=== PATIENT | male | born 1985 | race Caucasian/White ===

== ENCOUNTER 2022-02-12 01:33 | Emergency (ER) | payer MEDICAID, SELFPAY ==
[2022-02-12 01:44] VITALS: BP 118/79; PULSE 87; RESP 18; TEMP 36; O2SAT 97
--- NOTE | 2022-02-12 02:42 | ED.EAR ---
HPI - Ear Problem General Chief complaint: Unspecified Complaint, Adult Stated complaint: Bug flew in ear Time Seen by Provider: 02/12/22 02:00 Source: patient Mode of arrival: ambulatory Limitations: no limitations History of Present Illness HPI Narrative: Patient stepped outside this evening and an insect flew into his ear. He can feel it moving around. There is minimal pain. He tried to flush it out with some water. Complaint: foreign body Location: left ear Related Data Home Medications Medication Instructions Recorded Confirmed acetaminophen 500 mg tablet 500 mg PO Q4-6H PRN 02/12/22 02/12/22 infliximab 100 mg intravenous 500 mg IV .8 weeks 02/12/22 02/12/22 solution (Remicade) Allergies Allergy/AdvReac Type Severity Reaction Status Date / Time environmental AdvReac Mild itchy eyes Uncoded 02/12/22 01:47 Review of Systems Narrative: Review of systems is as outlined above otherwise noted to be negative. [facility] Medical History (Updated 02/12/22 @ 02:03 by Marshall Vazquez MD) Anal fistula Crohn's disease Social History Smoking Status: Current every day smoker What tobacco products do you use: cigarettes Smoking packs per day: 0.5 Smoking cigarettes per day: 10.0 Years smoked: 0 Smoking pack-years: 0.00 Do you use any of these nicotine containing products: None Second hand tobacco smoke exposure: No How often do you have a drink containing alcohol: monthly or less How many standard drinks containing alcohol do you have on a typical day: 1 or 2 How often do you have six or more drinks on one occasion: Never AUDIT-C Alcohol total score: 1 Non-prescribed substance use: denies use service: No Exam Const: Vital Signs, click to edit/add: Vital Signs - 24 hr 02/12/22 01:44 Temperature 96.8 F L Pulse Rate [Left P ulse Oximeter] 87 Respiratory Rate 18 Blood Pressure [Le ft Upper Arm] 118/79 Pulse Oximetry 97 Documenting provider has reviewed patient's vital signs: yes Common normals: no apparent distress General appearance: cooperative Orientation/consciousness: Yes awake, Yes oriented to person, Yes oriented to place and Yes oriented to time HENMT: Common normals: normocephalic, hearing grossly normal bilaterally, external ears normal, EAC's normal ( Prior to my exam the nurse had drowned the insect and it is not moving), TM's normal bilaterally and external nose normal Head and scalp: normocephalic Face and sinus: normal facial exam Nose: external nose normal General ear: hearing grossly impaired External ear: external ears normal External auditory canal: EAC's normal ( Prior to my exam the nurse had drowned the insect and it is not moving) Tympanic membrane: TM's normal bilaterally Neuro: Sensorium/orientation: awake, oriented to person, oriented to place and oriented to time Course Course Hospital Course: The insect is drowned and removed with an alligator forceps. Patient tolerated this well. No complications. Vital Signs Vital signs: Initial Vital Signs Temperature 96.8 F L 02/12/22 01:44 Temperature Source Temporal Artery Scan 02/12/22 01:44 Pulse Rate 87 02/12/22 01:44 Pulse Rhythm 02/12/22 01:44 Respiratory Rate 18 02/12/22 01:44 Blood Pressure 118/79 02/12/22 01:44 Blood Pressure Mean 92 02/12/22 01:44 Blood Pressure Position Right Lateral 02/12/22 01:44 Pulse Oximetry 97 02/12/22 01:44 Oxygen Delivery Method 02/12/22 01:44 Vital Signs Temperature 96.8 F L 02/12/22 01:44 Pulse Rate 87 02/12/22 01:44 Respiratory Rate 18 02/12/22 01:44 Blood Pressure 118/79 02/12/22 01:44 Pulse Oximetry 97 02/12/22 01:44 Temperature 96.8 F L 02/12/22 01:44 Pulse Rate 87 02/12/22 01:44 Respiratory Rate 18 02/12/22 01:44 Blood Pressure 118/79 02/12/22 01:44 Pulse Oximetry 97 02/12/22 01:44 Discharge Plan Discharge Clinical Impression: Foreign body in left ear Condition: Improved Instructions: Ear Foreign Body (ED) Additional Instructions: follow-up as needed. Activity Level: No Restrictions Discharge Diet: Regular Prescriptions: No Action infliximab [Remicade] 100 mg recon soln 500 mg IV .8 weeks 0RF acetaminophen 500 mg tablet 500 mg PO Q4-6H [id number] Stand Alone Forms: MyHealth Info Instructions Procedures Foreign Body Removal Site: ear Sedation/Analgesia: none Technique: removal with forceps Confirmed by:: direct visualization Complications: none
== END 2022-02-12 04:00 | disposition home or self-care (01) ==
LOC: ED 02:11
PROVIDERS: Emergency Provider Family Medicine
DX: T16.2XXA Foreign body in left ear, initial encounter (principal)
CPT/HCPCS: 10120; 99281; 99283

== ENCOUNTER 2025-07-11 03:05 | Emergency (ER) | payer MEDICAID, SELFPAY ==
--- OUTSIDE RECORDS SUMMARY | 2025-06-22 05:40 | XMS_ITS | Continuity of Care Document ---
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 Role Phone Aleena Murillo Unavailable Unavailable Allergies, Adverse Reactions, Alerts Substance Reaction Status Criticality No Known Allergies Active No Inform ation Medications Medication Instructions Dosage Effective Dates (start - stop) Status Comments TYLENOL 8 HOUR Administer Tylenol 650 mg half hour before infusion - Active tacrolimus 0.03 % topical ointment apply by topical route 2 times every day a thin layer to the affected area(s) ; rub in gently and completely 0.00 - Active Claritin 10 mg tablet Take Claritin 10mg day before and day of infusion - Active Solu-Medrol (PF) 40 mg/mL solution for injection Administer Solu-medrol 40 mg IV pre-infusion - Active Tylenol 325 mg tablet Take Tylenol 650mg PO half hour before infusion - Active Remicade 100 mg intravenous solution Administer Remicade 5mg/kg every eight weeks, infuse by IV route - Active VITAMIN D3 (unknown strength) take 1 tablet by oral route every day Not Available - Active doxycycline hyclate 20 mg tablet take 1 tablet by oral route every day 1 hour before a meal or 2 hours after a meal 20 MG - Active Procedures Procedure Date Inj, methylpred sod succ 5mg Remicade Per 10 Mg Remicade Per 10 Mg Each Add Seq IV Push, Non Chem 25 IV Infusion Up To 1 Hour Routine Serum Collection Offic/outpt E&m Estab Low Remicade Per 10 Mg Remicade Per 10 Mg IV Infusion Up To 1 Hour Each Add Seq IV Push, Non Chem 25 Inj, methylpred sod succ 5mg Remicade Per 10 Mg Remicade Per 10 Mg Inj, methylpred sod succ 5mg Each Add Seq IV Push, Non Chem IV Infusion Up To 1 Hour Routine Serum Collection Remicade Per 10 Mg Remicade Per 10 Mg IV Infusion Up To 1 Hour Each Add Seq IV Push, Non Chem 25 Inj, methylpred sod succ 5mg Remicade Per 10 Mg Remicade Per 10 Mg IV Infusion Up To 1 Hour Inj, methylpred sod succ 5mg Remicade Per 10 Mg Remicade Per 10 Mg IV Infusion Up To 1 Hour Inj, methylpred sod succ 5mg Each Add Seq IV Push, Non Chem Routine Serum Collection Remicade Per 10 Mg Remicade Per 10 Mg IV Infusion Up To 1 Hour Each Add Seq IV Push, Non Chem 24 Inj, methylpred sod succ 5mg Remicade Per 10 Mg Remicade Per 10 Mg IV Infusion Up To 1 Hour Each Add Seq IV Push, Non Chem 24 Inj, methylpred sod succ 5mg Routine Serum Collection Offic/outpt E&m Estab Low-mod 4 Remicade Per 10 Mg IV Infusion Up To 1 Hour Inj, methylpred sod succ 5mg Each Add Seq IV Push, Non Chem 24 Remicade Per 10 Mg Routine Serum Collection Remicade Per 10 Mg IV Infusion Up To 1 Hour Each Add Seq IV Push, Non Chem 24 Remicade Per 10 Mg Inj, methylpred sod succ 5mg Remicade Per 10 Mg Remicade Per 10 Mg IV Infusion Up To 1 Hour Each Add Seq IV Push, Non Chem Inj, methylpred sod succ 5mg Remicade Per 10 Mg Remicade Per 10 Mg Methylpred Na Succinate-40 Mg 4 IV Infusion Up To 1 Hour Each Add Seq IV Push, Non Chem Routine Serum Collection Remicade Per 10 Mg Remicade Per 10 Mg Methylpred Na Succinate-40 Mg 3 Each Add Seq IV Push, Non Chem 23 IV Infusion Up To 1 Hour Offic/outpt E&m Estab Low-mod 3 Remicade Per 10 Mg Remicade Per 10 Mg Methylpred Na Succinate-40 Mg 3 IV Infusion Up To 1 Hour Each Add Seq IV Push, Non Chem 23 Remicade Per 10 Mg Remicade Per 10 Mg IV Infusion Up To 1 Hour Each Add Seq IV Push, Non Chem 23 Methylpred Na Succinate-40 Mg 3 Routine Serum Collection Remicade Per 10 Mg Remicade Per 10 Mg IV Infusion Up To 1 Hour Each Add Seq IV Push, Non Chem Methylpred Na Succinate-40 Mg 3 Remicade Per 10 Mg Remicade Per 10 Mg Methylpred Na Succinate-40 Mg 3 IV Infusion Up To 1 Hour Each Add Seq IV Push, Non Chem Routine Serum Collection Offic/outpt E&m Estab Low-mod 3 Remicade Per 10 Mg Remicade Per 10 Mg Methylpred Na Succinate-40 Mg 3 IV Infusion Up To 1 Hour Each Add Seq IV Push, Non Chem Routine Serum Collection Remicade Per 10 Mg Remicade Per 10 Mg IV Infusion Up To 1 Hour Each Add Seq IV Push, Non Chem Methylpred Na Succinate-40 Mg 3 Routine Serum Collection Remicade Per 10 Mg Remicade Per 10 Mg IV Infusion Up To 1 Hour Methylpred Na Succinate-40 Mg 2 Each Add Seq IV Push, Non Chem IV Infusion Up To 1 Hour Each Add Seq IV Push, Non Chem Methylpred Na Succinate-40 Mg 2 Remicade Per 10 Mg Remicade Per 10 Mg Routine Serum Collection Offic/outpt E&m Estab Low-mod 2 Each Add Seq IV Push, Non Chem IV Infusion Up To 1 Hour Remicade Per 10 Mg Remicade Per 10 Mg Methylpred Na Succinate-40 Mg 2 IV Infusion Up To 1 Hour Each Add Seq IV Push, Non Chem 22 Remicade Per 10 Mg Remicade Per 10 Mg Methylpred Na Succinate-40 Mg 2 Colonoscopy Flex; W/bx 1/mx Level Iv-surg Path Gross/micro 22 IV Infusion Up To 1 Hour Each Add Seq IV Push, Non Chem 22 Remicade Per 10 Mg Remicade Per 10 Mg Methylpred Na Succinate-40 Mg 2 Routine Serum Collection Offic/outpt E&m Estab Mod-hi 2 22 Immuniz Admin; 1/combo Vacc/to 22 Pneumococcal Polysacch Vac-flori 22 IV Infusion Up To 1 Hour Each Add Seq IV Push, Non Chem 22 Methylpred Na Succinate-40 Mg 2 Remicade Per 10 Mg Remicade Per 10 Mg Telephone E&M II 11-20 Min MILLA Each Add Seq IV Push, Non Chem 21 IV Infusion Up To 1 Hour Methylpred Na Succinate-40 Mg 1 Remicade Per 10 Mg Remicade Per 10 Mg IV Infusion Up To 1 Hour Each Add Seq IV Push, Non Chem 21 Remicade Per 10 Mg Remicade Per 10 Mg Methylpred Na Succinate-40 Mg 1 Routine Serum Collection IV Infusion Up To 1 Hour Each Add Seq IV Push, Non Chem 21 Remicade Per 10 Mg Remicade Per 10 Mg Methylpred Na Succinate-40 Mg 1 IV Infusion Up To 1 Hour Each Add Seq IV Push, Non Chem 21 Remicade Per 10 Mg Remicade Per 10 Mg Methylpred Na Succinate-40 Mg 1 Routine Serum Collection IV Infusion Up To 1 Hour Each Add Seq IV Push, Non Chem 21 Methylpred Na Succinate-40 Mg 1 Remicade Per 10 Mg Remicade Per 10 Mg Routine Serum Collection Hepatic Function Panel Bld Ct; Hg/pltlt Ct Auto/compl 21 IV Infusion Up To 1 Hour Each Add Seq IV Push, Non Chem 21 Methylpred Na Succinate-40 Mg 1 Remicade Per 10 Mg Remicade Per 10 Mg IV Infusion Up To 1 Hour Each Add Seq IV Push, Non Chem 21 Methylpred Na Succinate-40 Mg 1 Remicade Per 10 Mg Remicade Per 10 Mg Offic/outpt E&m Estab Low-mod 0 IV Infusion Up To 1 Hour Each Add Seq IV Push, Non Chem 20 Methylpred Na Succinate-40 Mg 0 Remicade Per 10 Mg Remicade Per 10 Mg Routine Serum Collection Bld Ct; Hg/pltlt Ct Auto/compl 20 Hepatic Function Panel IV Infusion Up To 1 Hour Each Add Seq IV Push, Non Chem 20 Methylpred Na Succinate-40 Mg 0 Remicade Per 10 Mg Remicade Per 10 Mg Each Add Seq IV Push, Non Chem 20 IV Infusion Up To 1 Hour Methylpred Na Succinate-40 Mg 0 Remicade Per 10 Mg Remicade Per 10 Mg Established Level 3 or 15-24 min 2019 IV Infusion Up To 1 Hour Each Add Seq IV Push, Non Chem 20 Methylpred Na Succinate-40 Mg 0 Remicade Per 10 Mg Routine Serum Collection Hepatic Function Panel Bld Ct; Hg/pltlt Ct Auto/compl 20 IV Infusion Up To 1 Hour Each Add Seq IV Push, Non Chem 20 Remicade Per 10 Mg Methylpred Na Succinate-40 Mg 0 Each Add Seq IV Push, Non Chem 20 IV Infusion Up To 1 Hour Methylpred Na Succinate-40 Mg 0 Remicade Per 10 Mg IV Infusion Up To 1 Hour Each Add Seq IV Push, Non Chem 19 Remicade Per 10 Mg Methylpred Na Succinate-40 Mg 9 Routine Serum Collection Bld Ct; Hg/pltlt Ct Auto/compl 19 Hepatic Function Panel IV Infusion Up To 1 Hour Each Add Seq IV Push, Non Chem 19 Methylpred Na Succinate-40 Mg 9 Remicade Per 10 Mg IV Infusion Up To 1 Hour Each Add Seq IV Push, Non Chem 19 Methylpred Na Succinate-40 Mg 9 Remicade Per 10 Mg Remicade Per 10 Mg cancelled appt IV Infusion Up To 1 Hour Remicade Per 10 Mg Remicade Per 10 Mg Routine Serum Collection Hepatic Function Panel Bld Ct; Hg/pltlt Ct Auto/compl 19 IV Infusion Up To 1 Hour Each Add Seq IV Push, Non Chem 19 Methylpred Na Succinate-40 Mg 9 Remicade Per 10 Mg Remicade Per 10 Mg Offic/outpt E&m Estab Low-mod 9 IV Infusion Up To 1 Hour Each Add Seq IV Push, Non Chem 19 Remicade Per 10 Mg Methylpred Na Succinate-40 Mg 9 Routine Serum Collection Bld Ct; Hg/pltlt Ct Auto/compl 19 IV Infusion Up To 1 Hour Each Additional Hour Each Add Seq IV Push, Non Chem 19 Methylpred Na Succinate-40 Mg 9 Remicade Per 10 Mg Routine Serum Collection Bld Ct; Hg/pltlt Ct Auto/compl 19 Hepatic Function Panel IV Infusion Up To 1 Hour Each Additional Hour Each Add Seq IV Push, Non Chem 18 Methylpred Na Succinate-40 Mg 8 Remicade Per 10 Mg IV Infusion Up To 1 Hour Each Additional Hour Each Add Seq IV Push, Non Chem 18 Methylpred Na Succinate-40 Mg 8 Remicade Per 10 Mg Remicade Per 10 Mg Offic/outpt E&m Estab Low-mod 8 Routine Serum Collection Cyanocobalamin Vitamin D; 25 Hydroxy Each Add Seq IV Push, Non Chem 18 IV Infusion Up To 1 Hour Each Additional Hour Methylpred Na Succinate-40 Mg 8 Remicade Per 10 Mg Routine Serum Collection Bld Ct; Hg/pltlt Ct Auto/compl 18 Hepatic Function Panel IV Infusion Up To 1 Hour Each Additional Hour Each Add Seq IV Push, Non Chem 18 Methylpred Na Succinate-40 Mg 8 Remicade Per 10 Mg Each Add Seq IV Push, Non Chem 18 IV Infusion Up To 1 Hour Each Additional Hour Methylpred Na Succinate-40 Mg 8 Remicade Per 10 Mg Each Add Seq IV Push, Non Chem 18 IV Infusion Up To 1 Hour Each Additional Hour Methylpred Na Succinate-40 Mg 8 Remicade Per 10 Mg Routine Serum Collection Hepatic Function Panel Bld Ct; Hg/pltlt Ct Auto/compl 18 IV Infusion Up To 1 Hour Each Additional Hour Each Add Seq IV Push, Non Chem 17 Methylpred Na Succinate-40 Mg 7 Remicade Per 10 Mg IV Infusion Up To 1 Hour Each Additional Hour Each Add Seq IV Push, Non Chem 17 Methylpred Na Succinate-40 Mg 7 Remicade Per 10 Mg Offic/outpt E&m Estab Mod-hi 2 17 Routine Serum Collection Immuniz Admin; 1/combo Vacc/to 17 Influenza vaccine-quadrivalent 0.5 ML Se Immuniz Admin; 2/> Sing/comb V 17 Hepatitis A Vaccine Adult Dose 17 Iron Iron Binding Capacity Cyanocobalamin Folic Acid; Serum Ferritin Vitamin D; 25 Hydroxy Bilirubin; Direct Comp Metabolic Panel Bld Ct; Hg/pltlt Ct Auto/compl 17 IV Infusion Up To 1 Hour Each Additional Hour Each Add Seq IV Push, Non Chem 17 Methylpred Na Succinate-40 Mg 7 Remicade Per 10 Mg IV Infusion Up To 1 Hour Each Additional Hour Each Add Seq IV Push, Non Chem 17 Methylpred Na Succinate-40 Mg 7 Remicade Per 10 Mg IV Infusion Up To 1 Hour Each Additional Hour Each Add Seq IV Push, Non Chem 17 Methylpred Na Succinate-40 Mg 7 Remicade Per 10 Mg Remicade Per 10 Mg Routine Serum Collection Hepatic Function Panel Bld Ct; Hg/pltlt Ct Auto/compl 17 Each Add Seq IV Push, Non Chem 17 IV Infusion Up To 1 Hour Each Additional Hour Methylpred Na Succinate-40 Mg 7 Remicade Per 10 Mg IV Infusion Up To 1 Hour Each Additional Hour Each Add Seq IV Push, Non Chem 16 Methylpred Na Succinate-40 Mg 6 Remicade Per 10 Mg Remicade Per 10 Mg Routine Serum Collection Hepatic Function Panel Bld Ct; Hg/pltlt Ct Auto/compl 16 IV Infusion Up To 1 Hour Each Additional Hour Remicade Per 10 Mg IV Infusion Up To 1 Hour Each Additional Hour Remicade Per 10 Mg IV Infusion Up To 1 Hour Each Additional Hour Remicade Per 10 Mg Routine Serum Collection Bld Ct; Hg/pltlt Ct Auto/compl 16 Hepatic Function Panel IV Infusion Up To 1 Hour Each Additional Hour Remicade Per 10 Mg Remicade Per 10 Mg IV Infusion Up To 1 Hour Each Additional Hour Remicade Per 10 Mg Remicade Per 10 Mg Offic/outpt E&m Estab Mod-hi 2 16 Routine Serum Collection Immuniz Admin; 1/combo Vacc/to 16 Influenza vaccine-quadrivalent 16 Immuniz Admin; 2/> Sing/comb V 16 [id number] Vaccine Immuniz Admin; 2/> Sing/comb V 16 Hepatitis A Vaccine Adult Dose 16 Cyanocobalamin IV Infusion Up To 1 Hour Each Additional Hour Remicade Per 10 Mg Remicade Per 10 Mg Routine Serum Collection Bld Ct; Hg/pltlt Ct Auto/compl 15 Hepatic Function Panel IV Infusion Up To 1 Hour Each Additional Hour Remicade Per 10 Mg Remicade Per 10 Mg IV Infusion Up To 1 Hour Each Additional Hour Remicade Per 10 Mg Remicade Per 10 Mg IV Infusion Up To 1 Hour Each Additional Hour Remicade Per 10 Mg Remicade Per 10 Mg Routine Serum Collection Bld Ct; Hg/pltlt Ct Auto/compl 15 Hepatic Function Panel IV Infusion Up To 1 Hour Each Additional Hour Remicade Per 10 Mg Remicade Per 10 Mg IV Infusion Up To 1 Hour Each Additional Hour Remicade Per 10 Mg Offic/outpt E&m Estab Mod-hi 2 15 Routine Serum Collection Hepatitis A Antibody; Igg & Ig 15 Hepatitis B Surface Antibody IV Infusion Up To 1 Hour Each Additional Hour Remicade Per 10 Mg Routine Serum Collection Bld Ct; Hg/pltlt Ct Auto/compl 14 Hepatic Function Panel IV Infusion Up To 1 Hour Each Additional Hour Remicade Per 10 Mg IV Infusion Up To 1 Hour Each Additional Hour Remicade Per 10 Mg Offic/outpt E&m Estab Low-mod 4 Routine Serum Collection Hepatic Function Panel Colonoscopy Flex; W/bx 1/mx Level Iv-surg Path Gross/micro 14 IV Infusion Up To 1 Hour Each Additional Hour Remicade Per 10 Mg Offic/outpt E&m Estab Mod-hi 2 14 Routine Serum Collection Pneumococcal Polysacch Vac-flori [address]; Hg/pltlt Ct Auto/compl 14 Cyanocobalamin Immuniz Admin; 1/combo Vacc/to 14 Remicade Per 10 Mg IV Infusion Up To 1 Hour Each Additional Hour Routine Serum Collection Bld Ct; Hg/pltlt Ct Auto/compl 14 Hepatic Function Panel Remicade Per 10 Mg IV Infusion Up To 1 Hour Each Additional Hour Remicade Per 10 Mg IV Infusion Up To 1 Hour Each Additional Hour Routine Serum Collection IV Infusion Up To 1 Hour Each Additional Hour IV Infusion Up To 1 Hour Each Additional Hour Routine Serum Collection Bld Ct; Hg/pltlt Ct Auto/compl 13 Hepatic Function Panel IV Infusion Up To 1 Hour Each Additional Hour Remicade Per 10 Mg IV Infusion Up To 1 Hour Each Additional Hour Remicade Per 10 Mg IV Infusion Up To 1 Hour Each Additional Hour Remicade Per 10 Mg IV Infusion Up To 1 Hour Each Additional Hour Colonoscopy Flex; W/bx 1/mx Level Iv-surg Path Gross/micro [address] Hg/pltlt Ct Auto/compl 12 Cyanocobalamin Comp Metabolic Panel Offic/outpt E&m Estab Mod-hi 2 12 Immuniz Admin; 1/combo Vacc/to 12 Routine Serum Collection G8447 Influenza Vaccine Routine Serum Collection Bld Ct; Hg/pltlt Ct Auto/compl 12 Hepatic Function Panel Remicade Per 10 Mg IV Infusion Up To 1 Hour Each Additional Hour Remicade Per 10 Mg IV Infusion Up To 1 Hour Each Additional Hour Remicade Per 10 Mg IV Infusion Up To 1 Hour Each Additional Hour Offic/outpt E&m Estab Low-mod 2 G8447 Remicade Per 10 Mg Each Add Seq IV Push, Non Chem 12 Methylpred Na Succinate-40 Mg 2 IV Infusion Up To 1 Hour Each Additional Hour Remicade Per 10 Mg Skin Test; Tuberculosis Intrad 12 Offic/outpt E&m Estab Mod-hi 2 12 Pneumococcal Polysacch Vac-flori 12 Immuniz Admin; 1/combo Vacc/to 12 Routine Serum Collection G8447 Influenza Vaccine Immuniz Admin; 2/> Sing/comb V 12 Routine Serum Collection IV Infusion Up To 1 Hour Each Additional Hour Remicade Per 10 Mg IV Infusion Up To 1 Hour Each Additional Hour Remicade Per 10 Mg IV Infusion Up To 1 Hour Each Additional Hour Remicade Per 10 Mg Offic/outpt E&m Estab Mod-hi 2 09 Routine Serum Collection G8447 IV Infusion Up To 1 Hour Each Additional Hour Remicade Per 10 Mg IV Infusion Up To 1 Hour Each Additional Hour Remicade Per 10 Mg Offic/outpt E&m Estab Mod-hi 2 09 Routine Serum Collection G8447 IV Infusion Up To 1 Hour Each Additional Hour Remicade Per 10 Mg IV Infusion Up To 1 Hour Each Additional Hour Remicade Per 10 Mg IV Infusion Up To 1 Hour Each Additional Hour Remicade Per 10 Mg IV Infusion Up To 1 Hour Each Additional Hour Remicade Per 10 Mg IV Infusion Up To 1 Hour Each Additional Hour Remicade Per 10 Mg Offic/outpt E&m Estab Low-mod 8 IV Infusion Up To 1 Hour Each Additional Hour Remicade Per 10 Mg IV Infusion Up To 1 Hour Each Additional Hour Remicade Per 10 Mg Offic/outpt E&m Estab Low-mod 7 IV Infusion Up To 1 Hour Each Additional Hour Remicade Per 10 Mg IV Infusion Up To 1 Hour Each Additional Hour Remicade Per 10 Mg Offic/outpt E&m Estab Low-mod 7 Routine Serum Collection IV Infusion Up To 1 Hour Each Additional Hour Remicade Per 10 Mg IV Infusion Up To 1 Hour Each Additional Hour Remicade Per 10 Mg Offic/outpt E&m Estab Low-mod 6 Routine Serum Collection IV Infusion Up To 1 Hour Each Additional Hour Remicade Per 10 Mg Offic/outpt E m Estab Low Routine Serum Collection Offic/outpt E m Estab Mod Routine Serum Collection Offic Cons New/estab Mod- Routine Serum Collection Advance Directives Directive Yes / No Effective Date File Name No Information Encounters Encounter Description Practice Location Reason(s) For Visit Diagnoses Date Provider Providers Copied on Encounter [facility] ELYSSA HERNANDEZ [address] [address], [place], [place], [id number], [place] tel:[phone] [facility] No Information 5 Cassie Flood. [address] [facility], [place], [place], [id number], [place]. tel:[phone] Karl Ma MD. tel:[phone] [facility], [address] [address], [place], [id number], [place] tel:[phone] [facility] [place] Crohn's disease of large intestine without complications 5 George Steiner. [address], [id number], [place]. tel:[phone] Referring Provider: Referral Self, USE FOR SELF REFERRALS. [facility], [address] [address], [place], [id number], [place] tel:[phone] [facility] No Information 5 Yolanda Todd. [address], [id number], [place]. tel:[phone] Referring Provider: Referral Self, USE FOR SELF REFERRALS. [facility], [address] [address], [place], [id number], [place] tel:[phone] [facility] [place] Crohn's disease of large intestine without complications 5 Ernie Tamayo. [address], [id number], [place]. tel:[phone] Offic/outpt E&m Estab Low [facility], [address] [address], [place], [id number], [place] tel:[phone] [facility] GI Symptoms or Concerns (chief complaint) Crohn's disease of perianal region with other complication 5 Yolanda Todd. [address], [id number], [place]. tel:[phone] Karl Ma MD. tel:[phone] erring Provider: Referral Self, USE FOR SELF REFERRALS. [facility], [address] [address], [place], [id number], [place] tel:[phone] [facility] [place] Crohn's disease of large intestine without complications 5 Isrrael Olmos. [address] [facility], [facility] [address], [place], [id number], [place]. tel:[phone] Karl Ma MD. tel:[phone] erring Provider: Referral Self, USE FOR SELF REFERRALS. [facility], [address] [address], [place], [id number], [place] tel:[phone] [facility] [place] Crohn's disease of large intestine without complications 5 Ernie Tamayo. [address] [facility], [facility] [address], [place], [id number], [place]. tel:[phone] [facility], [address] [address], [place], [id number], [place] tel:[phone] [facility] [place] Crohn's disease of large intestine without complications 5 Candido Sexton. [address], [id number], [place]. tel:[phone] Karl Ma MD. tel:[phone] erring Provider: Referral Self, USE FOR SELF REFERRALS. [facility], [address] [address], [place], [id number], [place] tel:[phone] [facility] Crohn's disease of large intestine without complications 5 Yolanda Todd. [address] [facility], [facility] [address], [place], [id number], [place]. tel:[phone] Referring Provider: Referral Self, USE FOR SELF REFERRALS. [facility], [address] [address], [place], [id number], [place] tel:[phone] [facility] Crohn's disease of large intestine without complications 5 Yolanda Todd. [address] [facility], [facility] [address], [place], [id number], [place]. tel:[phone] Karl Ma MD. tel:[phone] [facility], [address] [address], [place], [id number], [place] tel:[phone] [facility]fusion [place] Crohn's disease of large intestine without complications 5 Isrrael Olmos. [address] [facility], [address], [id number], [place]. tel:[phone] Ma MD. tel:[phone] erring Provider: Referral Self, USE FOR SELF REFERRALS. [facility], [address] [address], [place], [place], [id number], [place] tel:[phone] [facility] [place] Crohn's disease of large intestine without complications 5 Yolanda Todd. [address] [place] [address], [id number], [place]. tel:[phone] [facility], [address] [address], [place], [id number], [place] tel:[phone] [facility] [place] Crohn's disease of large intestine without complications 5 Bipin Elaine. [address] [place] [address], [id number], [place]. tel:[phone] Ma MD. tel:[phone] erring Provider: Referral Self, USE FOR SELF REFERRALS. [facility], [address] [address], [place], [place], [id number], [place] tel:[phone] [facility] [place] Crohn's disease of large intestine without complications 5 Yolanda Todd. [address] [place] [address], [id number], [place]. tel:[phone] Ma MD. tel:[phone] [facility], [address] [address], [place], [id number], [place] tel:[phone] [facility] [place] Crohn's disease of large intestine without complications 5 Manolo Garcia. [address] [place] [address], [id number], [place]. tel:[phone] Karl Ma MD. tel:[phone] erring Provider: Referral Self, USE FOR SELF REFERRALS. [facility], [address] [address], [place], [id number], [place] tel:[phone] [facility] Crohn's disease of large intestine without complications 5 Yolanda Todd. [address] [place] [address], [id number], [place]. tel:[phone] Referring Provider: Referral Self, USE FOR SELF REFERRALS. [facility], [address] [address], [place], [id number], [place] tel:[phone] [facility] [place] Crohn's disease of large intestine without complications 5 Yolanda Todd. [address] [place] [address], [id number], [place]. tel:[phone] Karl Ma MD. tel:[phone] [facility], [address] [address], [place], [id number], [place] tel:[phone] [facility] Crohn's disease of large intestine without complications 4 Perez Raphael. [address] [place] [address], [id number], [place]. tel:[phone] Karl Ma MD. tel:[phone] erring Provider: Referral Self, USE FOR SELF REFERRALS. [facility], [address] [address], [place], [id number], [place] tel:[phone] [facility] [place] Crohn's disease of large intestine without complications 4 Yolanda Todd. [address] [place] [address], [place], [id number], [place]. tel:[phone] [facility], [address] [address], [place], [id number], [place] tel:[phone] [facility] [place] Crohn's disease of large intestine without complications Apr- 4 Sabra Herndon. [address], [id number], [place]. tel:[phone] Karl Ma MD. tel:[phone] erring Provider: Referral Self, USE FOR SELF REFERRALS. [facility], [address] [address], [place], [id number], [place] tel:[phone] [facility] Crohn's disease of large intestine with other complication Apr- 4 Yolanda Todd. [address] [place] [address], [id number], [place]. tel:[phone] Referring Provider: Referral Self, USE FOR SELF REFERRALS. [facility], [address] [address], [place], [id number], [place] tel:[phone] [facility] [place] Crohn's disease of large intestine without complications Apr- 4 Yolanda Todd. [address] [place] [address], [id number], [place]. tel:[phone] Offic/outpt E&m Estab Low-mod [facility], [address] [address], [place], [id number], [place] tel:[phone] [facility] GI Symptoms or Concerns (chief complaint) Crohn's disease of perianal region with other complication 4 Yolanda Todd. [address] [place] [address], [id number], [place]. tel:[phone] Karl Ma MD. tel:[phone] erring Provider: Referral Self, USE FOR SELF REFERRALS. [facility], [address] [address], [place], [address], [place] tel:[phone] [facility] [place] Crohn's disease of large intestine without complications 4 Alvaro Grayson [address], [id number], [place]. tel:[phone] Ma MD. tel:[phone] erring Provider: Referral Self, USE FOR SELF REFERRALS. [facility], [address] [address], [place], [address], [place] tel:[phone] [facility] Crohn's disease of large intestine without complications 4 Yolanda Todd. 3001 [facility] [address], [place], [address], [place]. tel:[phone] Ma MD. tel:[phone] erring Provider: Referral Self, USE FOR SELF REFERRALS. [facility], [address] [address], [place], [address], [place] tel:[phone] [facility] [place] Crohn's disease of large intestine without complications 4 [facility] Bee. [address], [id number], [place]. tel:[phone] [facility], [address] [address], [place], [address], [place] tel:[phone] [facility] [place] Crohn's disease of large intestine without complications 4 Flori Agrawal. [address], [id number], [place]. tel:[phone] Ma MD. tel:[phone] erring Provider: Referral Self, USE FOR SELF REFERRALS. [facility], [address] [address], [place], [address], [place] tel:[phone] [facility] [place] Crohn's disease of large intestine without complications 4 [facility]. 3001 [facility], [facility] [address], [place], [address], [place]. tel:[phone] [facility], [address] [address], [place], [address], [place] tel:[phone] [facility] [place] Crohn's disease of large intestine without complications 4 Nando Sales. [address], [id number], [place]. tel:[phone] Karl Ma MD. tel:[phone] erring Provider: Referral Self, USE FOR SELF REFERRALS. [facility], [address] [address], [place], [address], [place] tel:[phone] [facility] Crohn's disease of large intestine without complications 4 Jennifer Gamboa. [address], [id number], [place]. tel:[phone] [facility], [address] [address], [place], [address], [place] tel:[phone] [facility] [place] Crohn's disease of large intestine without complications 4 Axel Portillo. [address], [id number], [place]. tel:[phone] Referring Provider: Referral Self, USE FOR SELF REFERRALS. [facility], [address] [address], [place], [address], [place] tel:[phone] [facility] Crohn's disease of large intestine without complications 4 Yolanda Todd. 3001 [facility] [address], [place], [address], [place]. tel:[phone] Karl Ma MD. tel:[phone] erring Provider: Referral Self, USE FOR SELF REFERRALS. [facility], [address] [address], [place], [address], [place] tel:[phone] [facility] Crohn's disease of large intestine without complications 4 Jennifer Gamboa. [address], [address], [place]. tel:[phone] [facility], [address] [address], [place], [address], [place] tel:[phone] [facility] [place] Crohn's disease of large intestine without complications 3 Yolanda Todd. [address] [place] [address], [id number], [place]. tel:[phone] Ma MD. tel:[phone] erring Provider: Referral Self, USE FOR SELF REFERRALS. Offic/outpt E&m Estab Low-mod [facility], [address] [address], [place], [address], [place] tel:[phone] [facility] GI Symptoms or Concerns (chief complaint) Crohn's disease of perianal region with other complication 3 Jennifer Gamboa. [address] [place] [address], [id number], [place]. tel:[phone] Ma MD. tel:[phone] erring Provider: Referral Self, USE FOR SELF REFERRALS. [facility], [address] [address], [place], [address], [place] tel:[phone] [facility] Crohn's disease of large intestine without complications 3 Yolanda Todd. [address] [place] [address], [id number], [place]. tel:[phone] [facility], [address] [address], [place], [address], [place] tel:[phone] [facility] [place] Crohn's disease of large intestine without complications 3 George Steiner. [address] [place] [address], [id number], [place]. tel:[phone] Ma MD. tel:[phone] erring Provider: Referral Self, USE FOR SELF REFERRALS. [facility], [address] [address], [place], [address], [place] tel:[phone] [facility] [place] Crohn's disease of large intestine without complications 3 Yolanda Todd. 3001 [facility], [facility] [address], [place], [address], [place]. tel:[phone] [facility], [address] [address], [place], [address], [place] tel:[phone] [facility] [place] Crohn's disease of large intestine without complications 3 Zaire Light. 3001 [facility], [address], [address], [place]. tel:[phone] Referring Provider: Referral Self, USE FOR SELF REFERRALS. [facility], [address] [address], [place], [address], [place] tel:[phone] [facility] Crohn's disease of large intestine without complications 3 Yolanda Todd. 3001 [facility], [facility] [address], [place], [address], [place]. tel:[phone] Karl Ma MD. tel:[phone] erring Provider: Referral Self, USE FOR SELF REFERRALS. [facility], [address] [address], [place], [address], [place] tel:[phone] [facility] Crohn's disease of large intestine without complications 3 Yolanda Todd. 3001 [facility], [facility] [address], [place], [address], [place]. tel:[phone] [facility], [address] [address], [place], [address], [place] tel:[phone] [facility] [place] Crohn's disease of large intestine without complications 3 Alvaro Grayson 3001 [facility], [facility] [address], [place], [address], [place]. tel:[phone] Karl Ma MD. tel:[phone] erring Provider: Referral Self, USE FOR SELF REFERRALS. [facility], [address] [address], [place], [address], [place] tel:[phone] [facility] Crohn's disease of large intestine without complications Jan- 3 Yolanda Todd. [address] [place] [address], [id number], [place]. tel:[phone] [facility], [address] [address], [place], [address], [place] tel:[phone] Infusion [place] Crohn's disease of large intestine without complications 0 3 Jacky Donaldson. [facility] [address], [id number], [place]. tel:[phone] Karl Ma MD. tel:[phone] erring Provider: Referral Self, USE FOR SELF REFERRALS. [facility], [address] [address], [place], [address], [place] tel:[phone] [facility] Crohn's disease of large intestine with fistula 3 Yolanda Todd. [address], [id number], [place]. tel:[phone] Referring Provider: Referral Self, USE FOR SELF REFERRALS. [facility], [address] [address], [place], [address], [place] tel:[phone] [facility] Perianal Crohn's disease, with fistula 3 Yolanda Todd. [address] [place] [address], [id number], [place]. tel:[phone] Offic/outpt E&m Estab Low-mod [facility], [address] [address], [place], [address], [place] tel:[phone] [facility] GI Symptoms or Concerns (chief complaint) Perianal Crohn's disease, with fistula 3 Yolanda Todd. 3001 [facility], [facility] 500, [place], [place], [address], [place]. tel:[phone] Karl Ma MD. tel:[phone] erring Provider: Referral Self, USE FOR SELF REFERRALS. [facility], [address] [address], [place], [address], [place] tel:[phone] [facility] [place] Crohn's disease of large intestine without complications 3 Axel Portillo. 3001 [facility], [facility] [address], [place], [address], [place]. tel:[phone] Referring Provider: Referral Self, USE FOR SELF REFERRALS. [facility], [address] [address], [place], [address], [place] tel:[phone] [facility] Crohn's disease of large intestine without complications 3 Yolanda Todd. 3001 [facility], [facility] [address], [place], [address], [place]. tel:[phone] Karl Ma MD. tel:[phone] erring Provider: Referral Self, USE FOR SELF REFERRALS. [facility], [address] [address], [place], [address], [place] tel:[phone] [facility] [place] Crohn's disease of large intestine without complications 3 Yolanda Todd. 3001 [facility], [facility] [address], [place], [address], [place]. tel:[phone] [facility], [address] [address], [place], [address], [place] tel:[phone] [facility] [place] Crohn's disease of large intestine without complications 3 Isrrael Olmos. 3001 [facility], [facility] [address], [place], [address], [place]. tel:[phone] Karl Ma MD. tel:[phone] erring Provider: Referral Self, USE FOR SELF REFERRALS. [facility], [address] [address], [place], [address], [place] tel:[phone] [facility] Crohn's disease of large intestine without complications 3 Yolanda Todd. 3001 [facility], [facility] 500, [place], [place], [address], [place]. tel:[phone] [facility], [address] [address], [place], [address], [place] tel:[phone] [facility] Crohn's disease of large intestine without complications 3 Yolanda Todd. 3001 [facility], [address], [id number], [place]. tel:[phone] [facility], [address] [address], [place], [address], [place] tel:[phone] [facility] Crohn's disease of large intestine without complications 2 Yolanda Todd. 3001 [facility], [address], [id number], [place]. tel:[phone] Karl Ma MD. tel:[phone] erring Provider: Referral Self, USE FOR SELF REFERRALS. [facility], [address] [address], [place], [address], [place] tel:[phone] [facility] [place] Crohn's disease of large intestine without complications 2 Shahriar Naranjo. 3001 [facility], [facility] [address], [place], [address], [place]. tel:[phone] Referring Provider: Referral Self, USE FOR SELF REFERRALS. [facility], [address] [address], [place], [address], [place] tel:[phone] [facility] [place] Crohn's disease of large intestine without complications 2 Yolanda Todd. 3001 [facility], [facility] [address], [place], [address], [place]. tel:[phone] [facility], [address] [address], [place], [address], [place] tel:[phone] [facility] Crohn's disease of large intestine without complications Sep-2 0-202 2 Hubert Cee. [address] [place] [address], [place] [address], [place], [place], [address], [place]. tel:[phone] Referring Provider: Jaye Luz, [address] [place] [address] 500, [place], [address] . tel:[phone] [facility], [address] [address], [place], [address], [place] tel:[phone] [facility] [place] Crohn's disease of large intestine without complications Sep-2 0 2 Ever Carlson. [address] [place] [address], [id number], [place]. tel:[phone] Karl Ma MD. tel:[phone] erring Provider: Referral Self, USE FOR SELF REFERRALS. [facility], [address] [address], [place], [address], [place] tel:[phone] [facility] Crohn's disease of large intestine without complications Sep-2 0 2 Yolanda Todd. [address] [place] [address], [place], [place], [address], [place]. tel:[phone] Karl Ma MD. tel:[phone] erring Provider: Referral Self, USE FOR SELF REFERRALS. Offic/outpt E&m Estab Low-mod [facility], [address] [address], [place], [address], [place] tel:[phone] [facility] GI Symptoms or Concerns (chief complaint) Perianal Crohn's disease, with fistula Sep-0 6 2 Yolanda Todd. [address] [place] [address], [place], [place], [address], [place]. tel:[phone] Ma MD. tel:[phone] erring Provider: Harshal Amaya MD, [address], [place], [address]. tel:[phone] [facility], [address] [address], [place], [address], [place] tel:[phone] [facility] [place] Crohn's disease of large intestine without complications 2 Jacky Donaldson. 3001 [facility], [facility] 500, [place], [place], [address], [place]. tel:[phone] 8418Riki Ma MD. tel:[phone] erring Provider: Referral Self, USE FOR SELF REFERRALS. [facility], [address] [address], [place], [place], [address], [place] tel:[phone] [facility] [place] Crohn's disease of large intestine without complications 2 Jacky Donladson. 3001 [facility], [facility] [address], [place], [address], [place]. tel:[phone] 1876Riki Ma MD. tel:[phone] erring Provider: Referral Self, USE FOR SELF REFERRALS. [facility], [address] [address], [place], [address], [place] tel:[phone] [facility] Crohn's disease of large intestine with fistulaExternal hemorrhoidsResi dual hemorrhoidal skin tagsCrohn's disease of large intestine with fistula 2 Yolanda Todd. 3001 [facility], [address], [place], [place], [address], [place]. tel:[phone] 5851Andrez Ma MD. tel:[phone] erring Provider: Harshal Amaya MD, [address], [place], [address]. tel:[phone] [facility], [address] [address], [facility], [address], [place] tel:[phone] [facility] [place] Crohn's disease of large intestine without complications Apr-0 2 Flori Agrawal. [address] [place] [address], [id number], . tel:[phone] 6136Andrez Ma MD. [phone] erring Provider: Referral Self, USE FOR SELF REFERRALS. [facility], [address] [address], [place] [facility], [address], [place] tel:[phone] [facility] Crohn's disease of large intestine without complications Apr-0 2 Yolanda Todd. [address] [place] [address], [address], [place]. tel:[phone] 5577Andrez Ma MD. tel:[phone] erring Provider: Referral Self, USE FOR SELF REFERRALS. [facility], [address] [address], [place], [address], [place] tel:[phone] [facility] No Information Oct-2 2 Yumiko Lau. [address] [place] [address], [id number], [place]. tel:[phone] Ma MD. tel:[phone] Offic/outpt E&m Estab Mod-hi 2 [facility], [address] [address], [place], [address], [place] tel:[phone] [facility] GI Symptoms or Concerns (chief complaint) Crohn's disease of perianal region with fistulaRash Fe-2 2 Yolanda Todd. [address] [place] [address], [id number], [place]. tel:[phone] 7066Andrez Ma MD. tel:[phone] erring Provider: Referral Self, USE FOR SELF REFERRALS. [facility], [address] [address], [place], [address], [place] tel:[phone] [facility] Crohn's disease of large intestine without complications Feb-0 8-202 2 Ever Carlson. [address], [id number], [place]. tel:[phone] Karl Ma MD. tel:[phone] erring Provider: Referral Self, USE FOR SELF REFERRALS. Telephone E&M II 11-20 Min MD MILLA [facility], [address] [address], [place], [address], [place] tel:[phone] [facility] GI Symptoms or Concerns (chief complaint) Crohn's disease of perianal region with fistula 2 Uzielmehdi VYAS Judi. [address] [place] [address], [id number], [place]. tel:[phone] Karl Ma MD. tel:[phone] erring Provider: Referral Self, USE FOR SELF REFERRALS. [facility], [address] [address], [place], [address], [place] tel:[phone] [facility] [place] Crohn's disease of large intestine without complications 1 Jacky Donaldson. [address] [place] [address], [id number], [place]. tel:[phone] 1402 Karl Ma MD. tel:[phone] erring Provider: Harshal Amaya MD, [address], [place], [address]. tel:[phone] [facility], [address] [address], [place], [address], [place] tel:[phone] [facility] [place] Crohn's disease of large intestine without complications 1 Hubert Cee. [address], [id number], [place]. tel:[phone] Karl Ma MD. tel:[phone] [facility], [address] [address], [place], [address], [place] tel:[phone] [facility] [place] Crohn's disease of large intestine without complications 1 Ever Carlson. [address], [id number], . tel:[phone] Karl Ma MD. tel:[phone] erring Provider: Referral Self, USE FOR SELF REFERRALS. [facility], [address] [address], [place], [address], [place] tel:[phone] [facility] Crohn's disease of perianal region with other complication 1 Yolanda Todd. [address] [place] [address], [address], [place]. tel:[phone] Karl Ma MD. tel:[phone] erring Provider: Referral Self, USE FOR SELF REFERRALS. [facility], [address] [address], [facility] [facility] [place], [address], [place] tel:[phone] [facility] No Information 1 Hubert Cee. [address], [id number], [place]. tel:[phone] [facility], [address] [address], [facility] [facility], [address], [place] tel:[phone] [facility] [place] Crohn's disease of large intestine without complications 1 Ashley Hendricks. [address], [id number], [place]. tel:[phone] Karl Ma MD. tel:[phone] erring Provider: Referral Self, USE FOR SELF REFERRALS. [facility], [address] [address], [place], [address], [place] tel:[phone] [facility] [place] Crohn's disease of large intestine without complications 1 Yolanda Todd. [address] [place] [address], [id number], [place]. tel:[phone] Ma MD. tel:[phone] erring Provider: Referral Self, USE FOR SELF REFERRALS. [facility], [address] [address], [place], [address], tel:[phone] [facility] Crohn's disease of large intestine without complications 1 Yolanda Todd. [address] [place] [address], [id number], [place]. tel:[phone] Ma MD. tel:[phone] erring Provider: Referral Self, USE FOR SELF REFERRALS. [facility], [address] [address], [place], [address], tel:[phone] [facility] Crohn's disease of large intestine without complications 1 Nando Sales. [address] [place] [address], [id number], [place]. tel:[phone] Ma MD. tel:[phone] erring Provider: Harshal Amaya MD, [address] , [place], [address]. tel:[phone] [facility], [address] [address], [facility] [place], [address], tel:[phone] [facility] Crohn's disease of large intestine without complications 1 Yolanda Todd. [address] [place] [address], [id number], [place]. tel:[phone] Ma MD. tel:[phone] erring Provider: Referral Self, USE FOR SELF REFERRALS. [facility], [address] [address], [place], [address], tel:[phone] [facility] No Information Nov-2 1 Hubert Cee. [address] [place] [address], [id number], [place]. tel:[phone] 2685Andrez Ma MD. tel:[phone] [facility], [address] [address], [place], [place], [address], tel:[phone] [facility] [place] Crohn's disease of large intestine without complications 1 Nando Sales. [address] [place] [address], [id number], . tel:[phone] Ma MD. tel:[phone] erring Provider: Referral Self, USE FOR SELF REFERRALS. [facility], [address] [address], [place], [place], [address], tel:[phone] [facility] [place] Crohn's disease of large intestine without complications 1 Ever Carlson. [address] [place] [address], [id number], . tel:[phone] Ma MD. tel:[phone] erring Provider: Referral Self, USE FOR SELF REFERRALS. Offic/outpt E&m Estab Low-mod [facility], [address] [address], [place], [place], [address], tel:[phone] [facility] GI Symptoms or Concerns (chief complaint) Crohn's disease of perianal region with other complicationRas h, skin 0 Hubert Cee. [address] [place] [address], [id number], [place]. tel:[phone] Ma MD. tel:[phone] erring Provider: Referral Self, USE FOR SELF REFERRALS. [facility], [address] [address], [place], [place], [address], tel:[phone] [facility] Crohn's disease of large intestine without complications 0 Yolanda Todd. [address] [place] [address], [id number], [place]. tel:[phone] Ma MD. tel:[phone] [facility], [address] [address], [place], [address], [place] tel:[phone] [facility] [place] Crohn's disease of large intestine without complications 0 Ashley Hendricks. [address], [id number], [place]. tel:[phone] Ma MD. [phone] erring Provider: Referral Self, USE FOR SELF REFERRALS. [facility], [address] [address], [place], [address], [place] tel:[phone] [facility] Crohn's disease of large intestine without complications 0 Yolanda Todd. [address] [place] [address], [id number], [place]. tel:[phone] Ma MD. tel:[phone] erring Provider: Referral Self, USE FOR SELF REFERRALS. [facility], [address] [address], [place], [address], [place] tel:[phone] [facility] No Information 0 Yolanda Todd. [address], [id number], [place]. tel:[phone] Ma MD. tel:[phone] [facility], [address] [address], [place], [address], [place] tel:[phone] [facility] [place] Crohn's disease of large intestine without complications 0 Ever Carlson. [facility], [address], [id number], [place]. tel:[phone] Ma MD. tel:[phone] erring Provider: Harshal Amaya MD, [address], [place], [address]. tel:[phone] [facility], [address] [address], [place], [address], [place] tel:[phone] [facility] [place] Crohn's disease of large intestine without complications 0 Emi Aguilar. [address] [place] [address], [id number], . tel:[phone] Ma MD. tel:[phone] erring Provider: Referral Self, USE FOR SELF REFERRALS. Established Level 3 or 15-24 min [facility], [address] [address], [place], [id number], [place] tel:[phone] [facility] GI Symptoms or Concerns (chief complaint) Crohn's disease of perianal region with fistulaPenile cyst 0 Yolanda Todd. [address] [place] [address], [id number], [place]. tel:[phone] Ma MD. tel:[phone] erring Provider: Referral Self, USE FOR SELF REFERRALS. [facility], [address] [address], [place], [id number], [place] tel:[phone] [facility] Crohn's disease of large intestine without complications 0 Ever Carlson. [address] [place] [address], [id number], [place]. tel:[phone] Ma MD. tel:[phone] erring Provider: Referral Self, USE FOR SELF REFERRALS. [facility], [address] [address], [place], [address], [place] tel:[phone] [facility] Crohn's disease of large intestine without complications 0 Yolanda Todd. [address] [place] [address], [id number], [place]. tel:[phone] Ma MD. tel:[phone] erring Provider: Referral Self, USE FOR SELF REFERRALS. [facility], [address] [address], [place], [address], [place] tel:[phone] [facility] [place] Crohn's disease of large intestine without complications Oct-3 0 Axel Portillo. [address] [place] [address], [id number], . tel:[phone] Ma MD. [phone] erring Provider: Referral Self, USE FOR SELF REFERRALS. [facility], [address] [address], [place], [address], [place] tel:[phone] [facility] [place] Crohn's disease of large intestine without complications 0 0 Hubert Cee. [address] [place] [address], [id number], . tel:[phone] Ma MD. [phone] erring Provider: Referral Self, USE FOR SELF REFERRALS. [facility], [address] [address], [place], [address], [place] tel:[phone] [facility] Crohn's disease of perianal region with fistula 9 Yolanda Todd. [address] [place] [address], [id number], [place]. tel:[phone] [facility], [address] [address], [place], [address], [place] tel:[phone] [facility] [place] Crohn's disease of large intestine without complications 9 Nando Sales. [address] [place] [address], [id number], [place]. tel:[phone] Ma MD. [phone] erring Provider: Referral Self, USE FOR SELF REFERRALS. [facility], [address] [address], [place], [address], [place] tel:[phone] [facility] Crohn's disease of large intestine without complications 9 Yolanda Todd. [address], [id number], [place]. tel:[phone] Ma MD. tel:[phone] erring Provider: Referral Self, USE FOR SELF REFERRALS. [facility], [address] [address], [place], [address], [place] tel:[phone] [facility] [place] No Information 9 Yolanda Todd. [address], [id number], [place]. tel:[phone] Ma MD. tel:[phone] [facility], [address] [address], [place], [address], [place] tel:[phone] [facility] [place] Crohn's disease of large intestine without complications 9 Jacky Donaldson. [address], [id number], [place]. tel:[phone] Ma MD. tel:[phone] erring Provider: Referral Self, USE FOR SELF REFERRALS. [facility], [address] [address], [place], [address], [place] tel:[phone] [facility] [place] Crohn's disease of large intestine without complications 9 Nando Sales. [address], [id number], [place]. tel:[phone] Ma MD. tel:[phone] erring Provider: Referral Self, USE FOR SELF REFERRALS. [facility], [address] [address], [place], [address], [place] tel:[phone] [facility] [place] No Information 9 Yolanda Todd. [address], [address], [id number], . tel:[phone] Referring Provider: Referral Self, USE FOR SELF REFERRALS. [facility], [address] [address], [facility], [address], tel:[phone] [facility] [place] Crohn's disease of large intestine without complications Ashley Hendricks. [address], [id number], . tel:[phone] Karl Ma MD. tel:[phone] erring Provider: Referral Self, USE FOR SELF REFERRALS. [facility], [address] [address], [place], [address], tel:[phone] [facility] Crohn's disease of large intestine without complications Yolanda Todd. [address] [place] [address], [id number], [place]. tel:[phone] Karl Ma MD. tel:[phone] erring Provider: Referral Self, USE FOR SELF REFERRALS. [facility], [address] [address], [facility] [place], [address], tel:[phone] [facility] [place] Crohn's disease of large intestine without complications 9 Yolanda Todd. [address] [place] [address], [id number], [place]. tel:[phone] Karl Ma MD. tel:[phone] erring Provider: Referral Self, USE FOR SELF REFERRALS. Offic/outpt E&m Estab Low-mod [facility], [address] [address], [place], [address], tel:[phone] [facility] Symptoms or Concerns (chief complaint) Crohn's disease of perianal region with fistulaSensatio n of plugged ear on left sideElevated blood-pressure reading, w/o diagnosis of htn Yolanda Todd. [address], [id number], [place]. tel:[phone] Karl Ma MD. tel:[phone] erring Provider: Referral Self, USE FOR SELF REFERRALS. [facility], [address] [address], [place], [address], [place] tel:[phone] [facility] [place] Crohn's disease of large intestine without complications 9 Axel Portillo. [address] [facility] [place], [place], [address], [place]. tel:[phone] Ma MD. tel:[phone] erring Provider: Referral Self, USE FOR SELF REFERRALS. [facility], [address] [address], [place], [address], [place] tel:[phone] [facility] Crohn's disease of large intestine without complications 9 Yolanda Todd. [address], [id number], [place]. tel:[phone] 3849Riki Ma MD. tel:[phone] erring Provider: Harshal Amaya MD, [address] [facility] [address] , [place], [address]. tel:[phone] [facility], [address] [address], [place], [address], [place] tel:[phone] [facility] Crohn's disease of large intestine without complications 9 Yolanda Todd. [address] [facility], [facility] [place], [place], [address], [place]. tel:[phone] Ma MD. tel:[phone] [facility], [address] [address], [place], [address], [place] tel:[phone] [facility] [place] Crohn's disease of perianal region with fistula 9 Yolanda Todd. [address] [place] [address], [id number], [place]. tel:[phone] [facility], [address] [address], [place], [address], [place] tel:[phone] [facility] [place] Crohn's disease of large intestine without complications 9 Nando Sales. [address] [place] [address], [id number], [place]. tel:[phone] Ma MD. [phone] erring Provider: Referral Self, USE FOR SELF REFERRALS. [facility], [address] [address], [place], [address], [place] tel:[phone] [place] [facility] Crohn's disease of large intestine with fistula 9 Yolanda Todd. [address] [place] [address], [id number], [place]. tel:[phone] Ma MD. [phone] erring Provider: Referral Self, USE FOR SELF REFERRALS. [facility], [address] [address], [place], [address], [place] tel:[phone] [facility] [place] Crohn's disease of large intestine without complications 8 George Steiner. [address] [place] [address], [id number], [place]. tel:[phone] Ma MD. [phone] erring Provider: Referral Self, USE FOR SELF REFERRALS. 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 [address] [place] [address], [id number], [place]. tel:[phone] Ma MD. [phone] erring Provider: Referral Self, USE FOR SELF REFERRALS. Offic/outpt E&m Estab Low-mod [facility], [address] [address], [place], [id number], [place] tel:[phone] [facility] Symptoms or Concerns (chief complaint) Crohn's disease of perianal region with fistulaPenile cyst Sep-0 8 Yolanda Todd. [address] [place] [address], [id number], [place]. tel:[phone] 4918Andrez Ma MD. tel:[phone] erring Provider: Referral Self, USE FOR SELF REFERRALS. [facility], [address] [address], [place], [id number], [place] tel:[phone] [facility] [place] Crohn's disease of large intestine without complications 8 Zaire Light. [address] [place] [address], [id number], [place]. tel:[phone] Ma MD. tel:[phone] erring Provider: Referral Self, USE FOR SELF REFERRALS. [facility], [address] [address], [place], [address], [place] tel:[phone] [facility] Crohn's disease of large intestine without complications 8 Yolanda Todd. [address] [place] [address], [id number], [place]. tel:[phone] Ma MD. tel:[phone] erring Provider: Referral Self, USE FOR SELF REFERRALS. [facility], [address] [address], [place], [address], [place] tel:[phone] [facility] [place] Crohn's disease of large intestine with fistula 8 Axel Portillo. [address] [place] [address], [id number], . tel:[phone] Ma MD. tel:[phone] erring Provider: Referral Self, USE FOR SELF REFERRALS. 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 [address] [place] [address], [id number], [place]. tel:[phone] Ma MD. [phone] erring Provider: Referral Self, USE FOR SELF REFERRALS. 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 [address] [place] [address], [id number], [place]. tel:[phone] Ma MD. [phone] erring Provider: Referral Self, USE FOR SELF REFERRALS. [facility], [address] [address], [place], [address], [place] tel:[phone] [place] [facility] Crohn's disease of large intestine without complications 8 Yolanda Todd. [address] [place] [address], [id number], [place]. tel:[phone] Ma MD. [phone] erring Provider: Referral Self, USE FOR SELF REFERRALS. [facility], [address] [address], [place], [address], [place] tel:[phone] [facility] [place] Crohn's disease of large intestine without complications 7 Yolanda Todd. [address] [place] [address], [id number], [place]. tel:[phone] Ma MD. [phone] erring Provider: Listed Not. [facility], [address] [address], [place], [id number], [place] tel:[phone] [facility] [place] Crohn's disease of large intestine without complications 7 Zaire Light. [address], [id number], [place]. tel:[phone] Ma MD. [phone] erring Provider: Referral Self, USE FOR SELF REFERRALS. [facility], [address] [address], [place], [id number], [place] tel:[phone] [facility] Crohn's disease of perianal region, with fistula 7 Yolanda Tdod. [address], [id number], [place]. tel:[phone] Ma MD. tel:[phone] Offic/outpt E&m Estab Mod-hi 2 [facility], [address] [address], [place], [id number], [place] tel:[phone] [facility] GI Symptoms or Concerns (chief complaint) Crohn's disease of perianal region, with fistulaLesion of lipElevated blood-pressure reading, w/o diagnosis of htn Yolanda Todd. [address] [place] [address], [id number], [place]. tel:[phone] Ma MD. [phone] erring Provider: Referral Self, USE FOR SELF REFERRALS. [facility], [address] [address], [place], [id number], [place] tel:[phone] [facility] [place] Crohn's disease of large intestine without complications 7 Alvaro Grayson [address] [place] [address], [id number], [place]. tel:[phone] 1033Andrez Ma MD. [phone] erring Provider: Referral Self, USE FOR SELF REFERRALS. [facility], [address] [address], [place], [address], [place] tel:[phone] [facility] [place] Crohn's disease of large intestine without complications May-2 7 Nando Sales. [address] [place] [address], [id number], [place]. tel:[phone] Ma MD. [phone] erring Provider: Referral Self, USE FOR SELF REFERRALS. [facility], [address] [address], [place], [address], [place] tel:[phone] [facility] [place] Crohn's disease of large intestine without complications Apr-0 7 Yolanda Todd. [address] [place] [address], [id number], [place]. tel:[phone] Ma MD. [phone] erring Provider: Referral Self, USE FOR SELF REFERRALS. [facility], [address] [address], [place], [address], [place] tel:[phone] [facility] Crohn's disease of large intestine without complications Apr-0 7 Yolanda Todd. [address] [place] [address], [id number], [place]. tel:[phone] Ma MD. [phone] erring Provider: Referral Self, USE FOR SELF REFERRALS. [facility], [address] [address], [place], [address], [place] tel:[phone] [facility] Crohn's disease of large intestine without complications Mar-2 7 Yolanda Todd. [address] [place] [address], [id number], [place]. tel:[phone] Ma MD. tel:[phone] [facility], [address] [address], [place], [address], [place] tel:[phone] [facility] [place] Crohn's disease of large intestine without complications 7 Jacky Donaldson. [address] [facility], [address], [id number], [place]. tel:[phone] Ma MD. [phone] erring Provider: Referral Self, USE FOR SELF REFERRALS. [facility], [address] [address], [place], [address], [place] tel:[phone] [facility] Crohn's disease of large intestine without complications 7 Yolanda Todd. [address] [place] [address], [id number], [place]. tel:[phone] [facility], [address] [address], [place], [address], [place] tel:[phone] [facility] [place] Crohn's disease of large intestine without complications 6 Hubert Cee. [address] [facility], [facility] [address], [place], [address], [place]. tel:[phone] Ma MD. [phone] erring Provider: Referral Self, USE FOR SELF REFERRALS. [facility], [address] [address], [place], [address], [place] tel:[phone] [facility] Crohn's disease of large intestine without complications 6 Yolanda Todd. [address] [facility] [address], [place], [id number], [place]. tel:[phone] Karl Ma MD. [phone] erring Provider: Referral Self, USE FOR SELF REFERRALS. [facility], [address] [address], [place], [address], [place] tel:[phone] [facility] [place] Crohn's disease of large intestine without complications 6 No Information Karl Ma MD. tel:[phone] erring Provider: Referral Self, USE FOR SELF REFERRALS. [facility], [address] [address], [place], [address], [place] tel:[phone] [place] [facility] Crohn's disease of large intestine without complications 6 Yolanda Todd. [address] [place] [address], [address], [id number], [place]. tel:[phone] aKrl Ma MD. tel:[phone] [facility], [address] [address], [place], [address], [place] tel:[phone] [facility] [place] Crohn's disease of large intestine without complications 6 Jacky Donaldson. [address] [place] [address], [id number], [place]. tel:[phone] 4826Riki Ma MD. [phone] erring Provider: Referral Self, USE FOR SELF REFERRALS. [facility], [address] [address], [place], [address], [place] tel:[phone] [facility] [place] Crohn's disease of large intestine without complications 6 Delbert Winchester. [address] [place] [address], [address], [id number], [place]. tel:[phone] Ma MD. [phone] erring Provider: Harshal Amaya MD, [address] , [place], [address]. tel:[phone] [facility], [address] [address], [place], [address], [place] tel:[phone] [facility] Crohn's disease of large intestine without complications 6 Yolanda Todd. [address] [place] [address], [address], [id number], [place]. tel:[phone] Ma MD. tel:[phone] erring Provider: Harshal Amaya MD, [address], [place], [address]. tel:[phone] [facility], [address] [address], [place], [address], [place] tel:[phone] [facility] [place] Crohn's disease of large intestine without complications Apr-2 5-201 6 Axel Portillo. [address], [id number], [place]. tel:[phone] Ma MD. tel:[phone] erring Provider: Harshal Amaya MD, [address], [place], [address]. tel:[phone] [facility], [address] [address], [facility], [address], [place] tel:[phone] [facility] Crohn's disease of large intestine without complications Apr-2 0-201 6 Yolanda Todd. [address] [facility] [address], [place], [id number], [place]. tel:[phone] Ma MD. tel:[phone] [facility], [address] [address], [place], [address], [place] tel:[phone] [facility] [place] Crohn's disease of large intestine without complications Mar-0 1201 6 Flori Agrawal. [address]001 [facility] [address], [place], [id number], [place]. tel:[phone] Ma MD. [phone] erring Provider: Harshal Amaya MD, [address], [place], [address]. tel:[phone] Offic/outpt E&m Estab Mod-hi 2 [facility], [address] [address], [place], [address], [place] tel:[phone] [facility] GI Symptoms or Concerns (chief complaint) Crohn's disease of perianal region, with fistulaDietary counseling and surveillanceEle vated blood-pressure reading, w/o diagnosis of htn 6 Yolanda Todd. [address] [place] [address], [id number], [place]. tel:[phone] 7629Andrez Ma MD. tel:[phone] erring Provider: Harshal Amaya MD, [address], [place], [address]. tel:[phone] [facility], [address] [address], [place], [address], [place] tel:[phone] [facility] [place] Crohn's disease of large intestine without complications 6 Hubert Cee. [address] [place] [address], [id number], [place]. tel:[phone] Ma MD. tel:[phone] erring Provider: Harshal Amaya MD, [address], [place], [address]. tel:[phone] [facility], [address] [address], [place], [address], [place] tel:[phone] [place] [facility] Crohn's disease of perianal region without complication 5 Yolanda Todd. [address] [place] [address], [id number], [place]. tel:[phone] Ma MD. tel:[phone] erring Provider: Harshal Amaya MD, [address], [place], [address]. tel:[phone] [facility], [address] [address], [place], [address], [place] tel:[phone] [facility] [place] Crohn's disease of large intestine without complications 5 Flori Agrawal. [address] [place] [address], [id number], [place]. tel:[phone] Ma MD. tel:[phone] erring Provider: Harshal Amaya MD, [address], [place], [address]. tel:[phone] [facility], [address] [address], [place], [address], [place] tel:[phone] [facility] Crohn's disease of perianal region without complication 5 Yolanda [place]. [address] [facility] [address], [place], [id number], [place]. tel:[phone] Ma MD. tel:[phone] [facility], [address] [address], [place], [address], [place] tel:[phone] [facility] Crohn's disease of perianal region without complication 0 5 Trish Ignacio. [address], [id number], [place]. tel:[phone] 1988Andrez Ma MD. tel:[phone] [facility], [address] [address], [place], [address], [place] tel:[phone] [facility] [place] Crohn's Colitis 5 Theresa Ptaton. [address]001 [facility] [address], [place], [address], [place]. tel:[phone] 2585Andrez Ma MD. tel:[phone] erring Provider: Harshal Amaya MD, [address], [place], [address]. tel:[phone] [facility], [address] [address], [place], [address], [place] tel:[phone] [facility] [place] [facility] Nos 5 Nando Sales. [address] [facility] [address], [place], [address], [place]. tel:[phone] Karl Ma MD. tel:[phone] erring Provider: Harshal Amaya MD, [address], [place], [address]. tel:[phone] [facility], [address] [address], [place], [address], [place] tel:[phone] [facility] No Information 5 Carlos Alberto Kruger. [address] [address], [place], [place], [address], [place]. tel:[phone] Karl Ma MD. tel:[phone] erring Provider: Harshal Amaya MD, [address], [place], [address]. tel:[phone] [facility], [address] [address], [place], [address], [place] tel:[phone] [facility] [place] [facility] Nos 5 Hubert Cee. [address] [address], [place], [place], [address], [place]. tel:[phone] Karl Ma MD. tel:[phone] erring Provider: Harshal Amaya MD, [address], [place], [address]. tel:[phone] [facility], [address] [address], [place], [address], [place] tel:[phone] [facility] Crohn's Ileitis 5 Fina Barreto. [address] [address], [place], [place], [address], [place]. tel:[phone] [facility], [address] [address], [place], [address], [place] tel:[phone] [facility] Crohn's Ileitis Nov- 5 Yolanda [place]. [address], [address], [id number], [place]. tel:[phone] 1913Riki Ma MD. tel:[phone] [facility], [address] [address], [place], [place], [address], [place] tel:[phone] [facility] [place] [facility] Nos 5 Flori Agrawal. [address] [place] [address], [id number], [place]. tel:[phone] 4088Riki Ma MD. [phone] erring Provider: Harshal Amaya MD, [address], [place], [address]. tel:[phone] [facility], [address] [address], [place], [place], [address], [place] tel:[phone] [facility] No Information 5 Yolanda [place]. [address] [place] [address], [id number], [place]. tel:[phone] Ma MD. tel:[phone] Offic/outpt E&m Estab Mod-hi 2 [facility], [address] [address], [place], [place], [address], [place] tel:[phone] [facility] GI Symptoms or Concerns (chief complaint) Crohn's disease of perianal regionAnal painDietary Surveil/sales counselor Elev Bl Pres W/o HypertnCrohn's disease of large intestine without complicationsOt her specified diseases of anus and rectumElevated blood-pressure reading, without diagnosis of hypertensionDie tary counseling and surveillance 5 Yolanda Todd. [address] [place] [address], [id number], [place]. tel:[phone] Ma MD. [phone] erring Provider: Referral Self, USE FOR SELF REFERRALS. [facility], [address] [address], [place], [id number], [place] tel:[phone] [facility] [place] [facility] Nos 5 Yolanda Todd. [address] [place] [address], [id number], [place]. tel:[phone] Ma MD. tel:[phone] erring Provider: Harshal Amaya MD, [address], [place], [address]. tel:[phone] [facility], [address] [address], [place], [id number], [place] tel:[phone] [facility] Crohn's Colitis 4 Yolanda Todd. [address] [place] [address], [id number], [place]. tel:[phone] Ma MD. tel:[phone] erring Provider: Harshal Amaya MD, [address], [place], [address]. tel:[phone] [facility], [address] [address], [place], [id number], [place] tel:[phone] [facility] [place] [facility] Nos 4 Nando Sales. [address] [place] [address], [id number], [place]. tel:[phone] Ma MD. tel:[phone] erring Provider: Harshal Amaya MD, [address], [place], [address]. tel:[phone] [facility], [address] [address], [place], [id number], [place] tel:[phone] [facility] [place] [facility] Nos 4 Yolanda Todd. [address] [place] [address], [id number], [place]. tel:[phone] Ma MD. tel:[phone] erring Provider: Referral Self, USE FOR SELF REFERRALS. Offic/outpt E&m Estab Low-mod [facility], [address] [address], [place], [id number], [place] tel:[phone] [facility] GI Symptoms or Concerns (chief complaint) Perianal Crohn diseaseDietary Surveil/sales counselor Elev Bl Pres W/o Hypertn 4 Yolanda Todd. [address] [place] [address], [address], [id number], [place]. tel:[phone] Karl Ma MD. tel:[phone] erring Provider: Referral Self, USE FOR SELF REFERRALS. [facility], [address] [address], [place], [place], [id number], tel:[phone] [facility] Perianal Crohn diseaseRegional Enteritis Nos 4 Yolanda Todd. [address] [place] [address], [id number], [place]. tel:[phone] Referring Provider: Harshal Amaya MD, [address], [place], [address]. tel:[phone] [facility] [place], [address] [address], [place], [place], [id number], tel:[phone] [facility] [facility] Nos 4 No Information Karl Ma MD. tel:[phone] erring Provider: Referral Self, USE FOR SELF REFERRALS. Offic/outpt E&m Estab Mod-hi 2 [facility], [address] [address], [place], [address], [place] tel:[phone] [facility] GI Symptoms or Concerns (chief complaint) GI Symptoms or Concerns (chief complaint) Regional Enteritis NosPain in the abdomenRectal bleedingDietary Surveil/sales counselor Elev Bl Pres W/o Hypertn 4 Yolanda Todd. [address] [place] [address], [id number], [place]. tel:[phone] Karl Ma MD. tel:[phone] erring Provider: Referral Self, USE FOR SELF REFERRALS. [facility], [address] [address], [place], [address], [place] tel:[phone] [facility] [place] [facility] Nos 4 Carlos Alberto Kruger. [address] [place] [address], [id number], [place]. tel:[phone] Referring Provider: Harshal Amaya MD, [address], [place], [address]. tel:[phone] [facility], [address] [address], [place], [address], [place] tel:[phone] [facility] Enteritis Nos 4 Cassie Flood. [address] [place] [address], [id number], [place]. tel:[phone] Referring Provider: Referral Self, USE FOR SELF REFERRALS. [facility], [address] [address], [place], [address], [place] tel:[phone] [facility] [place] [facility] Nos 4 No Information Referring Provider: Harshal Amaya MD, [address], [place], [address]. tel:[phone] [facility], [address] [address], [place], [address], [place] tel:[phone] [facility] [place] [facility] Nos 4 Yolanda Todd. [address] [place] [address], [id number], [place]. tel:[phone] Referring Provider: Referral Self, USE FOR SELF REFERRALS. [facility], [address] [address], [place], [id number], [place] tel:[phone] [place] [facility] Enteritis Nos Efrain-0 7-201 4 No Information Referring Provider: Referral Self, USE FOR SELF REFERRALS. [facility], [address] [address], [place], [id number], [place] tel:[phone] [facility] [facility] Nos Nov-0 8- 3 Trish Ignacio. [address] [facility], [facility] [address], [place], [place], [id number], [place]. tel:[phone] Referring Provider: Referral Self, USE FOR SELF REFERRALS. [facility], [address] [address], [place], [id number], [place] tel:[phone] [facility] [place] [facility] Nos Sep-0 3 3 Hubert Cee. [address] [facility], [facility] [address], [place], [place], [id number], [place]. tel:[phone] Referring Provider: Referral Self, USE FOR SELF REFERRALS. [facility], [address] [address], [place], [id number], [place] tel:[phone] [facility] Crohn's Ileitis Apr-0 3-201 3 No Information Referring Provider: Harshal Amaya MD, [address], [place], [address]. tel:[phone] [facility], [address] [address], [place], [id number], [place] tel:[phone] [facility] Nos 2 3 No Information Referring Provider: Referral Self, USE FOR SELF REFERRALS. [facility], [address] [address], [place], [id number], [place] tel:[phone] [facility] Nos 3-201 3 No Information Referring Provider: Harshal Amaya MD, [address], [place], [address]. tel:[phone] [facility], [address] [address], [place], [id number], [place] tel:[phone] [facility] [place] [facility]'s Ileitis 2-201 2 No Information Referring Provider: Harshal Amaya MD, [address], [place], [address]. tel:[phone] [facility], [address] [address], [place], [id number], [place] tel:[phone] [facility] Crohn's Ileitis 7 2 Alvaro Grayson [address] [facility], [address], [id number], [place]. tel:[phone] Referring Provider: Harshal Amaya MD, [address], [place], [address]. tel:[phone] [facility], [address] [address], [place], [id number], [place] tel:[phone] [facility] Regional Enteritis NosRegional Enteritis Nos 2 No Information Referring Provider: Harshal Amaya MD, [address], [place], [address]. tel:[phone] Offic/outpt E&m Estab Mod-hi 2 [facility], [address] [address], [place], [id number], [place] tel:[phone] [facility] Crohns (chief complaint) Crohn's IleitisCrohn's Ileitis 2 Cassie Flood. [address] [facility], [facility] [address], [place], [id number], [place]. tel:[phone] Referring Provider: Harshal Amaya MD, [address], [place], [address]. tel:[phone] [facility], [address] [address], [place], [address], [place] tel:[phone] [facility] Crohn's Small/large Intestine 2 Cassie Flood. [address] [facility], [facility] [address], [place], [id number], [place]. tel:[phone] Referring Provider: Listed Not. [facility], [address] [address], [place], [address], [place] tel:[phone] [facility] [place] Crohn's Ileitis 2 Hubert Cee. [address] [facility], [place] [address], [place], [place], [id number], [place]. tel:[phone] Referring Provider: Harshal Amaya MD, [address], [place], [address]. tel:[phone] [facility], [address] [address], [place], [id number], [place] tel:[phone] [facility] [place] [facility]'s Small/large Intestine 2 Trish Ignacio. [address], [id number], [place]. tel:[phone] Referring Provider: Harshal Amaya MD, [address], [place], [address]. tel:[phone] [facility], [address] [address], [place], [address], [place] tel:[phone] [facility] [place] Cro[facility]'s Small/large Intestine Oct- 2 Dominick Graham. [address] [place] [address], [address], [id number], [place]. tel:[phone] Referring Provider: Harshal Amaya MD, [address], [place], [address]. tel:[phone] Offic/outpt E&m Estab Low-mod [facility], [address] [address], [place], [place], [id number], [place] tel:[phone] [facility] Crohns (chief complaint) Crohn's Small/large IntestineCrohn' s Small/large Intestine Fe 2 Cassie Flood. [address] [facility], [address], [id number], [place]. tel:[phone] Referring Provider: Harshal Amaya MD, [address], [place], [address]. tel:[phone] [facility], [address] [address], [place], [id number], [place] tel:[phone] [facility] [place] Crohn's Small/large Intestine 2 Jacky Donaldson. [address] [facility], [address], [place], [place], [id number], [place]. tel:[phone] Referring Provider: Harshal Amaya MD, [address], [place], [address]. tel:[phone] Offic/outpt E&m Estab Mod-hi 2 [facility], [address] [address], [place], [id number], [place] tel:[phone] [facility] Crohns (chief complaint) Crohn's Ileitis 2 No Information Referring Provider: Karl Ma MD F, [address], [place], [address]. tel:[phone] [facility], [address] [address], [place], [id number], [place] tel:[phone] [facility] [place] Crohn's Small/large Intestine 9 No Information Referring Provider: Harshal Amaya MD, [address], [place], [address]. tel:[phone] [facility], [address] [address], [place], [id number], [place] tel:[phone] [facility] [place] Cro[facility]'s Small/large Intestine 2200 9 No Information Referring Provider: Harshal Amaya MD, [address], [place], [address]. tel:[phone] [facility], [address] [address], [place], [id number], [place] tel:[phone] [facility] [place] [facility] Small/large Intestine Jair-2 1-200 9 No Information Referring Provider: Harshal Amaya MD, [address], [place], [address]. tel:[phone] Offic/outpt E&m Estab Mod-hi 2 [facility], [address] [address], [place], [id number], [place] tel:[phone] [facility] Crohn's Small/large Intestine 200 9 No Information Referring Provider: Hrashal Amaya MD, [address], [place], [address]. tel:[phone] [facility], [address] [address], [place], [id number], [place] tel:[phone] [facility] [place] Crohn's Ileitis 9 No Information Referring Provider: Harshal Amaya MD, [address], [place], [address]. tel:[phone] [facility], [address] [address], [place], [id number], [place] tel:[phone] [facility] [place] Crohn's Ileitis 9 No Information Referring Provider: Harshal Amaya MD, [address], [place], [address]. tel:[phone] Offic/outpt E&m Estab Mod-hi 2 [facility], [address] [address], [place], [id number], [place] tel:[phone] [facility] Crohns (chief complaint) Crohn's Small/large IntestineCrohn' s Small/large Intestine 9 Cassie Flood. [address] [facility], [facility] [address], [place], [place], [id number], [place]. tel:[phone] Referring Provider: Aleena Infante, [address] [facility] [address], [place], [address] . tel:[phone] [facility], [address] [address], [place], [id number], [place] tel:[phone] [facility] [place] [facility]hn's Small/large Intestine Dec- 6-200 8 No Information Referring Provider: Harshal Amaya MD, [address], [place], [address]. tel:[phone] [facility], [address] [address], [place], [id number], [place] tel:[phone] [facility] [place] Cro[facility]'s Small/large Intestine Oct-0 7-200 8 No Information Referring Provider: Harshal Amaya MD, [address], [place], [address]. tel:[phone] [facility], [address] [address], [place], [address], [place] tel:[phone] [facility] [place] Crohn's Small/large Intestine Armando- 6200 8 No Information Referring Provider: Harshal Amaya MD, [address], [place], [address]. tel:[phone] [facility], [address] [address], [place], [id number], [place] tel:[phone] [facility] [place] Crohn's Small/large Intestine Nov-2 1200 8 No Information Referring Provider: Harshal Amaya MD, [address], [place], [address]. tel:[phone] [facility], [address] [address], [place], [address], [place] tel:[phone] [facility] [place] Crohn's Small/large Intestine Fe- 9-200 8 No Information Referring Provider: Harshal Amaya MD, [address], [place], [address]. tel:[phone] Offic/outpt E&m Estab Low-mod [facility], [address] [address], [place], [address], [place] tel:[phone] [facility] Crohn's Small/large Intestine Feb- 5-200 8 Cassie Flood. [address] [facility], [facility] [address], [place], [place], [id number], [place]. tel:[phone] Referring Provider: Listed Not. [facility], [address] [address], [place], [id number], [place] tel:[phone] [facility] [place] Crohn's Colitis 3200 7 No Information Referring Provider: Harshal Amaya MD, [address], [place], [address]. tel:[phone] [facility], [address] [address], [place], [address], [place] tel:[phone] [facility] [place] Crohn's Colitis 8200 7 No Information Referring Provider: Harshal Amaya MD, [address], [place], [address]. tel:[phone] Offic/outpt E&m Estab Low-mod [facility], [address] [address], [place], [id number], [place] tel:[phone] [facility] Crohn's Colitis 7 Cassie Flood. [address] [place] [address], [facility] [address], [place], [place], [id number], [place]. tel:[phone] Referring Provider: Aleena Infante, [address] [facility] [address], [place], [address] . tel:[phone] [facility], [address] [address], [place], [address], [place] tel:[phone] [facility] [place] Crohn's Small/large Intestine 9200 7 No Information Referring Provider: Harshal Amaya MD, [address], [place], [address]. tel:[phone] [facility], [address] [address], [place], [id number], [place] tel:[phone] [facility] [place] Crohn's Small/large Intestine 3200 7 Naty Griffin. [address] [facility], [address], [place], [place], [id number], [place]. tel:[phone] Referring Provider: Harshal Amaya MD, [address], [place], [address]. tel:[phone] Offic/outpt E&m Estab Low-mod [facility], [address] [address], [place], [address], [place] tel:[phone] [facility] Crohn's Small/large Intestine Nov- 1200 7 Cassie Flood. [address] [facility], [facility] [address], [place], [place], [id number], [place]. tel:[phone] Referring Provider: Aleena Infante, [address] [facility] [address], [place], [address] . tel:[phone] [facility], [address] [address], [place], [address], [place] tel:[phone] [facility] [place] Crohn's Colitis 7 Cassie Flood. [address] [facility], [facility] [address], [place], [place], [address], [place]. tel:[phone] Referring Provider: Harshal Amaya MD, [address], [place], [address]. tel:[phone] [facility], [address] [address], [place], [address], [place] tel:[phone] [facility] Crohn's Colitis 5200 6 No Information Referring Provider: Harshal Amaya MD, [address], [place], [address]. tel:[phone] Offic/outpt E&m Estab Low-mod [facility], [address] [address], [place], [id number], [place] tel:[phone] [facility] Crohn's Colitis 0200 6 Cassie Flood. [address] [facility], [address], [place], [place], [id number], [place]. tel:[phone] Referring Provider: Harshal Amaya MD, [address], [place], [address]. tel:[phone] [facility], [address] [address], [place], [id number], [place] tel:[phone] [facility] [place] Crohn's Iletis Feb-2 6-200 6 No Information Offic/outpt E m Estab Low [facility], [address] [address], [place], [address], [place] tel:[phone] [facility] Crohn's ileitis 9-200 6 Cassie Flood. [address] [facility], [address], [place], [place], [id number], [place]. tel:[phone] Offic/outpt E m Estab Mod [facility], [address] [address], [place], [address], [place] tel:[phone] [facility] Crohn's ileitis 0-200 6 No Information Offic Cons New/estab Mod- [facility], [address] [address], [facility] [place], [address], [place] tel:[phone] [facility] Crohn's ileitis 5-200 6 No Information Referring Provider: Karl Ma MD F, [address], [place], [address]. tel:[phone] Family History Family Member Type Diagnosis Age At Onset Brother Problem (finding) Alive and well Mother Problem (finding) Cancer, brain Father Problem (finding) Alive and well Sister Problem (finding) Alive and well Immunizations Vaccine Date Status Comments SARS-COV-2 (COVID-19) vaccin e, mRNA, spike protein, LNP, preservative free, 30 mcg/0.3mL dose, tash-sucrose formulation administered Note: [facility] bi-direct ional interface ; Source: Other Registry Pneumovax administered Note: [facility] bi-d irectional interface ; Source: Other Registry Pneumo (2 yrs or older)(PPV) administered Source: New Immunization Record SARS-COV-2 (COVID-19) vaccin e, mRNA, spike protein, LNP, preservative free, 30 mcg/0.3mL dose administered Note: [facility] bi-direct ional interface ; Source: Other Registry SARS-COV-2 (COVID-19) vaccin e, mRNA, spike protein, LNP, preservative free, 30 mcg/0.3mL dose administered Note: [facility] bi-direct ional interface ; Source: Other Registry Afluria Qd administered Note: [facility] bi-directional interface ; Source: Other Registry Afluria Qd administered Note: [facility] bi-directional interface ; Source: Other Registry Havrix administered Note: [facility] bi-d irectional interface ; Source: Other Registry Fluzone Quad 6mo or older administered Note: [facility] bi-direct ional interface ; Source: Other Registry Hep A (adult) administered Source: New Im munization Record Influenza, injectable, quadrivalent, preservative free, 3 yrs or older administered Source: New Immuniz ation Record Havrix administered Note: [facility] bi-d irectional interface ; Source: Other Registry Hep A (adult) administered Source: New Im munization Record Influenza virus vaccine, injectable, quadrivalent, split virus, preservative free, 3 years or older Fluarix Quad [id number] administered Source: New Immuniza tion Record Pneumococcal conjugate PCV 13 administere d Source: New Immunization Record Pneumo (2 yrs or older)(PPV) administered Source: New Immunization Record Flu (split) (3 yrs or older) administered Note: Invalid documented admin date was //2012. ; Source: Other Provider Hep A (adult) pending Source: New Im munization Record Payers Payer name Insurance type Covered green party ID Authoriza timelia(s) Ucbharath HANDY CI [id number] U[employer] [place] CI [id number] [employer] CR MA CI [id number] Social History Type Description Quantity Date Captured Comments Alcohol Use Details Unknown Caffeine Use Details Unknown Tobacco Use Status No Information Smoking Status No Information Sex Male Chief Complaint And Reason For Visit No Information Reason For Referral Reason For Referral No Information Plan Of Treatment Date Type Action Status Goal Hep A Vaccine (2nd) due Goal Colonoscopy. Due on 023 due Goal Hep A Vaccine (1st) due Goal Prevnar 20. Due on due Goal Tdap. Due on due Goal DEXA Bone Density Study. Due on due Goal Dermatology - Skin Screening . Due on due Goal Hep B Vaccine (1st) due Goal Smoking status. Due on due Goal Influenza. Due on due Goal Hep B Vaccine (2nd) due Goal Vitamin D, 25-Hydroxy. Due o n due Goal Dermatology - Skin Screening . Due on due Goal Hep A Vaccine (1st) due Goal Tdap. Due on due Goal Smoking status. Due on due Goal Hep B Vaccine (1st) due Goal Hep A Vaccine (2nd) due Goal Influenza. Due on due Goal DEXA Bone Density Study. Due on due Goal Prevnar 20. Due on due Goal Vitamin D, 25-Hydroxy. Due o n due Goal Colonoscopy. Due on due Goal Hep B Vaccine (2nd) due Goal Hep A Vaccine (1st) due Goal Smoking status. Due on due Goal Hep B Vaccine (1st) due Goal Prevnar 20. Due on due Goal Hep A Vaccine (2nd) due Goal Hep B Vaccine (2nd) due Goal DEXA Bone Density Study. Due on due Goal Tdap. Due on due Goal Colonoscopy. Due on due Goal Dermatology - Skin Screening . Due on due Goal Vitamin D, 25-Hydroxy. Due o n due Goal Influenza. Due on due Goal Colonoscopy. Due on due Goal Vitamin D, 25-Hydroxy. Due o n due Goal Hep A Vaccine (1st) due Goal Prevnar 20. Due on due Goal Hep B Vaccine (2nd) due Goal Dermatology - Skin Screening . Due on due Goal DEXA Bone Density Study. Due on due Goal Hep A Vaccine (2nd) due Goal Tdap. Due on due Goal Hep B Vaccine (1st) due Goal Smoking status. Due on due Goal Influenza. Due on due Goal Colonoscopy. Due on due Goal Smoking status. Due on due Goal Hep A Vaccine (1st) due Goal Tdap. Due on due Goal DEXA Bone Density Study. Due on due Goal Prevnar 20. Due on due Goal Hep A Vaccine (2nd) due Goal Hep B Vaccine (1st) due Goal Dermatology - Skin Screening . Due on due Goal Hep B Vaccine (2nd) due Goal Vitamin D, 25-Hydroxy. Due o n due Goal Influenza. Due on due Goal Colonoscopy. Due on due Goal Smoking status. Due on due Goal DEXA Bone Density Study. Due on due Goal Hep B Vaccine (2nd) due Goal Influenza. Due on due Goal Hep A Vaccine (1st) due Goal Tdap. Due on due Goal Prevnar 20. Due on due Goal Hep A Vaccine (2nd) due Goal Hep B Vaccine (1st) due Goal Vitamin D, 25-Hydroxy. Due o n due Goal Dermatology - Skin Screening . Due on due Goal Colonoscopy. Due on due Goal Vitamin D, 25-Hydroxy. Due o n due Goal Tdap. Due on due Goal Hep B Vaccine (2nd) due Goal DEXA Bone Density Study. Due on due Goal Hep A Vaccine (2nd) due Goal Hep B Vaccine (1st) due Goal Prevnar 20. Due on due Goal Influenza. Due on due Goal Hep A Vaccine (1st) due Goal Smoking status. Due on due Goal Dermatology - Skin Screening . Due on due Goal Colonoscopy. Due on due Goal Dermatology - Skin Screening . Due on due Goal Hep A Vaccine (2nd) due Goal Prevnar 20. Due on due Goal DEXA Bone Density Study. Due on due Goal Tdap. Due on due Goal Hep B Vaccine (2nd) due Goal Hep B Vaccine (1st) due Goal Hep A Vaccine (1st) due Goal Influenza. Due on due Goal Smoking status. Due on due Goal Vitamin D, 25-Hydroxy. Due o n due Goal Prevnar 20. Due on due Goal Hep B Vaccine (2nd) due Goal DEXA Bone Density Study. Due on due Goal Dermatology - Skin Screening . Due on due Goal Hep B Vaccine (1st) due Goal Hep A Vaccine (2nd) due Goal Influenza. Due on due Goal Smoking status. Due on due Goal Colonoscopy. Due on due Goal Vitamin D, 25-Hydroxy. Due o n due Goal Hep A Vaccine (1st) due Goal Tdap. Due on due Goal Hep A Vaccine (2nd) due Goal Hep B Vaccine (1st) due Goal Dermatology - Skin Screening . Due on due Goal Influenza. Due on due Goal Tdap. Due on due Goal Prevnar 20. Due on due Goal DEXA Bone Density Study. Due on due Goal Hep B Vaccine (2nd) due Goal Colonoscopy. Due on due Goal Smoking status. Due on due Goal Hep A Vaccine (1st) due Goal Vitamin D, 25-Hydroxy. Due o n due Goal Hep B Vaccine (1st) due Goal Hep B Vaccine (2nd) due Goal Colonoscopy. Due on due Goal Smoking status. Due on due Goal Vitamin D, 25-Hydroxy. Due o n due Goal Hep A Vaccine (1st) due Goal DEXA Bone Density Study. Due on due Goal Hep A Vaccine (2nd) due Goal Prevnar 20. Due on due Goal Tdap. Due on due Goal Influenza. Due on due Goal Dermatology - Skin Screening . Due on due Goal Hep B Vaccine (2nd) due Goal Smoking status. Due on due Goal Colonoscopy. Due on due Goal Tdap. Due on due Goal Hep A Vaccine (1st) due Goal Dermatology - Skin Screening . Due on due Goal Hep A Vaccine (2nd) due Goal Prevnar 20. Due on due Goal Hep B Vaccine (1st) due Goal Vitamin D, 25-Hydroxy. Due o n due Goal Influenza. Due on due Goal DEXA Bone Density Study. Due on due Goal Dermatology - Skin Screening . Due on due Goal Vitamin D, 25-Hydroxy. Due o n due Goal Colonoscopy. Due on due Goal Tdap. Due on due Goal Prevnar 20. Due on due Goal Influenza. Due on due Goal Hep A Vaccine (1st) due Goal DEXA Bone Density Study. Due on due Goal Hep B Vaccine (1st) due Goal Hep B Vaccine (2nd) due Goal Hep A Vaccine (2nd) due Goal Smoking status. Due on due Goal DEXA Bone Density Study. Due on due Goal Smoking status. Due on due Goal Vitamin D, 25-Hydroxy. Due o n due Goal Tdap. Due on due Goal Dermatology - Skin Screening . Due on due Goal Hep B Vaccine (1st) due Goal Hep A Vaccine (2nd) due Goal Hep B Vaccine (2nd) due Goal Influenza. Due on due Goal Prevnar 20. Due on due Goal Hep A Vaccine (1st) due Goal Colonoscopy. Due on due Goal Hep B Vaccine (1st) due Goal Hep B Vaccine (2nd) due Goal Colonoscopy. Due on due Goal Smoking status. Due on due Goal Vitamin D, 25-Hydroxy. Due o n due Goal DEXA Bone Density Study. Due on due Goal Tdap. Due on due Goal Hep A Vaccine (1st) due Goal Dermatology - Skin Screening . Due on due Goal Prevnar 20. Due on due Goal Hep A Vaccine (2nd) due Goal Influenza. Due on due Goal Tdap. Due on due Goal Hep B Vaccine (2nd) due Goal Hep B Vaccine (1st) due Goal Dermatology - Skin Screening . Due on due Goal Hep A Vaccine (2nd) due Goal Colonoscopy. Due on due Goal DEXA Bone Density Study. Due on due Goal Influenza. Due on due Goal Prevnar 20. Due on due Goal Vitamin D, 25-Hydroxy. Due o n due Goal Hep A Vaccine (1st) due Goal Smoking status. Due on due Goal Vitamin D, 25-Hydroxy. Due o n due Goal Prevnar 20. Due on due Goal Hep A Vaccine (2nd) due Goal Influenza. Due on due Goal Tdap. Due on due Goal DEXA Bone Density Study. Due on due Goal Dermatology - Skin Screening . Due on due Goal Smoking status. Due on due Goal Hep B Vaccine (1st) due Goal Hep A Vaccine (1st) due Goal Colonoscopy. Due on 023 due Goal Hep B Vaccine (2nd) due Goal Colonoscopy. Due on 023 due Goal Hep B Vaccine (2nd) due Goal Smoking status. Due on due Goal Tdap. Due on due Goal Vitamin D, 25-Hydroxy. Due o n due Goal Hep A Vaccine (2nd) due Goal Hep A Vaccine (1st) due Goal Hep B Vaccine (1st) due Goal DEXA Bone Density Study. Due on due Goal Dermatology - Skin Screening . Due on due Goal Influenza. Due on due Goal Prevnar 20. Due on due Goal Tdap. Due on due Goal Hep B Vaccine (2nd) due Goal Dermatology - Skin Screening . Due on due Goal Influenza. Due on due Goal Colonoscopy. Due on due Goal Prevnar 20. Due on due Goal DEXA Bone Density Study. Due on due Goal Smoking status. Due on due Goal Hep B Vaccine (1st) due Goal Hep A Vaccine (1st) due Goal Hep A Vaccine (2nd) due Goal DEXA Bone Density Study. Due on due Goal Vitamin D, 25-Hydroxy. Due o n due Goal Dermatology - Skin Screening . Due on due Goal Influenza. Due on due Goal Tdap. Due on due Goal Smoking status. Due on due Goal Hep B Vaccine (2nd) due Goal Colonoscopy. Due on due Goal Prevnar 20. Due on due Goal Hep A Vaccine (2nd) due Goal Hep A Vaccine (1st) due Goal Hep B Vaccine (1st) due Goal Smoking status. Due on due Goal DEXA Bone Density Study. Due on due Goal Hep B Vaccine (1st) due Goal Prevnar 20. Due on due Goal Hep B Vaccine (2nd) due Goal Influenza. Due on due Goal Colonoscopy. Due on due Goal Hep A Vaccine (2nd) due Goal Tdap. Due on due Goal Dermatology - Skin Screening . Due on due Goal Hep A Vaccine (1st) due Goal Colonoscopy. Due on due Goal Dermatology - Skin Screening . Due on due Goal Hep B Vaccine (2nd) due Goal Tdap. Due on due Goal Vitamin D, 25-Hydroxy. Due o n due Goal Hep A Vaccine (1st) due Goal Prevnar 20. Due on due Goal Influenza. Due on due Goal DEXA Bone Density Study. Due on due Goal Hep A Vaccine (2nd) due Goal Hep B Vaccine (1st) due Goal Smoking status. Due on due Goal Hep A Vaccine (2nd) due Goal Colonoscopy. Due on due Goal Smoking status. Due on due Goal Hep A Vaccine (1st) due Goal Prevnar 20. Due on due Goal Hep B Vaccine (1st) due Goal Hep B Vaccine (2nd) due Goal Dermatology - Skin Screening . Due on due Goal Vitamin D, 25-Hydroxy. Due o n due Goal DEXA Bone Density Study. Due on due Goal Influenza. Due on due Goal Tdap. Due on due Goal Prevnar 20. Due on 24 due Goal Colonoscopy. Due on 023 due Goal Hep A Vaccine (1st) due Goal Hep B Vaccine (1st) due Goal Smoking status. Due on due Goal Hep B Vaccine (2nd) due Goal Vitamin D, 25-Hydroxy. Due o n due Goal Tdap. Due on due Goal DEXA Bone Density Study. Due on due Goal Hep A Vaccine (2nd) due Goal Dermatology - Skin Screening . Due on due Goal Influenza. Due on due Goal Lifestyle education regardin g diet completed Goal Lifestyle education regardin g diet completed Goal Lifestyle education regardin g diet completed Goal Lifestyle education regardin g diet completed Referral Ordered: referred to Urology stable penile cyst on imaging ordered Referral Ordered: referred to Dermatology annual skin check while on remicade ordered Referral Ordered: referred to Otolaryngology left ear plugged up ordered Referral Ordered: referred to Urology chronic penile cyst on imaging ordered Referral Ordered: MRI Pelvis WITHOUT And WITH Contrast Appointment date/timeframe: 06/08/2017 ordered Referral Ordered: referred to Dermatology lip lesion and skin check for moles, etc ordered Referral Ordered: referred to Colon and Rectal Surgery eval of perianal crohns disease ordered Referral Ordered: MRI Enterography WITHOUT And WITH Contrast Appointment date/timeframe: 09/25/2015 ordered Referral Ordered: referred to Colon and Rectal Surgery h/o crohn's disease, eval perianal area ordered Referral Ordered: Administer Remicade 5mg/kg every eight weeks, infuse by IV route ordered Referral Ordered: follow-up visit with PA/[employer]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[employer] PROFESSOR 6 Months Appointment date/timeframe: 6 Months ordered Referral Ordered: referred to Colon and Rectal Surgery perianal pain, crohn's disease ordered Referral Ordered: follow-up visit with Peyton Guerrero MD 6 Months Appointment date/timeframe: 6 Months ordered Referral Ordered: referred to Colon and Rectal Surgery for eval of perianal disease ordered Referral Ordered: Bone Denity, DEXA Scan Appointment date/timeframe: -today ordered Unknown Immunization Hep A (adult) ordered History Of Present Illness Encounter Date Complaint History Of Prese nt Illness GI Symptoms or Concerns Patient is a 39-year-old male who had in-person visit today for followup of perianal Crohn's disease with fistula initially diagnosed in 2003. Patient was last seen in GI clinic in March 2024. He has never had any small bowel or large intestine inflammation. A colonoscopy in December 2021 and did not reveal any inflammation in the ileum or the colon, and random colon biopsies were normal. The patient reports he has overall been doing well. He denies any perianal pain or swelling. He denies any significant GI symptoms at this time. He is on Remicade 5 mg/kg IV every 8 weeks with premedications. He follows with a chief airport guide on a regular basis. He has had multiple abdominal imaging exams that have never shown any active bowel inflammation.I reviewed his labs from February 2025 including a CBC and LFTs and QuantiFERON that were normal/negative. GI Symptoms or Concerns The artemio ent is a 38-year-old male who had in-person visit today for followup of perianal Crohn's disease with fistula initially diagnosed in 2003. He has never had any small bowel or large intestine inflammation. His last colonoscopy was in December 2021 and did not reveal any inflammation in the ileum or the colon, and random colon biopsies were normal. The patient reports he has overall been doing well. He denies any perianal pain or swelling. He denies any diarrhea or abdominal pain or rectal bleeding or any other GI symptoms. He is on Remicade 5 mg/kg IV every 8 weeks with premedications. He follows with a chief airport guide on a regular basis. I reviewed his CBC and LFTs from March 17 and these were within acceptable limits. He has had multiple abdominal imaging exams that have never shown any active bowel inflammation. GI Symptoms or Concerns This is a 37-year-old male with perianal Crohn's disease with fistula initially diagnosed in 2003 presenting in follow-up. The patient was last seen in October of 2022. Patient is currently managed on Remicade 5 milligrams/kilogram every 8 weeks with premedications. He is doing quite well on the medicine and denies any recent flares. A flare for him would be development of a perirectal abscess with pain and drainage. He estimates this last occurred in early 2022 when his Remicade was delayed due to COVID infection. He notes there was a perianal abscess and an abrupt tapering and draining on its own. He did have follow up with Colorectal surgery who determined no treatment was needed at that time. The patient has never had any small bowel or large intestine inflammation. Last colonoscopy was December of 2021 and did not show any inflammation in the ileum nor in the colon. Random colon biopsies were unremarkable. The patient does follow with a chief airport guide. He notes aline GI Symptoms or Concerns The artemio ent is a 36-year-old male who had in-person visit today for followup of perianal Crohn's disease with fistula initially diagnosed in 2003. He has never had any small bowel or large intestine inflammation. His last colonoscopy was in December 2021 and did not reveal any inflammation in the ileum or the colon, and random colon biopsies were normal. The patient reports he has overall been doing well. He reports he had to delay his Remicade infusion by a week or two due to COVID about a month or month and half ago. He reports around that time, he developed what he thought was an enlarging perianal abscess. He reports this ended up rupturing and draining on its own. He still went to Colon and Rectal Surgery afterwards and they examined his perianal area and determined that no further treatment was needed. He reports he has felt well since then. He denies any diarrhea or abdominal pain or rectal bleeding or any other GI symptoms. He is on Remicade 5 mg/kg IV every 8 weeks with p GI Symptoms or Concerns The artemio ent is a 36-year-old male who had in-person visit today for followup of perianal Crohn's disease with fistula diagnosed initially in 2003. He has had no mucosal Crohn's disease previously. He had a recent colonoscopy on December 25 that did not reveal any evidence of small bowel or colonic Crohn's disease and colon biopsies were negative. He did have some external hemorrhoids. He had an MR enterography in March 2020 that did not reveal any small bowel or colonic Crohn's disease and stable perianal disease. We reviewed his CBC and LFTs from November 19 that were normal. The patient reports he is doing well and denies any GI symptoms. He was seen by Dermatology recently for a scaly rash on his face and is prescribed lotion that resolves the rash completely. He also had a full skin check that did not reveal any suspicious lesions. GI Symptoms or Concerns The artemio mora is a 35-year-old male who had an in-person visit today for followup of perianal Crohn's disease with fistula diagnosed in 2003. The patient has not had any mucosal evidence of Crohn's disease. His last colonoscopy was in 2013 that was normal. His last MR enterography was in March 2020 and did not show any evidence of active bowel inflammation, but just showed a chronic perianal fistula. The patient reports he is overall doing well. He occasionally has some discharge from the perianal area, but this does not occur very often. He does report that he has had problems with a rash previously on his elbows and now on his the side of his face bilaterally. He is seeing a chief airport guide, will be following up with him again next month. They told him I think he has acne. He is using clindamycin cream as needed. The patient denies other GI symptoms at this time. GI Symptoms or Concerns Bethany orlando is a pleasant 35-year-old male who is evaluated today via telephone visit for routine follow-up of Crohn's disease. He consents to a telephone visit and opiates is participating. Patient was last seen by 10 minutes in June 2020. He has perianal Crohn's disease that was diagnosed in 2003, with some focal ileitis in 2004. He has been on Remicade 5 mg/kg every 8 weeks with premeds and overall has been doing very well. He has had a persistent perianal fistula with linear enhancement along the left gluteal fold which has been present for number of years. Today patient reports no symptoms or concerns. There is no abdominal pain, diarrhea, rectal bleeding, or unintended weight loss. Patient is having 1-2 bowel movements daily. There are occasional minor flares of rectal symptoms, which he describes as discomfort and diarrhea, but this is very infrequent. Most recent labs from May 2021 including CBC and LFTs were normal. Last colonoscopy was in GI Symptoms or Concerns The artemio mora is a very pleasant young gentleman whom we have followed [facility] for Crohn's disease of the perianal area. The patient was here for his Remicade appointment and mentioned that he thought he had a concerning lump near his rectum and wanted further evaluation in clinic.The patient was diagnosed with perianal Crohn's disease in 2003 and some focal ileitis in 2004, and he has been on Remicade 5 mg/kg every 8 weeks with pre-meds and overall, doing very well. He has had a persistent perianal fistula with linear enhancement along the left gluteal fold, has been present for a number of years.He presents today reporting that he has had rectal burning, itching and a new lump on his rectum with some clear drainage and he is quite concerned about a possible recurrence of his fistula or a new finding. He has not had any fever or chills. He denies any pus or bloody drainage. He describes a burning all around his rectum. He denies any abdominal pain or GI Symptoms or Concerns The artemio mora is a 34-year-old male who had a telephone visit performed today for followup of Crohn's disease. The patient was last seen in GI Clinic in November 2018. He was diagnosed with perianal Crohn's disease in 2003. He had some nonspecific focal active ileitis in 2004. He has been on Remicade 5 mg/kg IV every 8 weeks with premeds and overall doing well. The patient denies any significant GI symptoms at this time. Denies any abdominal pain or rectal bleeding or diarrhea or rectal urgency or any perianal pain or swelling or discharge. The patient's last MR enterography was in April 2018. At his last GI clinic visit, we ordered a dermatology appointment for an annual skin check as well as a urology appointment to follow up on a stable penile cyst, but these have not yet been done. The patient also was referred to ENT for some intermittent right ear plugging, but reports that this is overall improving, does not occur very often. GI Symptoms or Concerns Patient is a 33-year-old male, who is here for followup of perianal Crohn's disease diagnosed in 2003. Patient was last seen in GI Clinic in April of 2018. He also has history of nonspecific focal active ileitis in 2004. He has been on Remicade with pre-meds and doing quite well. He denies any GI symptoms at this time. He reports 1 to 2 formed bowel movements per day and denies any abdominal pain, diarrhea, rectal bleeding, or other GI symptoms. He does report that he has had some cold symptoms and has laid his Remicade by a couple of weeks. He does report that he still has some left ear plugging, but otherwise is feeling better. He was seen in urgent care for these symptoms and was given a decongestant. He has not yet seen a chief airport guide for skin check. He did follow up with Colon and Rectal Surgery regarding an MRI of the pelvis, which showed distention of his left perianal fistula tract. After evaluation by the colorectal surgeon, Dr. Sumner, the patient was told to GI Symptoms or Concerns The symp toms began 14 years ago. The symptoms are reported as being mild. The symptoms occur randomly. Aggravating factors include nothing. Relieving factors include remicade. He states the symptoms are chronic and are stable. Patient is a 32-year-old male who is here for followup of Crohn's disease. Patient was diagnosed with perianal Crohn's disease in 2003. He did have some nonspecific focal active ileitis on a colonoscopy in 2004. His ileum has appeared normal on subsequent colonoscopies. He has been on Remicade with premedications and reports he is overall doing quite well. He reports his seton was removed by the colorectal surgeon approximately 7 months ago. He reports he has 1 to 2 formed bowel movements per day and denies any rectal bleeding or abdominal pain. Reports that the prior lesion on his upper lip has completely resolved and he never saw the chief airport guide. He had an MRI of the pelvis as well as an MR enterography in May 2017. No bowel inflammation was se GI Symptoms or Concerns The symp toms began 13 years ago. The symptoms are reported as being mild. The symptoms occur randomly. The location is perianal area. Aggravating factors include nothing. Relieving factors include remicade. He states the symptoms are chronic and are controlled. The patient is a 31-year-old male who is here for followup of perianal Crohn's disease. The patient was last seen in GI Clinic in September 2015. He was diagnosed with perianal Crohn's disease in 2003. He has been on Remicade and has overall been doing well. He reports occasional vague perianal discomfort that lasts a day and then resolves on its own. This has not occurred in a while. The patient reports he typically has one to two formed bowel movements per day and denies any abdominal pain or rectal bleeding or weight loss or any other GI symptoms. He had an MR enterography in September 2015 and it did not reveal any evidence of active bowel inflammation. I advised the patient to followup with a colorectal surgeon in GI Symptoms or Concerns The symp toms began 12 years ago. The symptoms are reported as being mild. The symptoms occur randomly. The location is perianal area. Aggravating factors include nothing. Relieving factors include remicade. He states the symptoms are chronic and are stable. Patient is a 29-year-old male who is here for followup of perianal Crohn's disease diagnosed in 2003. Patient was last seen in GI clinic in October 2014. At that time, patient was having some perianal pain. Pelvic MRI at that time did not reveal any evidence of abscess. Patient felt better and did not follow up with colorectal surgery as recommended at that time. Patient reports he overall has been feeling quite well. He reports some occasional mild perianal irritation with certain foods, but overall reports he has been doing well. He denies any significant diarrhea or abdominal pain or rectal bleeding or weight loss. Patient has continued to take his Remicade. The patient denies any other GI symptoms at this time. GI Symptoms or Concerns The symp toms began 11 years ago. The symptoms are reported as being mild. The symptoms occur randomly. The location is perianal area. Aggravating factors include nothing. Relieving factors include remicade. He states the symptoms are chronic and are stable. The patient is a 28-year-old male who is here for followup of perianal Crohn's disease. The patient was last seen in GI clinic on 05/05/2014. The patient was diagnosed with perianal Crohn disease in 2003. He has been on Remicade and has overall been doing quite well. The patient reports that approximately two weeks ago he developed some increased perianal pain around the seton site. He reports this pain lasted for approximately two or three days and has since resolved. He reports he feels back to baseline at this time. He denies any diarrhea or abdominal pain or rectal bleeding or weight loss or nausea or vomiting. The patient has not yet seen Colorectal Surgery for a checkup of his perianal area despite my recommendation GI Symptoms or Concerns The symp toms began 10 years ago. The symptoms are reported as being mild. The symptoms occur randomly. He states the symptoms are chronic and are controlled. The patient is a 28-year-old male with history of perianal Crohn's disease who is here for followup. The patient was last seen in the GI Clinic on February 07, 2014. He was diagnosed with perianal Crohn's disease in 2003. A colonoscopy in 2004 revealed some mild nonspecific ileitis. The patient had a recent colonoscopy on March 28 that revealed some perianal Crohn's disease, but otherwise normal appearing terminal ileum and colon with negative biopsies. The patient was having some perineal symptoms at his last office visit, but these seemed to have improved. He denies any perianal pain or drainage. The patient does report that he had some URI symptoms and fever over the past 7 to 10 days and has delayed his Remicade infusion until next week. He reports he is already feeling better. The patient denies any significant GI sym GI Symptoms or Concerns The symp toms began 1 week ago. The symptoms are reported as being mild. The symptoms occur randomly. The location is perianal area. He states the symptoms are chronic. GI Symptoms or Concerns The artemio ent is a 28-year-old male, who is here for followup of perianal Crohn's disease. The patient was last seen in the GI clinic in April 2012. The patient was diagnosed with perianal fistulas starting in May 2004. He had a colonoscopy in 2004 that revealed some nonspecific ileitis on biopsies. He is also had several exams under anesthesia for abscess drainage and his chronic fistulas. The patient had been treating with Imuran in 2005 which he stopped after a few months and was also started on Remicade in 2005 as well, but stopped the Remicade in 2008. He was eventually restarted on Remicade in September 2011 and has been on this medication ever since. He is premedicated prior to his Remicade infusions. His last colonoscopy was in May 2012 and revealed a seton in place but was otherwise normal with normal colon biopsies. The patient has not been seen by any GI physician since April 2012. He reports he has been troubling significantly for his job. The patient Functional Status Date Functional Assessmen t No Information Instructions Date Instruction Additional Infor luisito -Vitamin D level, vi tamin B12 level at next Remicade infusion-Continue Remicade 5 mg/kg IV every 8 weeks with premeds-Calcium and vitamin D-Avoid NSAIDs-Patient will schedule Shingrix vaccinations soon-Repeat colonoscopy with TI evaluation at age 44-Dermatology visits every 1-2 years for skin checks while on wvayjpjl-Aslsum-vo in 1 year Related to Crohn's disease of perianal region with other complication -Draw vitamin B12 an d vitamin D at May 12 remicade infusion-Continue Remicade 5 mg/kg IV every 8 weeks with premeds-Calcium and vitamin D-Avoid NSAIDs-Patient will schedule Shingrix vaccinations soon-Repeat colonoscopy with TI evaluation at age 44-Dermatology visits every 1-2 years for skin checks while on [id number]-[id number]-od in 1 year Related to Crohn's disease of perianal region with other complication Infliximab IV per [facility] protocol Infliximab IV per [facility]erated protocol -Draw quantiferon at 12/23/22 remicade infusion-Continue Remicade 5 mg/kg IV every 8 weeks with premeds-Calcium and vitamin D-Avoid NSAIDs-Repeat colonoscopy with TI evaluation at age 44-Dermatology visits every 1-2 years for skin checks while on sopjjjxc-Lkdvwv-af in 6 months Related to Perianal Crohn's disease, with fistula Infliximab IV per ac celerated protocol -Continue Remicade 5 mg/kg IV every 8 weeks with premeds-Calcium and vitamin D-Avoid NSAIDs-I advised new COVID-19 booster soon-Repeat colonoscopy with TI evaluation at age 44-Dermatology visits every 1-2 years for skin checks while on hqfwmord-Jldrye-bt in 6 months Related to Perianal Crohn's disease, with fistula Hemorrhoids (External) Related t o Crohn's disease of large intestine with fistula -Dermatology appoint ment next month as scheduled for further evaluation and treatment of scaly rash on face Related to Rash -Continue Remicade 5 mg/kg IV every 8 weeks with premeds-Calcium and vitamin D-Avoid NSAIDs-Pneumovax booster today-I advised COVID-19 booster soon-Colonoscopy with TI evaluation and random colon biopsies to check for any evidence of active Crohn's qfdaqgw-Wyeesv-gn in 6 months 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 Infliximab IV per [facility] protocol Infliximab IV per [facility]erated protocol -Continue Remicade 5 mg/kg IV every 8 weeks with premeds-MR enterography to reassess Crohn's disease activity-Calcium and vitamin D-Avoid NSAIDs-Dermatology appointment for yearly skin check while on remicade-Patient will follow-up with his urologist regarding chronic stable penile zomf-Yakssl-fr in 6 months 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 -Continue Remicade w ith premeds-Calcium and vitamin D-Avoid NSAIDs-Dermatology appointment for yearly skin check while on remicade-Patient will follow-up with his urologist regarding chronic stable penile feqz-Eqsxei-aq in 6 months 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 -ENT appointment for evaluation of left ear feeling plugged up Related to Sensation of plugged ear on left side Infliximab IV per celerated protocol -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 Related to Penile cyst -Labs as ordered-Con tinue Remicade with premeds-MRI pelvis to reassess perianal disease after seton removal-Calcium and vitamin D-Avoid DBMTEu-Xnevko-cw in 6 months 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 -Labs as ordered-Con tinue Remicade with premeds-MRE to reassess for any bowel inflammation and MRI pelvis to reassess perianal disease-Colorectal surgery appointment to reassess perianal disease-Flu shot, hepatitis A #2 today-Calcium and vitamin D-Avoid NSAIDs-Dermatology consult for further evaluation of small lesion on upper lip and for annual skin check while on hypizsff-Sjzqrz-me in 6 months Related to Crohn's disease of perianal region, with fistula Remicade IV per protocol. -Labs as ordered-Con tinue Remicade with premeds-MRE to reassess for any bowel inflammation-Colorectal surgery appointment to reassess perianal disease-Fu, prevnar, hepatitis A vaccines-Calcium and vitamin D-Avoid TCZLNf-Ugskyr-wk in 6 months Related to Crohn's disease of perianal region, with fistula Lifestyle education regarding di et Related to Dietary counseling and surveillance -Labs as ordered-Con tinue Remicade-MRI of pelvis-Colorectal surgery appt for evaluation of perianal area-Avoid NSAIDs-Calcium and vitamin D-Follow-up in 6 months Related to Crohn's disease of perianal region Lifestyle education regarding di et Related to Dietary surveillance and counseling MRI Pelvis WITH Contrast Related to Crohn's Colitis MRI Pelvis WITH Contrast -LFTs as per protoco l labs-Continue Remicade -CORS appt for follow-up of perianal disease-Calcium and vitamin D-Avoid NSAIDs-Bone density scan-Flu vaccine when hrpiptmrl-Zassjy-gj in 6 months Related to Perianal Crohn disease Lifestyle education regarding di et Related to Dietary surveillance and counseling Bone Denity, DEXA Scan Colon Cancer Prevention Related to Perianal Crohn disease -Labs as ordered-Con tinue Remicade for now-Colonoscopy with TI and colon biopsies-CORS appt for some induration and tenderness on perianal exam-Pneumovax vaccine-Calcium and vitamin D-Avoid NSAIDs-Bone density amln-Fihign-rm in 3 months Related to Rectal bleeding Lifestyle education regarding di et Related to Dietary surveillance and counseling Colonoscopy Assessments Type Assessment Date No Information Patient Care Teams Name Effective Dates (start - stop) Status Members No Information
--- OUTSIDE RECORDS SUMMARY | 2025-06-22 05:40 | XMS_ITS | Continuity of Care Document ---
Author Organization [facility] Address [address] [address] [place] [address] Phone Care Team Providers Care Director News Name Role Phone Aleena Murillo Unavailable Unavailable [...] 16 Immuniz Admin; 2/> Sing/comb V 16 [id number] Vaccine Immuniz Admin; 2/> Sing/comb V 16 [...] Encounter [facility] ELYSSA HERNANDEZ [address] [address], [place], [address], [place] tel:[phone] [facility] No Information 5 Cassie Flood. [address] [facility], [address], [place], [place], [address], [place]. tel:[phone] Karl Ma MD. tel:[phone] [facility], [address] [address], [place], [id number], [place] tel:[phone] Infusion Chuck Crohn's disease of large intestine without complications 5 George Steiner. [address], [id number], [place]. tel:[phone] Referring Provider: Referral Self, USE FOR SELF REFERRALS. [facility], [address] [address], [place], [address], [place] tel:[phone] [facility] No Information 5 Yolanda Todd. [address], [id number], [place]. tel:[phone] Referring Provider: Referral Self, USE FOR SELF REFERRALS. [facility], [address] [address], [place], [address], [place] tel:[phone] Infusion Chuck Crohn's disease of large intestine without complications 5 Ernie Tamayo. [address], [id number], [place]. tel:[phone] Offic/outpt E&m Estab Low [facility], [address] [address], [place], [address], [place] tel:[phone] [facility] GI Symptoms or Concerns (chief complaint) Crohn's disease of perianal region with other complication 5 Yolanda Todd. [address], [id number], [place]. tel:[phone] Karl Ma MD. tel:[phone] erring Provider: Referral Self, USE FOR SELF REFERRALS. [facility], [address] [address], [place], [address], [place] tel:[phone] Infusion Rosamond Crohn's disease of large intestine without complications 5 Isrrael Olmos. [address] [facility] [place], [place], [address], [place]. tel:[phone] Karl Ma MD. tel:[phone] erring Provider: Referral Self, USE FOR SELF REFERRALS. [facility], [address] [address], [place], [address], [place] tel:[phone] Infusion Rosamond Crohn's disease of large intestine without complications 5 Ernie Tamayo. [address] [facility], [facility] [address], [place], [address], [place]. tel:[phone] [facility], [address] [address], [place], [address], [place] tel:[phone] Infusion Rosamond Crohn's disease of large intestine without complications 5 Candido Sexton. [address], [id number], [place]. tel:[phone] Karl Ma MD. tel:[phone] erring Provider: Referral Self, USE FOR SELF REFERRALS. [facility], [address] [address], [place], [address], [place] tel:[phone] [facility] Crohn's disease of large intestine without complications 5 Yolanda Todd. [address] [facility] [address], [place], [address], [place]. tel:[phone] Referring Provider: Referral Self, USE FOR SELF REFERRALS. [facility], [address] [address], [place], [address], [place] tel:[phone] [facility] Crohn's disease of large intestine without complications 5 Yolanda Todd. [address] [facility] [address], [place], [address], [place]. tel:[phone] Karl Ma MD. tel:[phone] [facility], [address] [address], [place], [address], [place] tel:[phone] Infusion Rosamond Crohn's disease of large intestine without complications 5 Isrrael Olmos. [address] [facility], [address], [id number], [place]. tel:[phone] Ma MD. tel:[phone] erring Provider: Referral Self, USE FOR SELF REFERRALS. [facility], [address] [address], [place], [address], [place] tel:[phone] Infusion Rosamond Crohn's disease of large intestine without complications 5 Yolanda Todd. [address] [place] [address], [id number], [place]. tel:[phone] [facility], [address] [address], [place], [address], [place] tel:[phone] Infusion Rosamond Crohn's disease of large intestine without complications 5 Bipin Elaine. [address] [place] [address], [id number], [place]. tel:[phone] Ma MD. tel:[phone] erring Provider: Referral Self, USE FOR SELF REFERRALS. [facility], [address] [address], [place], [address], [place] tel:[phone] Infusion Rosamond Crohn's disease of large intestine without complications 5 Yolanda Todd. [address] [place] [address], [id number], [place]. tel:[phone] Ma MD. tel:[phone] [facility], [address] [address], [place], [address], [place] tel:[phone] Infusion Rosamond Crohn's disease of large intestine without complications 5 Manolo Garcia. [address] [place] [address], [id number], [place]. tel:[phone] Karl Ma MD. tel:[phone] erring Provider: Referral Self, USE FOR SELF REFERRALS. [facility], [address] [address], [place], [address], [place] tel:[phone] [facility] Crohn's disease of large intestine without complications 5 Yolanda Todd. [address] [place] [address], [id number], [place]. tel:[phone] Referring Provider: Referral Self, USE FOR SELF REFERRALS. [facility], [address] [address], [place], [address], [place] tel:[phone] Infusion Rosamond Crohn's disease of large intestine without complications 5 Yolanda Todd. [address] [place] [address], [id number], [place]. tel:[phone] Karl Ma MD. tel:[phone] [facility], [address] [address], [place], [address], [place] tel:[phone] [facility] Crohn's disease of large intestine without complications 4 Perez Raphael. [address] [place] [address], [id number], [place]. tel:[phone] Karl Ma MD. tel:[phone] erring Provider: Referral Self, USE FOR SELF REFERRALS. [facility], [address] [address], [place], [address], [place] tel:[phone] Infusion Rosamond Crohn's disease of large intestine without complications 4 Yolanda Todd. [address] [place] [address], [place], [address], [place]. tel:[phone] [facility], [address] [address], [place], [address], [place] tel:[phone] Infusion Rosamond Crohn's disease of large intestine without complications Apr- 4 Sabra Herndon. [address], [id number], [place]. tel:[phone] Karl Ma MD. tel:[phone] erring Provider: Referral Self, USE FOR SELF REFERRALS. [facility], [address] [address], [place], [address], [place] tel:[phone] [facility] Crohn's disease of large intestine with other complication Apr- 4 Yolanda Todd. [address] [place] [address], [id number], [place]. tel:[phone] Referring Provider: Referral Self, USE FOR SELF REFERRALS. [facility], [address] [address], [place], [address], [place] tel:[phone] Infusion Rosamond Crohn's disease of large intestine without complications Apr- 4 Yolanda Todd. [address] [place] [address], [id number], [place]. tel:[phone] Offic/outpt E&m Estab Low-mod [facility], [address] [address], [place], [address], [place] tel:[phone] [facility] GI Symptoms or Concerns (chief complaint) Crohn's disease of perianal region with other complication 4 Yolanda Todd. [address] [place] [address], [id number], [place]. tel:[phone] Karl Ma MD. tel:[phone] erring Provider: Referral Self, USE FOR SELF REFERRALS. [facility], [address] [address], [place], [address], [place] tel:[phone] Infusion Bent Crohn's disease of large intestine without complications 4 Alvaro Grayson [address], [id number], [place]. tel:[phone] Ma MD. tel:[phone] erring Provider: Referral Self, USE FOR SELF REFERRALS. [facility], [address] [address], [place], [address], [place] tel:[phone] [facility] Crohn's disease of large intestine without complications 4 Yolanda Todd. [address] [facility] [place], [place], [address], [place]. tel:[phone] Ma MD. tel:[phone] erring Provider: Referral Self, USE FOR SELF REFERRALS. [facility], [address] [address], [place], [address], [place] tel:[phone] Infusion Bent Crohn's disease of large intestine without complications 4 OMorchoe PAC Bee. [address], [id number], [place]. tel:[phone] [facility], [address] [address], [place], [address], [place] tel:[phone] Infusion Chuck Crohn's disease of large intestine without complications 4 Flori Agrawal. [address], [id number], [place]. tel:[phone] Ma MD. tel:[phone] erring Provider: Referral Self, USE FOR SELF REFERRALS. [facility], [address] [address], [place], [address], [place] tel:[phone] Infusion Chuck Crohn's disease of large intestine without complications 4 OMorchoe PAC Bee. [address] [facility] [address], [place], [address], [place]. tel:[phone] [facility], [address] [address], [place], [address], [place] tel:[phone] Infusion Chuck Crohn's disease of large intestine without complications 4 Nando Sales. [address], [id number], [place]. tel:[phone] Karl Ma MD. tel:[phone] erring Provider: Referral Self, USE FOR SELF REFERRALS. [facility], [address] [address], [place], [address], [place] tel:[phone] [facility] Crohn's disease of large intestine without complications 4 Jennifer Gamboa. [address], [id number], [place]. tel:[phone] [facility], [address] [address], [place], [address], [place] tel:[phone] Infusion Bent Crohn's disease of large intestine without complications 4 Axel Portillo. [address], [id number], [place]. tel:[phone] Referring Provider: Referral Self, USE FOR SELF REFERRALS. [facility], [address] [address], [place], [address], [place] tel:[phone] [facility] Crohn's disease of large intestine without complications 4 Yolanda Todd. [address] [facility] [place], [place], [address], [place]. tel:[phone] Karl Ma MD. tel:[phone] erring Provider: Referral Self, USE FOR SELF REFERRALS. [facility], [address] [address], [place], [address], [place] tel:[phone] [facility] Crohn's disease of large intestine without complications 4 Jennifer Gamboa. [address], [id number], [place]. tel:[phone] [facility], [address] [address], [place], [id number], [place] tel:[phone] Infusion Chuck Crohn's disease of large intestine without complications 3 Yolanda Todd. [address] [place] [address], [id number], [place]. tel:[phone] Ma MD. tel:[phone] erring Provider: Referral Self, USE FOR SELF REFERRALS. Offic/outpt E&m Estab Low-mod [facility], [address] [address], [place], [address], [place] tel:[phone] [facility] GI Symptoms or Concerns (chief complaint) Crohn's disease of perianal region with other complication 3 Jennifer Gamboa. [address] [place] [address], [id number], [place]. tel:[phone] Ma MD. tel:[phone] erring Provider: Referral Self, USE FOR SELF REFERRALS. [facility], [address] [address], [place], [address], [place] tel:[phone] [facility] Crohn's disease of large intestine without complications 3 Yolanda Todd. [address] [place] [address], [id number], [place]. tel:[phone] [facility], [address] [address], [place], [address], [place] tel:[phone] Infusion Bent Crohn's disease of large intestine without complications 3 George Steiner. [address] [place] [address], [id number], [place]. tel:[phone] Ma MD. tel:[phone] erring Provider: Referral Self, USE FOR SELF REFERRALS. [facility], [address] [address], [place], [address], [place] tel:[phone] Infusion Chuck Crohn's disease of large intestine without complications 3 Yolanda Todd. [address] [facility] [address], [place], [address], [place]. tel:[phone] [facility], [address] [address], [place], [address], [place] tel:[phone] Infusion Bent Crohn's disease of large intestine without complications 3 Zaire Light. [address] [facility], [address], [id number], [place]. tel:[phone] Referring Provider: Referral Self, USE FOR SELF REFERRALS. [facility], [address] [address], [place], [address], [place] tel:[phone] [facility] Crohn's disease of large intestine without complications 3 Yolanda Todd. [address] [facility] [address], [place], [address], [place]. tel:[phone] Karl Ma MD. tel:[phone] erring Provider: Referral Self, USE FOR SELF REFERRALS. [facility], [address] [address], [place], [address], [place] tel:[phone] [facility] Crohn's disease of large intestine without complications 3 Yolanda Todd. [address] [facility] [address], [place], [address], [place]. tel:[phone] [facility], [address] [address], [place], [address], [place] tel:[phone] Infusion Chuck Crohn's disease of large intestine without complications 3 Alvaro Grayson [address] [facility] [address], [place], [address], [place]. tel:[phone] Karl Ma MD. tel:[phone] erring Provider: Referral Self, USE FOR SELF REFERRALS. [facility], [address] [address], [place], [address], [place] tel:[phone] [facility] Crohn's disease of large intestine without complications Jan- 3 Yolanda Todd. [address] [place] [address], [id number], [place]. tel:[phone] [facility], [address] [address], [place], [id number], [place] tel:[phone] Infusion Chuck Crohn's disease of large intestine without complications 0 3 Jacky Donaldson. [facility] [address], [id number], [place]. tel:[phone] Karl Ma MD. tel:[phone] erring Provider: Referral Self, USE FOR SELF REFERRALS. 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 [address], [id number], [place]. tel:[phone] Referring Provider: Referral Self, USE FOR SELF REFERRALS. [facility], [address] [address], [place], [address], [place] tel:[phone] [facility] Perianal Crohn's disease, with fistula 3 Yolanda Todd. [address] [place] [address], [id number], [place]. tel:[phone] Offic/outpt E&m Estab Low-mod [facility], [address] [address], [place], [address], [place] tel:[phone] [facility] GI Symptoms or Concerns (chief complaint) Perianal Crohn's disease, with fistula 3 Yolanda Todd. [address] [facility], [facility] [address], [place], [place], [address], [place]. tel:[phone] Karl Ma MD. tel:[phone] erring Provider: Referral Self, USE FOR SELF REFERRALS. [facility], [address] [address], [place], [address], [place] tel:[phone] Infusion Chuck Crohn's disease of large intestine without complications 3 Axel Portillo. [address] [facility] [address], [place], [address], [place]. tel:[phone] Referring Provider: Referral Self, USE FOR SELF REFERRALS. [facility], [address] [address], [place], [address], [place] tel:[phone] [facility] Crohn's disease of large intestine without complications 3 Yolanda Todd. [address] [facility] [address], [place], [address], [place]. tel:[phone] Karl Ma MD. tel:[phone] erring Provider: Referral Self, USE FOR SELF REFERRALS. [facility], [address] [address], [place], [address], [place] tel:[phone] Infusion Bent Crohn's disease of large intestine without complications 3 Yolanda Todd. [address] [facility] [address], [place], [address], [place]. tel:[phone] [facility], [address] [address], [place], [address], [place] tel:[phone] Infusion [facility] Crohn's disease of large intestine without complications 3 Irsrael Olmos. [address] [facility] [address], [place], [address], [place]. tel:[phone] Karl Ma MD. tel:[phone] erring Provider: Referral Self, USE FOR SELF REFERRALS. [facility], [address] [address], [place], [address], [place] tel:[phone] [facility] Crohn's disease of large intestine without complications 3 Yolanda Todd. [address] [facility], [facility] [address], [place], [place], [address], [place]. tel:[phone] [facility], [address] [address], [place], [address], [place] tel:[phone] [facility] Crohn's disease of large intestine without complications 3 Yolanda Todd. [address] [facility], [address], [id number], [place]. tel:[phone] [facility], [address] [address], [place], [address], [place] tel:[phone] [facility] Crohn's disease of large intestine without complications 2 Yolanda Todd. [address] [facility], [address], [id number], [place]. tel:[phone] Karl Ma MD. tel:[phone] erring Provider: Referral Self, USE FOR SELF REFERRALS. [facility], [address] [address], [place], [address], [place] tel:[phone] Infusion [facility] Crohn's disease of large intestine without complications 2 Shahriar Naranjo. [address] [facility] [address], [place], [address], [place]. tel:[phone] Referring Provider: Referral Self, USE FOR SELF REFERRALS. [facility], [address] [address], [place], [address], [place] tel:[phone] Infusion [facility] Crohn's disease of large intestine without complications 2 Yolanda Todd. [address] [facility] [address], [place], [address], [place]. tel:[phone] [facility], [address] [address], [place], [address], [place] tel:[phone] [facility] Crohn's disease of large intestine without complications Sep-2 0-202 2 Hubert Cee. [address] [place] [address], [place] [address], [place], [place], [address], [place]. tel:[phone] Referring Provider: Jaye Luz, [address] [place] [address], [facility] [place], [address] . tel:[phone] [facility], [address] [address], [place], [address], [place] tel:[phone] Infusion [facility] Crohn's disease of large intestine without complications Sep-2 0 2 Ever Carlson. [address] [place] [address], [id number], [place]. tel:[phone] Karl Ma MD. tel:[phone] erring Provider: Referral Self, USE FOR SELF REFERRALS. [facility], [address] [address], [place], [id number], [place] tel:[phone] [facility] Crohn's disease of large intestine without complications Sep-2 0 2 Yolanda Todd. [address] [place] [address], [place], [place], [address], [place]. tel:[phone] Karl Ma MD. tel:[phone] erring Provider: Referral Self, USE FOR SELF REFERRALS. Offic/outpt E&m Estab Low-mod [facility], [address] [address], [place], [address], [place] tel:[phone] [facility] GI Symptoms or Concerns (chief complaint) Perianal Crohn's disease, with fistula Sep-0 6 2 Yolanda Todd. [address] [place] [address], [place], [place], [address], [place]. tel:[phone] Ma MD. tel:[phone] erring Provider: Harshal Amaya MD, [address], [place], [address]. tel:[phone] [facility], [address] [address], [place], [address], [place] tel:[phone] Infusion [facility] Crohn's disease of large intestine without complications 2 Jacky Donaldson. [address] [facility] [address], [place], [place], [address], [place]. tel:[phone] 1359Riki Ma MD. tel:[phone] erring Provider: Referral Self, USE FOR SELF REFERRALS. [facility], [address] [address], [place], [address], [place] tel:[phone] Infusion Chuck Crohn's disease of large intestine without complications 2 Jacky Donaldson. [address] [facility] [address], [place], [address], [place]. tel:[phone] Ma MD. tel:[phone] erring Provider: Referral Self, USE FOR SELF REFERRALS. [facility], [address] [address], [place], [address], [place] tel:[phone] [facility] Crohn's disease of large intestine with fistulaExternal hemorrhoidsResi dual hemorrhoidal skin tagsCrohn's disease of large intestine with fistula 2 Yolanda Todd. [address] [facility], [address], [place], [place], [address], [place]. tel:[phone] 0584Andrez Ma MD. tel:[phone] erring Provider: Harshal Amaya MD, [address], [place], [address]. tel:[phone] [facility], [address] [address], [facility], [address], [place] tel:[phone] Infusion [facility] Crohn's disease of large intestine without complications Apr-0 2 Flori Agrawal. [address] [place] [address], [id number], . tel:[phone] 4918Andrez Ma MD. [phone] erring Provider: Referral Self, USE FOR SELF REFERRALS. [facility], [address] [address], [facility] [place], [address], [place] tel:[phone] [facility] Crohn's disease of large intestine without complications Apr-0 2 Yolanda Todd. [address] [place] [address], [id number], [place]. tel:[phone] 2219Andrez Ma MD. tel:[phone] erring Provider: Referral Self, USE FOR SELF REFERRALS. [facility], [address] [address], [place], [address], [place] tel:[phone] [facility] No Information Oct-2 2 Yumiko Lau. [address] [place] [address], [id number], [place]. tel:[phone] 7199Andrez Ma MD. tel:[phone] Offic/outpt E&m Estab Mod-hi 2 [facility], [address] [address], [place], [address], [place] tel:[phone] [facility] GI Symptoms or Concerns (chief complaint) Crohn's disease of perianal region with fistulaRash Fe-2 2 Yolanda Todd. [address] [place] [address], [id number], [place]. tel:[phone] 8714Andrez Ma MD. tel:[phone] erring Provider: Referral Self, USE FOR SELF REFERRALS. [facility], [address] [address], [place], [address], [place] tel:[phone] Infusion Bent Crohn's disease of large intestine without complications Feb-0 8-202 2 Ever Carlson. [address], [id number], [place]. tel:[phone] Karl Ma MD. tel:[phone] erring Provider: Referral Self, USE FOR SELF REFERRALS. Telephone E&M II 11-20 Min MD MILLA [facility], [address] [address], [place], [place], [id number], [place] tel:[phone] [facility] Symptoms or Concerns (chief complaint) Crohn's disease of perianal region with fistula 2 Uzielmehdi VYAS Judi. [address] [place] [address], [id number], [place]. tel:[phone] Karl Ma MD. tel:[phone] erring Provider: Referral Self, USE FOR SELF REFERRALS. [facility], [address] [address], [place], [address], [place] tel:[phone] Infusion [facility] Crohn's disease of large intestine without complications 1 Jacky Donaldson. [address] [place] [address], [id number], [place]. tel:[phone] Karl Ma MD. tel:[phone] erring Provider: Harshal Amaya MD, [address], [place], [address]. tel:[phone] [facility], [address] [address], [place], [address], [place] tel:[phone] Infusion [place] Crohn's disease of large intestine without complications 1 Hubert Cee. [address], [id number], [place]. tel:[phone] Karl Ma MD. tel:[phone] [facility], [address] [address], [place], [address], [place] tel:[phone] Infusion [place] Crohn's disease of large intestine without complications 1 Ever Carlson. [address], [id number], . tel:[phone] Karl Ma MD. tel:[phone] erring Provider: Referral Self, USE FOR SELF REFERRALS. [facility], [address] [address], [place], [address], [place] tel:[phone] [facility] Crohn's disease of perianal region with other complication 1 Yolanda Todd. [address] [place] [address], [id number], [place]. tel:[phone] Karl Ma MD. tel:[phone] erring Provider: Referral Self, USE FOR SELF REFERRALS. [facility], [address] [address], [facility], [address], [place] tel:[phone] [facility] No Information 1 Hubert Cee. [address], [id number], [place]. tel:[phone] [facility], [address] [address], [facility] [place], [address], [place] tel:[phone] Infusion [facility] Crohn's disease of large intestine without complications 1 Ashley Hendricks. [address], [id number], [place]. tel:[phone] Karl Ma MD. tel:[phone] erring Provider: Referral Self, USE FOR SELF REFERRALS. [facility], [address] [address], [place], [address], [place] tel:[phone] Infusion [facility] Crohn's disease of large intestine without complications 1 Yolanda Todd. [address] [place] [address], [id number], [place]. tel:[phone] Ma MD. tel:[phone] erring Provider: Referral Self, USE FOR SELF REFERRALS. [facility], [address] [address], [place], [id number], tel:[phone] [facility] Crohn's disease of large intestine without complications 1 Yolanda Todd. [address] [place] [address], [id number], [place]. tel:[phone] Ma MD. tel:[phone] erring Provider: Referral Self, USE FOR SELF REFERRALS. [facility], [address] [address], [place], [address], tel:[phone] Infusion [place] Crohn's disease of large intestine without complications 1 Nando Sales. [address] [place] [address], [id number], [place]. tel:[phone] Ma MD. tel:[phone] erring Provider: Harshal Amaya MD, [address] , [place], [address]. tel:[phone] [facility], [address] [address], [facility] [place], [id number], tel:[phone] [facility] Crohn's disease of large intestine without complications 1 Yolanda Todd. [address] [place] [address], [id number], [place]. tel:[phone] 1958Andrez Ma MD. tel:[phone] erring Provider: Referral Self, USE FOR SELF REFERRALS. [facility], [address] [address], [facility] [place], [address], tel:[phone] [facility] No Information Nov-2 1 Hubert Cee. [address] [place] [address], [id number], [place]. tel:[phone] Ma MD. tel:[phone] [facility], [address] [address], [place], [place], [address], tel:[phone] Infusion [facility] Crohn's disease of large intestine without complications 1 Nando Sales. [address] [place] [address], [id number], . tel:[phone] Ma MD. tel:[phone] erring Provider: Referral Self, USE FOR SELF REFERRALS. [facility], [address] [address], [place], [place], [id number], tel:[phone] Infusion [place] Crohn's disease of large intestine without complications 1 Ever Carlson. [address] [place] [address], [id number], . tel:[phone] Ma MD. tel:[phone] erring Provider: Referral Self, USE FOR SELF REFERRALS. Offic/outpt E&m Estab Low-mod [facility], [address] [address], [place], [place], [id number], tel:[phone] [facility] GI Symptoms or Concerns (chief complaint) Crohn's disease of perianal region with other complicationRas h, skin 0 Hubert Cee. [address] [place] [address], [id number], [place]. tel:[phone] Ma MD. tel:[phone] erring Provider: Referral Self, USE FOR SELF REFERRALS. [facility], [address] [address], [place], [place], [address], tel:[phone] [facility] Crohn's disease of large intestine without complications 0 Yolanda Todd. [address] [place] [address], [id number], [place]. tel:[phone] Ma MD. tel:[phone] [facility], [address] [address], [place], [address], [place] tel:[phone] Infusion [place] Crohn's disease of large intestine without complications 0 Ashley Hendricks. [address], [id number], [place]. tel:[phone] Ma MD. [phone] erring Provider: Referral Self, USE FOR SELF REFERRALS. [facility], [address] [address], [place], [address], [place] tel:[phone] [facility] Crohn's disease of large intestine without complications 0 Yolanda Todd. [address] [place] [address], [id number], [place]. tel:[phone] Ma MD. tel:[phone] erring Provider: Referral Self, USE FOR SELF REFERRALS. [facility], [address] [address], [place], [address], [place] tel:[phone] [facility] No Information 0 Yolanda Todd. [address], [id number], [place]. tel:[phone] Ma MD. tel:[phone] [facility], [address] [address], [place], [address], [place] tel:[phone] Infusion [facility] Crohn's disease of large intestine without complications 0 Ever Carlson. [facility], [address], [id number], [place]. tel:[phone] Ma MD. tel:[phone] erring Provider: Harshal Amaya MD, [address], [place], [address]. tel:[phone] [facility], [address] [address], [place], [id number], [place] tel:[phone] Infusion [place] Crohn's disease of large intestine without complications 0 Emi Aguilar. [address] [place] [address], [id number], . tel:[phone] Ma MD. tel:[phone] erring Provider: Referral Self, USE FOR SELF REFERRALS. Established Level 3 or 15-24 min [facility], [address] [address], [place], [id number], [place] tel:[phone] [facility] GI Symptoms or Concerns (chief complaint) Crohn's disease of perianal region with fistulaPenile cyst 0 Yolanda Todd. [address] [place] [address], [id number], [place]. tel:[phone] Ma MD. tel:[phone] erring Provider: Referral Self, USE FOR SELF REFERRALS. [facility], [address] [address], [place], [address], [place] tel:[phone] [facility] Crohn's disease of large intestine without complications 0 Ever Carlson. [address] [place] [address], [id number], [place]. tel:[phone] Ma MD. tel:[phone] erring Provider: Referral Self, USE FOR SELF REFERRALS. [facility], [address] [address], [place], [address], [place] tel:[phone] [facility] Crohn's disease of large intestine without complications 0 Yolanda Todd. [address] [place] [address], [id number], [place]. tel:[phone] Ma MD. tel:[phone] erring Provider: Referral Self, USE FOR SELF REFERRALS. [facility], [address] [address], [place], [address], [place] tel:[phone] Infusion [facility] Crohn's disease of large intestine without complications Oct-3 0 Axel Portillo. [address] [place] [address], [id number], . tel:[phone] aM MD. [phone] erring Provider: Referral Self, USE FOR SELF REFERRALS. [facility], [address] [address], [place], [address], [place] tel:[phone] Infusion [facility] Crohn's disease of large intestine without complications 0 0 Hubert Cee. [address] [place] [address], [id number], . tel:[phone] Ma MD. [phone] erring Provider: Referral Self, USE FOR SELF REFERRALS. 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 [address] [place] [address], [id number], [place]. tel:[phone] [facility], [address] [address], [place], [address], [place] tel:[phone] Infusion [facility] Crohn's disease of large intestine without complications 9 Nando Sales. [address] [place] [address], [id number], [place]. tel:[phone] Ma MD. [phone] erring Provider: Referral Self, USE FOR SELF REFERRALS. [facility], [address] [address], [place], [address], [place] tel:[phone] [facility] Crohn's disease of large intestine without complications 9 Yolanda Todd. [address], [id number], [place]. tel:[phone] Ma MD. tel:[phone] erring Provider: Referral Self, USE FOR SELF REFERRALS. [facility], [address] [address], [place], [address], [place] tel:[phone] Infusion [facility] No Information 9 Yolanda Todd. [address], [id number], [place]. tel:[phone] Ma MD. tel:[phone] [facility], [address] [address], [place], [address], [place] tel:[phone] Infusion [place] Crohn's disease of large intestine without complications 9 Jacky Donaldson. [address], [id number], [place]. tel:[phone] Ma MD. tel:[phone] erring Provider: Referral Self, USE FOR SELF REFERRALS. [facility], [address] [address], [place], [address], [place] tel:[phone] Infusion [facility] Crohn's disease of large intestine without complications 9 Nando Sales. [address], [id number], [place]. tel:[phone] Ma MD. tel:[phone] erring Provider: Referral Self, USE FOR SELF REFERRALS. [facility], [address] [address], [place], [address], [place] tel:[phone] Infusion [facility] No Information 9 Yolanda Todd. [address], [address], [id number], . tel:[phone] Referring Provider: Referral Self, USE FOR SELF REFERRALS. [facility], [address] [address], [facility] [place], [address], tel:[phone] Infusion [facility] Crohn's disease of large intestine without complications Ashley Hendricks. [address], [id number], . tel:[phone] Karl Ma MD. tel:[phone] erring Provider: Referral Self, USE FOR SELF REFERRALS. [facility], [address] [address], [place], [address], tel:[phone] [facility] Crohn's disease of large intestine without complications Yolanda Todd. [address] [place] [address], [id number], [place]. tel:[phone] Karl Ma MD. tel:[phone] erring Provider: Referral Self, USE FOR SELF REFERRALS. [facility], [address] [address], [facility] [place], [address], tel:[phone] Infusion [facility] Crohn's disease of large intestine without complications 9 Yolanda Todd. [address] [place] [address], [id number], [place]. tel:[phone] Karl Ma MD. tel:[phone] erring Provider: Referral Self, USE FOR SELF REFERRALS. Offic/outpt E&m Estab Low-mod [facility], [address] [address], [place], [address], tel:[phone] [facility] GI Symptoms or Concerns (chief complaint) Crohn's disease of perianal region with fistulaSensatio n of plugged ear on left sideElevated blood-pressure reading, w/o diagnosis of htn Yolanda Todd. [address], [id number], [place]. tel:[phone] Karl Ma MD. tel:[phone] erring Provider: Referral Self, USE FOR SELF REFERRALS. [facility], [address] [address], [place], [address], [place] tel:[phone] Infusion [facility] Crohn's disease of large intestine without complications 9 Axel Portillo. 3001 [facility] [place], [address], [place]. tel:[phone] 0066Riki Ma MD. tel:[phone] erring Provider: Referral Self, USE FOR SELF REFERRALS. [facility], [address] [address], [place], [address], [place] tel:[phone] [facility] Crohn's disease of large intestine without complications 9 Yolanda Todd. [address], [id number], [place]. tel:[phone] Ma MD. tel:[phone] erring Provider: Harshal Amaya MD, [address] [facility] [address] , [place], [address]. tel:[phone] [facility], [address] [address], [place], [address], [place] tel:[phone] [facility] Crohn's disease of large intestine without complications 9 Yolanda Todd. 3001 [facility] [place], [place], [id number], [place]. tel:[phone] 1848Andrez Ma MD. 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 [address] [place] [address], [id number], [place]. tel:[phone] [facility], [address] [address], [place], [address], [place] tel:[phone] Infusion [facility] Crohn's disease of large intestine without complications 9 Nando Sales. [address] [place] [address], [id number], [place]. tel:[phone] Ma MD. [phone] erring Provider: Referral Self, USE FOR SELF REFERRALS. 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 [address] [place] [address], [id number], [place]. tel:[phone] Ma MD. [phone] erring Provider: Referral Self, USE FOR SELF REFERRALS. [facility], [address] [address], [place], [address], [place] tel:[phone] Infusion [place] Crohn's disease of large intestine without complications 8 George Steiner. [address] [place] [address], [id number], [place]. tel:[phone] Ma MD. [phone] erring Provider: Referral Self, USE FOR SELF REFERRALS. 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 [address] [place] [address], [id number], [place]. tel:[phone] Ma MD. [phone] erring Provider: Referral Self, USE FOR SELF REFERRALS. Offic/outpt E&m Estab Low-mod [facility], [address] [address], [place], [id number], [place] tel:[phone] [facility] GI Symptoms or Concerns (chief complaint) Crohn's disease of perianal region with fistulaPenile cyst Sep-0 8 Yolanda Todd. [address] [place] [address], [id number], [place]. tel:[phone] Ma MD. tel:[phone] erring Provider: Referral Self, USE FOR SELF REFERRALS. [facility], [address] [address], [place], [id number], [place] tel:[phone] Infusion [facility] Crohn's disease of large intestine without complications 8 Zaire Light. [address] [place] [address], [id number], [place]. tel:[phone] Ma MD. tel:[phone] erring Provider: Referral Self, USE FOR SELF REFERRALS. [facility], [address] [address], [place], [address], [place] tel:[phone] [facility] Crohn's disease of large intestine without complications 8 Yolanda Todd. [address] [place] [address], [id number], [place]. tel:[phone] Ma MD. tel:[phone] erring Provider: Referral Self, USE FOR SELF REFERRALS. 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 [address] [place] [address], [id number], . tel:[phone] Ma MD. tel:[phone] erring Provider: Referral Self, USE FOR SELF REFERRALS. 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 [address] [place] [address], [id number], [place]. tel:[phone] Ma MD. [phone] erring Provider: Referral Self, USE FOR SELF REFERRALS. 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 [address] [place] [address], [id number], [place]. tel:[phone] 1906Andrez Ma MD. [phone] erring Provider: Referral Self, USE FOR SELF REFERRALS. [facility], [address] [address], [place], [address], [place] tel:[phone] [facility] Crohn's disease of large intestine without complications 8 Yolanda Tdod. [address] [place] [address], [id number], [place]. tel:[phone] Ma MD. [phone] erring Provider: Referral Self, USE FOR SELF REFERRALS. [facility], [address] [address], [place], [address], [place] tel:[phone] Infusion [facility] Crohn's disease of large intestine without complications 7 Yolanda Todd. [address] [place] [address], [id number], [place]. tel:[phone] Ma MD. [phone] erring Provider: Listed Not. [facility], [address] [address], [place], [id number], [place] tel:[phone] Infusion [place] Crohn's disease of large intestine without complications 7 Zaire Light. [address], [id number], [place]. tel:[phone] Ma MD. [phone] erring Provider: Referral Self, USE FOR SELF REFERRALS. [facility], [address] [address], [place], [id number], [place] tel:[phone] [facility] Crohn's disease of perianal region, with fistula 7 Yolanda Todd. [address], [id number], [place]. tel:[phone] Ma MD. tel:[phone] Offic/outpt E&m Estab Mod-hi 2 [facility], [address] [address], [place], [id number], [place] tel:[phone] [facility] GI Symptoms or Concerns (chief complaint) Crohn's disease of perianal region, with fistulaLesion of lipElevated blood-pressure reading, w/o diagnosis of htn Yolanda Todd. [address] [place] [address], [id number], [place]. tel:[phone] Ma MD. [phone] erring Provider: Referral Self, USE FOR SELF REFERRALS. [facility], [address] [address], [place], [id number], [place] tel:[phone] Infusion [place] Crohn's disease of large intestine without complications 7 Alvaro Grayson [address] [place] [address], [id number], [place]. tel:[phone] Ma MD. [phone] erring Provider: Referral Self, USE FOR SELF REFERRALS. [facility], [address] [address], [place], [address], [place] tel:[phone] Infusion [facility] Crohn's disease of large intestine without complications May-2 7 Nando Sales. [address] [place] [address], [id number], [place]. tel:[phone] Ma MD. [phone] erring Provider: Referral Self, USE FOR SELF REFERRALS. [facility], [address] [address], [place], [address], [place] tel:[phone] Infusion [place] Crohn's disease of large intestine without complications Apr-0 7 Yolanda Todd. [address] [place] [address], [id number], [place]. tel:[phone] Ma MD. [phone] erring Provider: Referral Self, USE FOR SELF REFERRALS. [facility], [address] [address], [place], [address], [place] tel:[phone] [facility] Crohn's disease of large intestine without complications Apr-0 7 Yolanda Todd. [address] [place] [address], [id number], [place]. tel:[phone] Ma MD. [phone] erring Provider: Referral Self, USE FOR SELF REFERRALS. [facility], [address] [address], [place], [address], [place] tel:[phone] [facility] Crohn's disease of large intestine without complications Mar-2 7 Yolanda Todd. [address] [place] [address], [id number], [place]. tel:[phone] Ma MD. tel:[phone] [facility], [address] [address], [place], [address], [place] tel:[phone] Infusion [facility] Crohn's disease of large intestine without complications 7 Jacky Donaldson. [address] [facility], [address], [id number], [place]. tel:[phone] Ma MD. [phone] erring Provider: Referral Self, USE FOR SELF REFERRALS. [facility], [address] [address], [place], [address], [place] tel:[phone] [facility] Crohn's disease of large intestine without complications 7 Yolanda Todd. [address] [place] [address], [id number], [place]. tel:[phone] [facility], [address] [address], [place], [address], [place] tel:[phone] Infusion [facility] Crohn's disease of large intestine without complications 6 Hubert Cee. [address] [facility] [address], [place], [id number], [place]. tel:[phone] Ma MD. [phone] erring Provider: Referral Self, USE FOR SELF REFERRALS. [facility], [address] [address], [place], [address], [place] tel:[phone] [facility] Crohn's disease of large intestine without complications 6 Yolanda Todd. [address]001 [facility] [place], [id number], [place]. tel:[phone] Karl Ma MD. [phone] erring Provider: Referral Self, USE FOR SELF REFERRALS. [facility], [address] [address], [place], [address], [place] tel:[phone] Infusion [place] Crohn's disease of large intestine without complications 6 No Information Karl Ma MD. tel:[phone] erring Provider: Referral Self, USE FOR SELF REFERRALS. [facility], [address] [address], [place], [address], [place] tel:[phone] [facility] Crohn's disease of large intestine without complications 6 Yolanda Todd. [address] [place] [address], [address], [id number], [place]. tel:[phone] Karl Ma MD. tel:[phone] [facility], [address] [address], [place], [place], [id number], [place] tel:[phone] In[facility] Crohn's disease of large intestine without complications 6 Jacky Donaldson. [address] [place] [address], [id number], [place]. tel:[phone] Ma MD. [phone] erring Provider: Referral Self, USE FOR SELF REFERRALS. [facility], [address] [address], [place], [id number], [place] tel:[phone] In[facility] Crohn's disease of large intestine without complications 6 Delbert Winchester. [address] [place] [address], 62 [address], [id number], [place]. tel:[phone] Ma MD. [phone] erring Provider: Harshal Amaya MD, [address] , [place], [address]. tel:[phone] [facility], [address] [address], [place], [address], [place] tel:[phone] [facility] Crohn's disease of large intestine without complications 6 Yolanda Todd. [address] [place] [address], [address], [id number], [place]. tel:[phone] Ma MD. tel:[phone] erring Provider: Harshal Amaya MD, [address], [place], [address]. tel:[phone] [facility], [address] [address], [place], [id number], [place] tel:[phone] Infusion [place] Crohn's disease of large intestine without complications Apr-2 5-201 6 Axel Portillo. [address], [id number], [place]. tel:[phone] Ma MD. tel:[phone] erring Provider: Harshal Amaya MD, [address], [place], [address]. tel:[phone] [facility], [address] [address], [facility] [address], [place] tel:[phone] [facility] Crohn's disease of large intestine without complications Apr-2 0-201 6 Yolanda Todd. [address] [facility] [place], [place], [id number], [place]. tel:[phone] Ma MD. tel:[phone] [facility], [address] [address], [place], [address], [place] tel:[phone] Infusion [place] Crohn's disease of large intestine without complications Mar-0 1201 6 Flori Agrawal. [address]001 [facility] [place], [place], [address], [place]. tel:[phone] Ma MD. [phone] erring Provider: Harshal Amaya MD, [address], [place], [address]. tel:[phone] Offic/outpt E&m Estab Mod-hi 2 [facility], [address] [address], [place], [address], [place] tel:[phone] [facility] GI Symptoms or Concerns (chief complaint) Crohn's disease of perianal region, with fistulaDietary counseling and surveillanceEle vated blood-pressure reading, w/o diagnosis of htn 6 Yolanda Todd. [address] [place] [address], [id number], [place]. tel:[phone] Ma MD. tel:[phone] erring Provider: Harshal Amaya MD, [address], [place], [address]. tel:[phone] [facility], [address] [address], [place], [address], [place] tel:[phone] Infusion [place] Crohn's disease of large intestine without complications 6 Hubert Cee. [address] [place] [address], [id number], [place]. tel:[phone] Ma MD. tel:[phone] erring Provider: Harshal Amaya MD, [address], [place], [address]. tel:[phone] [facility], [address] [address], [place], [address], [place] tel:[phone] [place] [facility] Crohn's disease of perianal region without complication 5 Yolanda Todd. [address] [place] [address], [id number], [place]. tel:[phone] Ma MD. tel:[phone] erring Provider: Harshal Amaya MD, [address], [place], [address]. tel:[phone] [facility], [address] [address], [place], [address], [place] tel:[phone] Infusion [place] Crohn's disease of large intestine without complications 5 Flori Agrawal. [address] [place] [address], [id number], [place]. tel:[phone] Ma MD. tel:[phone] erring Provider: Harshal Amaya MD, [address], [place], [address]. tel:[phone] [facility], [address] [address], [place], [address], [place] tel:[phone] [facility] Crohn's disease of perianal region without complication 5 Yolanda Todd. [address] [facility] [address], [place], [address], [place]. tel:[phone] Ma MD. tel:[phone] [facility], [address] [address], [place], [address], [place] tel:[phone] [facility] Crohn's disease of perianal region without complication 0 5 Trish Ignacio. [address], [id number], [place]. tel:[phone] Ma MD. tel:[phone] [facility], [address] [address], [place], [address], [place] tel:[phone] Infusion [place] Crohn's Colitis 5 Theresa Patton. [address]001 [facility] [address], [place], [address], [place]. tel:[phone] Ma MD. tel:[phone] erring Provider: Harshal Amaya MD, [address], [place], [address]. tel:[phone] [facility], [address] [address], [place], [address], [place] tel:[phone] Infusion [place] Regional Enteritis Nos 5 Nando Sales. [address]001 [facility] [address], [place], [address], [place]. tel:[phone] Karl Ma MD. tel:[phone] erring Provider: Harshal Amaya MD, [address], [place], [address]. tel:[phone] [facility], [address] [address], [place], [address], [place] tel:[phone] [facility] No Information 5 Carlos Alberto Kruger. [address] [address], [place], [place], [address], [place]. tel:[phone] Karl Ma MD. tel:[phone] erring Provider: Harshal Amaya MD, [address], [place], [address]. tel:[phone] [facility], [address] [address], [place], [address], [place] tel:[phone] Infusion [place] [facility] Enteritis Nos 5 Hubert Cee. [address] [address], [place], [place], [address], [place]. tel:[phone] Karl Ma MD. tel:[phone] erring Provider: Harshal Amaya MD, [address], [place], [address]. tel:[phone] [facility], [address] [address], [place], [address], [place] tel:[phone] [facility] Crohn's Ileitis 5 Fina Barreto. [address] [address], [place], [place], [address], [place]. tel:[phone] [facility], [address] [address], [place], [address], [place] tel:[phone] [facility] Crohn's Ileitis Nov- 5 Yolanda Todd. [address], [address], [id number], [place]. tel:[phone] Ma MD. tel:[phone] [facility], [address] [address], [place], [place], [address], [place] tel:[phone] Infusion [place] [facility] Enteritis Nos 5 Flori Agrawal. [address] [place] [address], [id number], [place]. tel:[phone] Ma MD. [phone] erring Provider: Harshal Amaya MD, [address], [place], [address]. tel:[phone] [facility], [address] [address], [place], [place], [address], [place] tel:[phone] [facility] No Information 5 Yolanda Todd. [address] [place] [address], [id number], [place]. tel:[phone] Ma MD. tel:[phone] Offic/outpt E&m Estab Mod-hi 2 [facility], [address] [address], [place], [place], [address], [place] tel:[phone] [facility] GI Symptoms or Concerns (chief complaint) Crohn's disease of perianal regionAnal painDietary Surveil/child welfare counselor Elev Bl Pres W/o HypertnCrohn's disease of large intestine without complicationsOt her specified diseases of anus and rectumElevated blood-pressure reading, without diagnosis of hypertensionDie tary counseling and surveillance 5 Yolanda Todd. [address] [place] [address], [id number], [place]. tel:[phone] Ma MD. [phone] erring Provider: Referral Self, USE FOR SELF REFERRALS. [facility], [address] [address], [place], [address], [place] tel:[phone] Infusion [place] [facility] Enteritis Nos 5 Yolanda Todd. [address] [place] [address], [id number], [place]. tel:[phone] Ma MD. tel:[phone] erring Provider: Harshal Amaya MD, [address], [place], [address]. tel:[phone] [facility], [address] [address], [place], [address], [place] tel:[phone] [facility] Crohn's Colitis 4 Yolanda Todd. [address] [place] [address], [id number], [place]. tel:[phone] Ma MD. tel:[phone] erring Provider: Harshal Amaya MD, [address], [place], [address]. tel:[phone] [facility], [address] [address], [place], [address], [place] tel:[phone] Infusion [place] [facility] Enteritis Nos 4 Nando Sales. [address] [place] [address], [id number], [place]. tel:[phone] Ma MD. tel:[phone] erring Provider: Harshal Amaya MD, [address], [place], [address]. tel:[phone] [facility], [address] [address], [place], [address], [place] tel:[phone] Infusion [place] [facility] Enteritis Nos 4 Yolanda Todd. [address] [place] [address], [id number], [place]. tel:[phone] Ma MD. tel:[phone] erring Provider: Referral Self, USE FOR SELF REFERRALS. Offic/outpt E&m Estab Low-mod [facility], [address] [address], [place], [address], [place] tel:[phone] [facility] GI Symptoms or Concerns (chief complaint) Perianal Crohn diseaseDietary Surveil/child welfare counselor Elev Bl Pres W/o Hypertn 4 Yolanda Todd. [address] [place] [address], [address], [id number], [place]. tel:[phone] Karl Ma MD. tel:[phone] erring Provider: Referral Self, USE FOR SELF REFERRALS. [facility], [address] [address], [place], [place], [address], tel:[phone] [facility] Perianal Crohn diseaseRegional Enteritis Nos 4 Yolanda Todd. [address] [place] [address], [id number], [place]. tel:[phone] Referring Provider: Harshal Amaya MD, [address], [place], [address]. tel:[phone] [facility] [place], [address] [address], [place], [place], [address], tel:[phone] [facility]fusion [place] [facility] Enteritis Nos 4 No Information Karl Ma MD. tel:[phone] erring Provider: Referral Self, USE FOR SELF REFERRALS. Offic/outpt E&m Estab Mod-hi 2 [facility], [address] [address], [facility] [place], [address], [place] tel:[phone] [facility] GI Symptoms or Concerns (chief complaint) GI Symptoms or Concerns (chief complaint) Regional Enteritis NosPain in the abdomenRectal bleedingDietary Surveil/child welfare counselor Elev Bl Pres W/o Hypertn 4 Yolanda Todd. [address] [place] [address], [id number], [place]. tel:[phone] Karl aM MD. tel:[phone] erring Provider: Referral Self, USE FOR SELF REFERRALS. [facility], [address] [address], [place], [address], [place] tel:[phone] Infusion [place] [facility] Enteritis Nos 4 Carlos Alberto Kruger. [address] [place] [address], [id number], [place]. tel:[phone] Referring Provider: Harshal Amaya MD, [address], [place], [address]. tel:[phone] [facility], [address] [address], [place], [address], [place] tel:[phone] [facility] Regional Enteritis Nos 4 Cassie Flood. [address] [place] [address], [id number], [place]. tel:[phone] Referring Provider: Referral Self, USE FOR SELF REFERRALS. [facility], [address] [address], [place], [address], [place] tel:[phone] Infusion [place] [facility] Enteritis Nos 4 No Information Referring Provider: Harshal Amaya MD, [address], [place], [address]. tel:[phone] [facility], [address] [address], [place], [address], [place] tel:[phone] Infusion [place] [facility] Enteritis Nos 4 Yolanda Todd. [address] [place] [address], [id number], [place]. tel:[phone] Referring Provider: Referral Self, USE FOR SELF REFERRALS. [facility], [address] [address], [place], [address], [place] tel:[phone] [facility] Regional Enteritis Nos Efrain-0 7-201 4 No Information Referring Provider: Referral Self, USE FOR SELF REFERRALS. [facility], [address] [address], [place], [id number], [place] tel:[phone] [facility] Enteritis Nos Nov-0 8- 3 Trish Ignacio. [address] [facility], [place], [place], [address], [place]. tel:[phone] Referring Provider: Referral Self, USE FOR SELF REFERRALS. [facility], [address] [address], [place], [address], [place] tel:[phone] Infusion [place] [facility] Enteritis Nos Sep-0 3 3 Hubert Cee. [address] [facility], [facility], [place], [place], [address], [place]. tel:[phone] Referring Provider: Referral Self, USE FOR SELF REFERRALS. [facility], [address] [address], [place], [id number], [place] tel:[phone] [facility] Crohn's Ileitis Apr-0 3-201 3 No Information Referring Provider: Harshal Amaya MD, [address], [place], [address]. tel:[phone] [facility], [address] [address], [place], [id number], [place] tel:[phone] Infusion [place] Regional Enteritis Nos 2 3 No Information Referring Provider: Referral Self, USE FOR SELF REFERRALS. [facility], [address] [address], [place], [address], [place] tel:[phone] Infusion [place] Regional Enteritis Nos 3-201 3 No Information Referring Provider: Harshal Amaya MD, [address], [place], [address]. tel:[phone] [facility], [address] [address], [place], [address], [place] tel:[phone] Infusion [place] Crohn's Ileitis 2-201 2 No Information Referring Provider: Harshal Amaya MD, [address], [place], [address]. tel:[phone] [facility], [address] [address], [place], [id number], [place] tel:[phone] [facility] Crohn's Ileitis 7 2 Alvaro Grayson [address] [facility], [address], [id number], [place]. tel:[phone] Referring Provider: Harshal Amaya MD, [address], [place], [address]. tel:[phone] [facility], [address] [address], [place], [address], [place] tel:[phone] [facility] Regional Enteritis NosRegional Enteritis Nos 2 No Information Referring Provider: Harshal Amaya MD, [address], [place], [address]. tel:[phone] Offic/outpt E&m Estab Mod-hi 2 [facility], [address] [address], [place], [id number], [place] tel:[phone] [facility] Crohns (chief complaint) Crohn's IleitisCrohn's Ileitis 2 Cassie Flood. [address] [facility], [facility] [address], [place], [address], [place]. tel:[phone] Referring Provider: Harshal Amaya MD, [address], [place], [address]. tel:[phone] [facility], [address] [address], [place], [address], [place] tel:[phone] [facility] Crohn's Small/large Intestine 2 Cassie Flood. [address] [facility], [facility] [address], [place], [address], [place]. tel:[phone] Referring Provider: Listed Not. [facility], [address] [address], [place], [address], [place] tel:[phone] Infusion [place] Crohn's Ileitis 2 Hubert Cee. [address] [facility], [address] [address], [place], [place], [address], [place]. tel:[phone] Referring Provider: Harshal Amaya MD, [address], [place], [address]. tel:[phone] [facility], [address] [address], [place], [address], [place] tel:[phone] Infusion [place] Crohn's Small/large Intestine 2 Trish Ignacio. [address], [id number], [place]. tel:[phone] Referring Provider: Harshal Amaya MD, [address], [place], [address]. tel:[phone] [facility], [address] [address], [place], [address], [place] tel:[phone] Infusion [place] Crohn's Small/large Intestine Oct- 2 Dominick Graham. [address] [place] [address], [address], [id number], [place]. tel:[phone] Referring Provider: Harshal Amaya MD, [address], [place], [address]. tel:[phone] Offic/outpt E&m Estab Low-mod [facility], [address] [address], [place], [address], [place] tel:[phone] [facility] Crohns (chief complaint) Crohn's Small/large IntestineCrohn' s Small/large Intestine Fe 2 Cassie Flood. [address] [facility], [address], [id number], [place]. tel:[phone] Referring Provider: Harshal Amaya MD, [address], [place], [address]. tel:[phone] [facility], [address] [address], [place], [id number], [place] tel:[phone] Infusion [place] Crohn's Small/large Intestine 2 Jacky Donaldson. [address] [facility], [address], [place], [place], [address], [place]. tel:[phone] Referring Provider: Harshal Amaya MD, [address], [place], [address]. tel:[phone] Offic/outpt E&m Estab Mod-hi 2 [facility], [address] [address], [place], [address], [place] tel:[phone] [facility] Crohns (chief complaint) Crohn's Ileitis 2 No Information Referring Provider: Karl Ma MD F, [address], [place], [address]. tel:[phone] [facility], [address] [address], [place], [address], [place] tel:[phone] Infusion [place] Crohn's Small/large Intestine 9 No Information Referring Provider: Harshal Amaya MD, [address], [place], [address]. tel:[phone] [facility], [address] [address], [place], [id number], [place] tel:[phone] [facility] [place] Crohn's Small/large Intestine 2200 9 No Information Referring Provider: Harshal Amaya MD, [address], [place], [address]. tel:[phone] [facility], [address] [address], [place], [id number], [place] tel:[phone] Infusion [place] Crohn's Small/large Intestine Jair-2 1-200 9 No Information Referring Provider: Harshal Amaya MD, [address], [place], [address]. tel:[phone] Offic/outpt E&m Estab Mod-hi 2 [facility], [address] [address], [place], [id number], [place] tel:[phone] [facility] Crohn's Small/large Intestine 200 9 No Information Referring Provider: Harshal Amaya MD, [address], [place], [address]. tel:[phone] [facility], [address] [address], [place], [address], [place] tel:[phone] Infusion [place] Crohn's Ileitis 9 No Information Referring Provider: Harshal Amaya MD, [address], [place], [address]. tel:[phone] [facility], [address] [address], [place], [address], [place] tel:[phone] [facility]fusion [place] Crohn's Ileitis 9 No Information Referring Provider: Harshal Amaya MD, [address], [place], [address]. tel:[phone] Offic/outpt E&m Estab Mod-hi 2 [facility], [address] [address], [place], [address], [place] tel:[phone] [facility] Crohns (chief complaint) Crohn's Small/large IntestineCrohn' s Small/large Intestine 9 Cassie Flood. [address] [facility], [facility], [place], [place], [address], [place]. tel:[phone] Referring Provider: Aleena Infante, [address] [facility] [address], [place], [address] . tel:[phone] [facility], [address] [address], [place], [address], [place] tel:[phone] Infusion [place] Crohn's Small/large Intestine Dec- 6-200 8 No Information Referring Provider: Harshal Amaya MD, [address], [place], [address]. tel:[phone] [facility], [address] [address], [place], [address], [place] tel:[phone] Infusion [place] Crohn's Small/large Intestine Oct-0 7-200 8 No Information Referring Provider: Harshal Amaya MD, [address], [place], [address]. tel:[phone] [facility], [address] [address], [place], [address], [place] tel:[phone] Infusion [place] Crohn's Small/large Intestine Armando- 6200 8 No Information Referring Provider: Harshal Amaya MD, [address], [place], [address]. tel:[phone] [facility], [address] [address], [place], [address], [place] tel:[phone] Infusion [place] Crohn's Small/large Intestine Nov-2 1200 8 No Information Referring Provider: Harshal Amaya MD, [address], [place], [address]. tel:[phone] [facility], [address] [address], [place], [address], [place] tel:[phone] Infusion [place] Crohn's Small/large Intestine Fe- 9-200 8 No Information Referring Provider: Harshal Amaya MD, [address], [place], [address]. tel:[phone] Offic/outpt E&m Estab Low-mod [facility], [address] [address], [place], [address], [place] tel:[phone] [facility] Crohn's Small/large Intestine Feb- 5-200 8 Cassie Flood. [address] [facility], [facility] [address], [place], [place], [address], [place]. tel:[phone] Referring Provider: Listed Not. [facility], [address] [address], [place], [address], [place] tel:[phone] Infusion [place] Crohn's Colitis 3200 7 No Information Referring Provider: Harshal Amaya MD, [address], [place], [address]. tel:[phone] [facility], [address] [address], [place], [address], [place] tel:[phone] Infusion [place] Crohn's Colitis 8200 7 No Information Referring Provider: Harshal Amaya MD, [address], [place], [address]. tel:[phone] Offic/outpt E&m Estab Low-mod [facility], [address] [address], [place], [address], [place] tel:[phone] [facility] Crohn's Colitis 7 Cassie Flood. [address] [place] [address], [facility], [place], [place], [id number], [place]. tel:[phone] Referring Provider: Aleena Infante, [address] [facility] [address], [place], [address] . tel:[phone] [facility], [address] [address], [place], [address], [place] tel:[phone] Infusion [place] Crohn's Small/large Intestine 9200 7 No Information Referring Provider: Harshal Amaya MD, [address], [place], [address]. tel:[phone] [facility], [address] [address], [place], [address], [place] tel:[phone] Infusion [place] Crohn's Small/large Intestine 3200 7 Naty Griffin. [address] [facility], [address], [place], [place], [id number], [place]. tel:[phone] Referring Provider: Harshal mAaya MD, [address], [place], [address]. tel:[phone] Offic/outpt E&m Estab Low-mod [facility], [address] [address], [place], [id number], [place] tel:[phone] [facility] Crohn's Small/large Intestine Nov- 1200 7 Cassie Flood. [address] [facility], [facility] [address], [place], [place], [id number], [place]. tel:[phone] Referring Provider: Aleena Infante, [address] [facility] [address], [place], [address] . tel:[phone] [facility], [address] [address], [place], [id number], [place] tel:[phone] [facility] [place] Crohn's Colitis 7 Cassie Flood. [address] [facility], [facility] [address], [place], [place], [id number], [place]. tel:[phone] Referring Provider: Harshal Amaya MD, [address], [place], [address]. tel:[phone] [facility], [address] [address], [place], [id number], [place] tel:[phone] [facility] Crohn's Colitis 5200 6 No Information Referring Provider: Harshal Amaya MD, [address], [place], [address]. tel:[phone] Offic/outpt E&m Estab Low-mod [facility], [address] [address], [place], [id number], [place] tel:[phone] [facility] Crohn's Colitis 0200 6 [place] Flood. [address] [facility], [address], [place], [place], [id number], [place]. tel:[phone] Referring Provider: Harshal Amaya MD, [address], [place], [address]. tel:[phone] [facility], [address] [address], [place], [id number], [place] tel:[phone] [facility] [place] Crohn's Iletis Feb-2 6-200 6 No Information Offic/outpt E m Estab Low [facility], [address] [address], [facility] [place], [id number], [place] tel:[phone] [facility] Crohn's ileitis 9-200 6 Cassie Flood. [address] [facility] [address], [address], [place], [place], [id number], [place]. tel:[phone] Offic/outpt E m Estab Mod [facility], [address] [address], [facility] [place], [id number], [place] tel:[phone] [facility] Crohn's ileitis 0-200 6 No Information Offic Cons New/estab Mod- [facility], [address] [address], [facility] [place] [id number], [place] tel:[phone] [facility] Crohn's ileitis 5-200 6 No Information Referring Provider: Karl Ma MD F, [address], [place], [address]. tel:[phone] Family History Family Member Type Diagnosis Age [...] free, 3 years or older Fluarix Quad [id number] administered Source: New Immuniza tion Record Pneumococcal [...] party ID Authoriza timelia(s) Ucbharath HANDY CI [id number] Ucare MA CI [id number] [employer] CR ROZINA CI [id number] Social History Type Description Quantity Date Captured Comments Alcohol Use Details Unknown Caffeine Use Details Unknown Tobacco Use Status No Information Smoking Status No Information Sex Male Chief Complaint And Reason For Visit No Information Reason For Referral Reason For Referral No Information Plan Of Treatment Date Type Action Status Goal Vitamin D, 25-Hydroxy. Due o n due Goal Hep B Vaccine (2nd) due [...] due Goal Influenza. Due on due Goal Vitamin D, 25-Hydroxy. [...] Goal Hep B Vaccine (1st) due Goal Tdap. Due on due Goal Hep A Vaccine (2nd) due Goal DEXA Bone Density Study. Due on due Goal Dermatology - Skin Screening . Due on due Goal Hep B Vaccine (2nd) due Goal Prevnar 20. Due on due Goal Hep A Vaccine (1st) due Goal Vitamin D, 25-Hydroxy. Due o n due Goal Colonoscopy. Due on due Goal Influenza. Due on due Goal Vitamin D, 25-Hydroxy. Due o n due Goal Hep B Vaccine (2nd) due [...] on due Goal Prevnar 20. Due on 25 due Goal Hep B Vaccine (1st) due Goal Hep A Vaccine (2nd) due Goal DEXA Bone Density Study. Due on due Goal Hep B Vaccine (2nd) due Goal Tdap. Due on due Goal Vitamin D, 25-Hydroxy. Due o n due Goal Colonoscopy. Due on due Goal Vitamin D, 25-Hydroxy. Due o n due Goal Smoking status. Due on due [...] Goal Hep B Vaccine (2nd) due Goal Prevnar 20. Due [...] D, 25-Hydroxy. Due o n due Goal Smoking status. Due on due Goal Colonoscopy. Due on 023 due Goal Hep B Vaccine (2nd) due Goal Hep B Vaccine (1st) due Goal DEXA Bone Density Study. Due on due Goal Influenza. Due on due Goal Vitamin D, 25-Hydroxy. [...] Goal Colonoscopy. Due on 023 due Goal Influenza. Due on due Goal Hep A Vaccine (2nd) due Goal Prevnar 20. Due on due Goal Dermatology - Skin Screening . Due on due Goal Hep A Vaccine (1st) due Goal Tdap. Due on due Goal DEXA Bone Density Study. Due on due Goal Vitamin D, 25-Hydroxy. Due o n due Goal Smoking status. Due on due Goal Colonoscopy. Due on 023 due Goal Hep B Vaccine (2nd) due Goal Hep B Vaccine (1st) due Goal DEXA Bone Density Study. Due on due Goal Influenza. Due on due Goal Prevnar 20. Due on 24 due Goal Vitamin D, 25-Hydroxy. Due o n due Goal Hep A Vaccine (1st) due Goal Smoking status. Due on due Goal Colonoscopy. Due on 023 due Goal Hep A Vaccine (2nd) due [...] Goal Hep A Vaccine (2nd) due Goal Vitamin D, 25-Hydroxy. [...] Goal Prevnar 20. Due on due Goal Colonoscopy. Due on due Goal Influenza. Due on due Goal Dermatology - Skin Screening . Due on due Goal Hep B Vaccine (2nd) due Goal Tdap. Due on due Goal Vitamin D, 25-Hydroxy. Due o n due Goal Dermatology - Skin Screening . Due on due Goal Tdap. Due on due Goal Hep A Vaccine (1st) due Goal Hep B Vaccine (1st) due Goal Hep A Vaccine (2nd) due Goal Prevnar 20. Due on due Goal Colonoscopy. Due on 023 due Goal Hep B Vaccine (2nd) due Goal Smoking status. Due on due Goal Influenza. Due on due Goal DEXA Bone Density Study. Due on due Goal Hep A Vaccine (1st) due Goal Dermatology - Skin Screening . Due on due Goal Tdap. Due on due Goal Hep A Vaccine (2nd) due Goal Colonoscopy. Due on due Goal Influenza. Due on due Goal Hep B Vaccine (2nd) due Goal Prevnar 20. Due [...] due Goal Colonoscopy. Due on due Goal Influenza. Due on due Goal Dermatology - Skin Screening . Due on due Goal Hep A Vaccine (2nd) due Goal DEXA Bone Density Study. Due on due Goal Tdap. Due on due Goal Vitamin D, 25-Hydroxy. Due o n due Goal Hep B Vaccine (2nd) due Goal Smoking status. Due on due Goal Hep B Vaccine (1st) due Goal Hep A Vaccine (1st) due Goal Colonoscopy. Due on due Goal Prevnar 20. 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 He follows with a gauntlet pairer on a regular basis. He has had [...] weeks with premedications. He follows with a gauntlet pairer on a regular basis. I reviewed his [...] unremarkable. The patient does follow with a gauntlet pairer. He notes aline GI Symptoms or Concerns [...] his face bilaterally. He is seeing a gauntlet pairer, will be following up with him again [...] decongestant. He has not yet seen a gauntlet pairer for skin check. He did follow up [...] completely resolved and he never saw the gauntlet pairer. He had an MRI of the pelvis [...] 1-2 years for skin checks while on xizhfifn-Nbpzqs-cv in 1 year Related to Crohn's disease of perianal region with other complication -Draw vitamin B12 an d vitamin D at May 12 remicade infusion-Continue Remicade 5 mg/kg IV every 8 weeks with premeds-Calcium and vitamin D-Avoid NSAIDs-Patient will schedule Shingrix vaccinations soon-Repeat colonoscopy with TI evaluation at age 44-Dermatology visits every 1-2 years for skin checks while on pnrypyva-Densgo-qp in 1 year Related to Crohn's disease of perianal region with other complication Infliximab IV per celerated protocol Infliximab IV per celerated protocol -Draw quantiferon at 12/23/22 remicade infusion-Continue Remicade 5 mg/kg IV every 8 weeks with premeds-Calcium and vitamin D-Avoid NSAIDs-Repeat colonoscopy with TI evaluation at age 44-Dermatology visits every 1-2 years for skin checks while on sswpfsga-Mhaljc-kt in 6 months Related to Perianal Crohn's disease, with fistula Infliximab IV per ac celerated protocol -Continue Remicade 5 mg/kg IV every 8 weeks with premeds-Calcium and vitamin D-Avoid NSAIDs-I advised new COVID-19 booster soon-Repeat colonoscopy with TI evaluation at age 44-Dermatology visits every 1-2 years for skin checks while on nepmpefo-Hxbhsx-di in 6 months Related to Perianal Crohn's [...] check for any evidence of active Crohn's hsjtfwn-Nxjhts-jd in 6 months 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 Infliximab IV per celerated protocol Infliximab IV per celerated protocol -Continue Remicade 5 mg/kg IV every 8 weeks with premeds-MR enterography to reassess Crohn's disease activity-Calcium and vitamin D-Avoid NSAIDs-Dermatology appointment for yearly skin check while on remicade-Patient will follow-up with his urologist regarding chronic stable penile knif-Cilntc-vn in 6 months 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 -Labs as ordered-Con tinue Remicade with premeds-MRE to reassess for any bowel inflammation-Colorectal surgery appointment to reassess perianal disease-Fu, prevnar, hepatitis A vaccines-Calcium and vitamin D-Avoid CRXOTw-Cwnpqt-ba in 6 months Related to Crohn's disease [...] vitamin D-Avoid NSAIDs-Bone density scan-Flu vaccine when eoheojauq-Rznbxd-hs in 6 months Related to Perianal Crohn disease Lifestyle education regarding di et Related to Dietary surveillance and counseling Bone Denity, DEXA Scan Colon Cancer Prevention Related to Perianal Crohn disease -Labs as ordered-Con tinue Remicade for now-Colonoscopy with TI and colon biopsies-CORS appt for some induration and tenderness on perianal exam-Pneumovax vaccine-Calcium and vitamin D-Avoid NSAIDs-Bone density lwke-Vdbdeh-xl in 3 months Related to Rectal bleeding Lifestyle education regarding di et Related to Dietary surveillance and counseling Colonoscopy Assessments Type Assessment Date No Information Patient Care Teams Name Effective Dates (start - stop) Status Members No Information
--- NOTE | 2025-07-11 03:08 | ED.GENADULT ---
HPI - General Adult General Date Seen: 07/11/25 Chief complaint: Urogenital Problems, Male Stated complaint: difficulty urinating Time Seen by Provider: 07/11/25 03:07 History of Present Illness HPI narrative: 39 yo M with a history of Crohn's disease, tobacco use, who presents to the ER today with abdominal pain, flank pain, penile pain. He does note that he has had a few episodes of twinges of sharp pain that seem to affect the tip of his penis. These for started a couple of days ago. They actually happened while he was at dinner with his girlfriend. This sharp twinges of pain in his penis are not associated with urination. He is not noticing any symptoms such as dysuria, hematuria, or urinary frequency. He has been in a stable relationship with his girlfriend for 6 years and does not have any specific concern for STI. Tonight, he had an abrupt change in symptoms at about 1 or 2:00 a.m. in the morning where he had fairly abrupt onset of more significant severe pain in his left flank and also in the left lower quadrant of his abdomen. He was quite intense. It also radiates to his penis (but not his testicle). Had an intense wave of nausea on the way to the hospital but did not vomit. No fever. Normal bowel movements. He does note that after arriving here he had an urge to defecate then only passed some gas and a small amount of mucus. But movements are generally normal for him and is Crohn's well controlled on Remicade. No history of kidney stones. He does have a history of a anal fistula that required surgery several years ago. No history of colovesical fistulas. Related Data Home Medications ?Medication ?Instructions ?Recorded ?Confirmed acetaminophen 500 mg tablet 500 mg PO Q4-6H PRN 02/12/22 07/11/25 infliximab 100 mg intravenous 500 mg IV .8 weeks 02/12/22 07/11/25 solution (Remicade) hydrocortisone 2.5 % topical cream 1 applic topical 12/01/22 12/01/22 Allergies Allergy/AdvReac Type Severity Reaction Status Date / Time environmental AdvReac Mild itchy eyes Uncoded 12/01/22 14:17 [facility] Medical History (Updated 07/11/25 @ 04:42 by Catalino Clayton MD) Anal fistula ?K60.3 - Anal fistula (ICD-10) Crohn's disease ?K50.90 - Crohn's disease, unspecified, without complications (ICD-10) Social History Smoking Status: Current every day smoker What tobacco products do you use: cigarettes Smoking packs per day: 0.5 Smoking cigarettes per day: 10.0 Years smoked: 0 Smoking pack-years: 0.00 Do you use any of these nicotine containing products: None Second hand tobacco smoke exposure: No How often do you have a drink containing alcohol: monthly or less How many standard drinks containing alcohol do you have on a typical day: 1 or 2 How often do you have six or more drinks on one occasion: Never AUDIT-C Alcohol total score: 1 Non-prescribed substance use: denies use service: No Exam Narrative: Exam Narrative: Constitutional: Appears well-developed and well-nourished. Alert. Uncomfortable, but despite that is trying to be Conversant. Non toxic. HENT: Head: Atraumatic. Nose: Nose normal. Mouth/Throat: Oral mucosa is clear and moist. no trismus. Pharynx normal. Tonsils symmetric. No tonsillar enlargement, erythema, or exudate. Eyes: Conjunctivae normal. EOM normal. Pupils equal, round, and reactive to light. No scleral icterus. Neck: Normal range of motion. Neck supple. No tracheal deviation present. Cardiovascular: Normal rate, regular rhythm. No gallop. No friction rub. No murmur heard. Symmetric radial artery pulses Pulmonary/Chest: Effort normal. No stridor. No respiratory distress. No wheezes. No rales. No rhonchi . No tenderness. Abdominal: Soft. Bowel sounds normal. No distension. No mass. No tenderness. No rebound. No guarding. Musculoskeletal: RUE: Normal range of motion. No tenderness. No deformity LUE: Normal range of motion. No tenderness. No deformity RLE: Normal range of motion. No edema. No tenderness. No deformity LLE: Normal range of motion. No edema. No tenderness. No deformity : Normal testicles and scrotum. No inguinal masses. Normal penile shaft. Glans of penis normal. Circumcised. No rash or lesions. Lymph: No cervical adenopathy. Neurological: Alert and oriented to person, place, and time. Normal strength. CN II-VII intact. No sensory deficit. GCS eye subscore is 4. GCS verbal subscore is 5. GCS motor subscore is 6. Normal coordination Skin: Skin is warm and dry. No rash noted. No pallor. Normal capillary refill. Psychiatric: Normal mood. Normal affect. Const: Vital Signs, click to edit/add: Vital Signs - 24 hr 07/11/25 03:17 Temperature 97.3 F L Pulse Rate [Right Pulse Oximeter] 88 Respiratory Rate 24 Blood Pressure [Ri ght Upper Arm] 113/69 Pulse Oximetry 100 Oxygen Delivery Me thod Room Air Course Course ED Course: Recheck-brother at bedside. Discussed test results with patient and brother. Patient says he is feeling much better at this point not having any pain at all. Vital Signs Vital signs: Initial Vital Signs Temperature 97.3 F L 07/11/25 03:17 Temperature Source Temporal Artery Scan 07/11/25 03:17 Pulse Rate 88 07/11/25 03:17 Pulse Rhythm Regular 07/11/25 03:17 Respiratory Rate 24 07/11/25 03:17 Blood Pressure 113/69 07/11/25 03:17 Blood Pressure Mean 83 07/11/25 03:17 Blood Pressure Position Sitting 07/11/25 03:17 Pulse Oximetry 100 07/11/25 03:17 Oxygen Delivery Method Room Air 07/11/25 03:17 Vital Signs Temperature 97.3 F L 07/11/25 03:17 Pulse Rate 88 07/11/25 03:17 Respiratory Rate 24 07/11/25 03:17 Blood Pressure 113/69 07/11/25 03:17 Pulse Oximetry 100 07/11/25 03:17 Oxygen Delivery Method Room Air 07/11/25 03:17 Temperature 97.3 F L 07/11/25 03:17 Pulse Rate 88 07/11/25 03:17 Respiratory Rate 24 07/11/25 03:17 Blood Pressure 113/69 07/11/25 03:17 Pulse Oximetry 100 07/11/25 03:17 Oxygen Delivery Method Room Air 07/11/25 03:17 Medications Administered Medications: Generic Name Dose Route Start Last Admin Trade Name Freq PRN Reason Stop Dose Admin Hydromorphone HCl 0.5 mg 07/11/25 03:26 07/11/25 03:49 Hydromorphone 0.5 Mg/0.5 Ml Inj IVP 0.5 mg Q1H PRN Administration Pain Discontinued Medications Generic Name Dose Route Start Last Admin Trade Name Barbara PRN Reason Stop Dose Admin Sodium Chloride 1,000 mls @ 1,000 mls/hr 07/11/25 03:30 07/11/25 04:33 0.9 % Sodium Chloride 1000 Ml IV 07/11/25 04:29 Infused .Q1H ELMO Infusion Ketorolac Tromethamine 15 mg 07/11/25 03:26 07/11/25 03:49 Ketorolac 15 Mg/Ml Inj IVP 07/11/25 03:27 15 mg ONCE ONE Administration Ondansetron HCl 4 mg 07/11/25 03:26 07/11/25 03:49 Ondansetron 2 Mg/Ml Inj IVP 07/11/25 03:27 4 mg ONCE ONE Administration Medical Decision Making MDM Narrative Medical decision making narrative: This patient presents with a couple of days history of intermittent penile pain, not related to urination, with abrupt onset of left side abdominal pain and left flank pain overnight tonight. Differential Diagnosis considered includes: Ureterolithiasis, UTI, pyelonephritis, AAA, colitis, diverticulitis, volvulus, appendicitis, Crohn's flare, colovesical fistula, among others. At this point, the evaluation indicates that ureterolithiasis is the cause of the patient's symptoms. There are no signs that this is an infected stone. The patient's pain is controlled in ED. The patient is hemodynamically stable in ED. I think the patient is safe for discharge. The plan is discharge to home with recheck by primary care physician or urology.They will return to the ED right away if symptoms worsen (e.g Return immediately for fevers greater than 102, increasing pain, other new symptoms develop). Ureterolithiasis precautions for home. Prescriptions for pain control, nausea control, and flomax were provided. The patient's questions were answered. Instymeds prescriptions for [place] and Zofran. Opiate precautions reviewed. Lab Data Labs: Lab Results 07/11/25 07/11/25 Range/Units : 03:30 WBC 10.23 (4.50-11.00) K/uL RBC 4.27 L (4.30-5.90) m/uL Hgb 13.7 (13.5-17.5) gm/dL Hct 39.9 (37.0-53.0) % MCV 93 (80-100) fL MCH 32 (26-34) pg MCHC 34 (32-36) gm/dL RDW Coeff of Luly 11.5 (11.5-15.5) % Plt Count 254 (140-440) K/uL Neut % (Auto) 59.2 (42.0-72.0) % Lymph % (Auto) 32.6 (20-44) % [place] % (Auto) 6.7 (0.0-11.0) % Eos % (Auto) 1.0 (0.0-7.0) % Baso % (Auto) 0.4 (0.0-3.0) % Neut # (Auto) 6.06 (1.7-7.0) K/uL Lymph # (Auto) 3.33 H (0.90-2.90) K/uL [place] # (Auto) 0.70 (0.00-0.90) K/UL Eos # (Auto) 0.10 (0.00-0.50) K/uL Baso # (Auto) 0.04 (0.00-0.30) K/uL Abs Immat Gran (auto) 0.01 (0.00-0.30) K/uL Imm/Tot Granulo (auto) 0.1 % Sodium 136 (135-149) mmol/L Potassium 3.7 (3.6-5.1) mmol/L Chloride 102 (96-114) mmol/L Carbon Dioxide 23 (20-32) mmol/L Anion Gap 11 (7-15) mEq/L BUN 13 (5-24) mg/dL Creatinine 0.7 (0.5-1.5) mg/dL Estimated Creat Clear 130.50 Estimated GFR 119 ml/min Glucose 145 H (60-115) mg/dL Calcium 9.1 (8.4-10.6) mg/dL Urine Color Yellow (Yellow) Urine Appearance Slightly Cloudy A (Clear) Urine pH 5.5 (5.0-8.5) Ur Specific [place] >= 1.030 (1.000-1.030) Urine Protein 3+ A (Negative) Urine Glucose (UA) Negative (Negative) Urine Ketones 2+ A (Negative) Urine Blood 3+ A (Negative) Urine Nitrite Negative (Negative) Urine Bilirubin Negative (Negative) Urine Urobilinogen 1.0 (0.2-1.0) Ur Leukocyte Esterase Negative (Negative) Urine RBC 10-25 A (0-2) Urine WBC 2-5 (0-5) Ur Squamous Epith Cells Few (None-Few) Calcium Oxalate Crystal Moderate A (None) Amorphous Sediment Few A (None) Urine Bacteria Few A (None) Imaging Data CT scan - abdomen: Attestation: I have reviewed the pertinent imaging results. Radiologist's impression: Impression: Suspect that there is a partially obstructing distal left ureteral stone. However, motion degradation through this region limits evaluation. There is mild left hydronephrosis as well as an additional nonobstructing left renal stone measuring 2 millimeters. Discharge Plan Discharge Clinical Impression: Kidney stone on left side Patient Disposition: Home, Self-Care Condition: Stable Instructions: Kidney Stones (ED), How to Strain Your Urine (ED) Additional Instructions: As we discussed your evaluation here in the ER tonight shows that you have signs of a kidney stone moving from her left kidney down toward your bladder. Fortunately your stone is about average size at 2 mm. Study show that almost all stones of the size will be able to pass without needing surgery. It is impossible to predict how sooner stone will pass, but typically they will pass within a few days. As we discussed try to rest. If you are having mild pain you can use wboe-hno-kltyowo medications such as Tylenol or ibuprofen. For more significant pain use the prescription pain killer, [place]. Be careful because prescription pain killers can cause dizziness, drowsiness, constipation, and can be addictive. Do not drive while taking prescription pain killers. Come back to the ER right away if you have problems, especially if you have worsening or severe pain, uncontrolled nausea and vomiting, or any fever or chills. If you are still having symptoms from this kidney stone, please recheck with your doctor within 1 week. Prescriptions: No Action hydrocortisone 2.5 % cream 1 applic topical infliximab [Remicade] 100 mg recon soln 500 mg IV .8 weeks acetaminophen 500 mg tablet 500 mg PO Q4-6H PRN Follow Up/Referrals: Provider,Not a Local [Primary Care Provider, Family Practice] Stand Alone Forms: [employer] Info Instructions
--- OUTSIDE RECORDS SUMMARY | 2025-07-11 03:08 | XMS_ITS | Clinical Summary ---
Author Organization [facility] Address [address] [place] [id number] Care Team Providers Care Assistant Tennis Coach Name Role Phone Clinic, No Pcp Or Primary Care Provider Unavaila ble Allergies No known active allergies Medications inFLIXimab (REMICADE) 100 mg injection Inject intravenous one time. 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 12/11/2022 Viral warts, unspecified 02/22/2007 Crohn's disease of small and large intestines 12/11/2022 ASTHMA NOS W/O STATUS ASTHMATICUS 06/16/2001 Resolved Problems Problem Noted Date Diagnosed Date Resolved Date Regional enteritis of unspecified site 03/06/2008 12/11/2022 Other acne 06/16/2001 12/11/2022 Immunizations Immunization Administration Dates Next Due COVID-19 vaccine (AMSC-Bio NTSide.Cr 30mcg/0.3mL) 12YO+ BOO-SUCROSE PF, MDV 11/13/2021 COVID-19 vaccine (AMSC-BioNTSide.Cr 30mcg/0.3mL) P F, MDV 12/14/2020,11/23/2020 Hepatitis A (Adult) 05/12/2017,09/21/2015 Influenza, IIV3 (Age >=3 years) 07/25/2004 Influenza, IIV4 05/12/2017 Pneumococcal Poly,23-Valent (Pneumovax) 10/11/19 22,02/07/2014 Pneumococcal conj 13-Valent (Prevnar 13) 016 Tuberculin (PPD) 03/06/2008,12/30/2005 Family History Medical History Relation Name Comments Diabetes Father Good Health Mother Psychiatric illness Mother depressi on Relation Name Status Comments Father Mother Social History Tobacco Use Types Packs/Day Years Used Date Smoking Tobacco: Some Days Cigarettes 0.5 10.9 Started: 08/19/2008; Last attempted to quit: 08/19/2013 Smokeless Tobacco: Never Tobacco Cessation:Ready to Q uit: Not Asked; Counseling Given: Not Answered Alcohol Use Standard Drinks/Week Comments Not Currently 0 (1 standard drink = 0.6 oz pur e alcohol) couple drinks per year PHQ-2 Answer Date Recorded PHQ-2 Score 0 12/16/2018 Sex and Gender Information Value Date Recorded Sex Assigned at Not on file Legal Sex Male 5:24 AM SERVICES MANAGER Gender Identity Not on file Sexual Orientation Not on file Obstetrics History Last Filed Vital Signs Vital Sign Reading Time Taken Comments Blood Pressure 120/82 12/11/2022 3:20 PM CDT Pulse 100 12/11/2022 3:20 PM CDT Temperature 37.5 C (99.5 F) 10/18/2013 8:00 AM SERVICES MANAGER Respiratory Rate 16 10/18/2013 8:00 AM SERVICES MANAGER Oxygen Saturation 95% 07/12/2018 11:15 AM SERVICES MANAGER Inhaled Oxygen Concentration - - Weight 63.3 kg (139 lb 8 oz) 12/11/2022 3:20 PM CDT with shoes Height 179.7 cm (5' 10.75) 12/16/2018 8:17 AM C DT Body Mass Index 19.59 12/16/2018 8:17 AM CDT Plan of Treatment Health Maintenance Due Date Last Done Comments Tetanus booster 11/17/1995 HIV for age 15-65 11/17/1999 Hepatitis C screening for ag e 18-79 2002 Hepatitis B series for 19+ ( 1 of 3 - 19+ 3-dose series) 11/17/2003 HPV series for age 9-45 (1 - Risk 3-dose SCDM series) 11/17/2011 Lipids for age 35-44 11/17/2019 BMI (ht and wt on same day) for age 18+ 12/17/2019 12/16/2018, 07/12/2018 Depression screening for age 12+ 12/17/2019 12/16/2018 Influenza Vaccine (#1) 2025 7, 07/25/2004 RSV vaccine for adults or (1 - 1-dose 75+ series) 11/17/2059 Pneumococcal series for age 6-49 Aged Out 10/11/2021, 09/21/2015, 02/07/2014 No longer eligible based on patient's age to complete this topic Insurance [facility] Advance Directives * Full Code (Latest Code Status on File) Date Activated Date Inactivated Comments 10/17/2013 4:46 AM 10/18/2013 6:43 PM * Full Code Date Activated Date Inactivated Comments 01/28/2010 12:57 PM 01/28/2010 8:48 PM Care Teams Assistant Tennis Coach Relationship Specialty Start Date End Date Clinic, No Pcp Or . PCP - General 05/25/18
[2025-07-11 03:17] VITALS: BP 113/69; PULSE 88; RESP 24; TEMP 36.3; O2SAT 100; BMI 20.2
--- NOTE | 2025-07-11 03:26 | CRLHL7_ITS ---
For Patients: As a result of the 21st Century Cures Act, medical imaging exams and procedure reports are released immediately into your electronic medical record. You may view this report before your referring provider. If you have questions, please contact your health care provider. Indication: Left flank, suprapubic, and penile pain Technique: Noncontrast CT through the abdomen and pelvis with multiplanar reformats. Comparison: None Findings: Motion degradation through the pelvis limits evaluation of this region. This includes the distal ureter and UVJ. Lower chest: No acute abnormality appreciated. Hepatobiliary: No significant parenchymal abnormality is appreciated. Spleen: Unremarkable. Pancreas: No acute abnormality appreciated. Adrenal glands: No acute abnormality appreciated. Kidneys: Mild left hydronephrosis. Nonobstructing 2 millimeter left renal stone. Bowel: No obstruction. No focal perienteric or pericolonic stranding is appreciated. The appendix is visualized and appears unremarkable. Vascular: Poorly evaluated on this noncontrast examination. Lymph nodes: No gross lymphadenopathy. Peritoneum: No free air. No free fluid. : There is a suspected distal left ureteral stone, though this occurs within the area of artifact and can not be definitively confirmed on this study. Soft tissues: No acute abnormality appreciated. Bones: Allowing for motion degradation, no acute abnormality is appreciated. Impression: Suspect that there is a partially obstructing distal left ureteral stone. However, motion degradation through this region limits evaluation. There is mild left hydronephrosis as well as an additional nonobstructing left renal stone measuring 2 millimeters. Please note that all CT scans at this facility use dose modulation, iterative reconstruction, and/or weight-based dosing when appropriate to reduce radiation dose to as low as reasonably achievable. Dictated by Chicho Campos MD @ 07/11/2025 4:06:13 AM (Electronically Signed)
[2025-07-11 03:32] LABS: Appearance Urine Slightly Cloudy (Clear)
[2025-07-11 03:39] LABS: Hematocrit* 39.9 % (37.0-53.0); Hemoglobin* 13.7 gm/dL (13.5-17.5); Immature Granulocytes Abs Auto 0.01 K/uL (0.00-0.30); Immature Granulocytes Pct Auto 0.1 %; Lymphocytes Absolute Auto 3.33 K/uL (0.90-2.90); Mean Corpuscular HGB Conc 34 gm/dL (32-36); Mean Corpuscular Hemoglobin 32 pg (26-34); Mean Corpuscular Volume 93 fL (80-100); RDW Coefficient of Variation % 11.5 % (11.5-15.5); Red Blood Count* 4.27 m/uL (4.30-5.90); White Blood Count* 10.23 K/uL (4.50-11.00)
[2025-07-11 03:42] LABS: Slide Review Reflex No
[2025-07-11] MEDS: ONDANSETRON 2 MG/ML inj 4 MG IVP (03:49)
[2025-07-11 03:53] LABS: Chloride* 102 mmol/L (96-114)
[2025-07-11 03:54] LABS: Potassium* 3.7 mmol/L (3.6-5.1); Sodium* 136 mmol/L (135-149)
[2025-07-11 03:56] LABS: Blood Urea Nitrogen* 13 mg/dL (5-24); Creatinine* 0.7 mg/dL (0.5-1.5); Est. Creatinine Clearance* 130.50; Estimated Glomerular Filt Rate 119 ml/min
[2025-07-11 03:57] LABS: Anion Gap 11 mEq/L (7-15); Calcium* 9.1 mg/dL (8.4-10.6); Carbon Dioxide* 23 mmol/L (20-32); Glucose* 145 mg/dL (60-115)
== END 2025-07-11 04:56 | disposition home or self-care (01) ==
PROVIDERS: Emergency Provider Emergency Medicine
DX: N20.0 Calculus of kidney (principal)
CPT/HCPCS: 36415; 74176; 80048; 81001; 81003; 85025; 87086; 94761; 96374; 96375; 99283; 99284; J1171; J1885; J2405; J7030